=== PATIENT | male | born 1980 | race Caucasian/White ===

== ENCOUNTER 2022-01-31 15:24 | Inpatient (IN) | payer SELFPAY ==
[2022-01-31] VITALS (9 sets, daily range): BP systolic 118–144; BP diastolic 71–84; PULSE 105–121; RESP 16–27; TEMP 36.9–37.1; O2SAT 94–97; BMI 31.2; BMI 32.7
--- NOTE | 2022-01-31 15:42 | XRR_ITS ---
PROCEDURE INFORMATION: Exam: XR Right Tibia and Fibula Exam date and time: 01/31/2022 4:00 PM Age: 42 years old Clinical indication: Condition or disease; Other: Infection; Additional info: Eval for gas TECHNIQUE: Imaging protocol: XR Right tibia and fibula. Views: 2 views. COMPARISON: No relevant prior studies available. FINDINGS: Bones/joints: Osseous structures are intact. Negative for fracture. No irregular osseous erosions. Joint spaces are preserved. 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 Soft tissues: No subcutaneous emphysema. XR/XR tibia fibula RT 2V [id number] IMPRESSION: No acute findings.
--- NOTE | 2022-01-31 15:42 | XRR_ITS ---
PROCEDURE INFORMATION: Exam: XR Right Foot Exam date and time: 01/31/2022 4:05 PM Age: 42 years old Clinical indication: Condition or disease; Other: Infection; Additional info: Foot infection TECHNIQUE: Imaging protocol: XR Right foot. Views: 1 or 2 views. COMPARISON: CR XR tibia fibula RT 2V [id number] 01/31/2022 4:00 PM FINDINGS: Bones/joints: Osseous structures are intact. Negative for fracture. No irregular osseous erosions. Joint spaces are preserved. Soft tissues: No subcutaneous emphysema. XR/XR foot RT 2V [id number] IMPRESSION: No acute findings.
--- NOTE | 2022-01-31 16:24 | CTR_ITS ---
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 Contrast material: OMNI 300; Contrast volume: 95 ml; Contrast route: INTRAVENOUS (IV); COMPARISON: CR XR foot RT 2V [id number] 01/31/2022 4:05 PM RADIATION DOSE METRICS: Total DLP (mGy-cm): 245 FINDINGS: Soft tissue swelling around the 1st digit. Osseous structures are intact without fracture or irregular osseous erosions. No subcutaneous emphysema. Please note the distal most tuft of the 1st digit is excluded from the field of view. This, however, had a normal appearance on corresponding radiographs. CT/CT foot RT wo/w con [id number] IMPRESSION: Negative for subcutaneous emphysema. No evidence of osteomyelitis. Soft tissue swelling of the 1st digit.
--- NOTE | 2022-01-31 16:32 | ED_ITS ---
HPI - Extremity Problem General: Chief complaint: Extremity Injury, Lower Stated complaint: right foot pain/sore Time Seen by Provider: 01/31/22 15:42 Course Vital Signs: Vital signs: Vital Signs Temperature 98.5 F 01/31/22 15:34 Pulse Rate 121 H 01/31/22 15:34 Respiratory Rate 18 01/31/22 15:34 Blood Pressure 130/81 01/31/22 15:34 Pulse Oximetry 97 01/31/22 15:34 MDM - Extremity (Nontraumatic) Lab Data Radiology Impressions Foot X-Ray 01/31/22 15:42 IMPRESSION: No acute findings. Tibia/Fibula X-Ray 01/31/22 15:42 IMPRESSION: No acute findings. 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
--- NOTE | 2022-01-31 16:34 | ED_ITS ---
HPI - General Adult General: Chief complaint: Extremity Injury, Lower Stated complaint: right foot pain/sore Time Seen by Provider: 01/31/22 15:42 History of Present Illness: Patient is a 41-year-old male with history of uncontrolled diabetes c/b l toe amputation presenting to the emergency room with complaints of severe right-sided foot pain. Patient tells me about a week ago when he sustained a puncture wound to the base of his right big toe. Since then, patient has been doing well up until a day ago when she experienced sudden onset of pain that is now tracking up his leg. Patient says the pain is excruciating. Patient denies any drainage from the wound. Patient was told to come to the emergency room for evaluation and possible IV antibiotics. Patient says he has significant pain to walking. Denies any fever or chills, leg pain, nausea/vomting, other source of complaints today. Onset:1 week ago of wound, 1 day of significant foot pain Duration:acutely 1 week Location:home Severity:moderate Associated symptoms: Reports rash (+R foot pain); Deny chest pain, dyspnea, nausea, palpitations or vomiting Review of Systems Const: Denies: fever(s) or chills Eyes: Denies: change in vision ENMT: Denies: mouth pain Card: Denies: chest pain or palpitations Resp: Denies: dyspnea or non-productive cough GI: Denies: abdominal pain, nausea, vomiting or diarrhea : Denies: dysuria Musc: Reports: extremity pain Skin/Breast: Reports: rash (+R foot pain) Neuro: Denies: weakness in extremities Psych: Reports: other (Normal mood) Terry/Lymph: Denies: easy bruising PFS ED PFSH: Medical History (Updated 01/31/22 @ 17:53 by Rosalind Ayers MD) Diabetes Social History (Updated 01/31/22 @ 16:36 by Rosalind Ayers MD) Smoking and tobacco status: never smoked Alcohol intake: never Substance/Drug Use: never Physical Exam Const: COMMON NORMALS: alert HENMT: COMMON NORMALS: atraumatic HEAD & SCALP: atraumatic MOUTH: moist mucous membranes not abnormal Eye: COMMON NORMALS: EOMs intact bilaterally and conjunctivae normal CONJUNCTIVA: Yes conjunctivae normal Neck/C-Spine: COMMON NORMALS: full ROM and supple Resp: COMMON NORMALS: normal respiratory effort and clear to auscultation bilaterally AUSCULTATION: clear to auscultation bilaterally Cardio: RATE: tachycardic GI: COMMON NORMALS: Soft to palpation and non-tender PALPATION: Yes Soft to palpation Extremity: COMMON NORMALS: full ROM OTHER: +R foot plantar wound with significant surrounding tenderness palpation, +mild erythema and warmth on the plantar aspect of the foot Neuro: SENSORIUM/ORIENTATION: Yes alert MOTOR EXAM: No Abnormal motor strength present and Other motor observations present (no focal motor deficits) Psych: COMMON NORMALS: speech normal SPEECH: Yes normal speech MOOD & AFFECT: Yes euthymic mood Course Vital Signs: Vital signs: Vital Signs Temperature 98.5 F 01/31/22 15:34 Pulse Rate 110 H 01/31/22 17:49 Respiratory Rate 26 H 01/31/22 17:49 Blood Pressure 130/80 01/31/22 17:49 Pulse Oximetry 94 01/31/22 17:49 MDM - General Adult Medical Decision Making 41-year-old male with history of diabetes complain about left side of toe amputation presenting to the emergency room with concerns for right-sided plantar wound no significant right foot pain. On exam, patient is afebrile with significant tenderness palpation over the right plantar midfoot. XR not showing signs of gas pattern. Bedside ultrasound not show any gas gianni nicole. CT of the foot showed subcu edema consistent with cellulitis. White count 16.6 CRP and ESR elevated to 80. Creatinine was 1.4. Patient received 2 L of fluid, vancomycin, Zosyn, and clindamycin. At the present time, patient has pain improvement. Do not suspect necrotizing soft tissue infection currently. Given significant, elevated markers and vital signs, patient will be mated to hospital for observation and IV antibiotics. Disposition: admission Lab Data : 01/31/22 16:28 01/31/22 16:28 Radiology Impressions Foot X-Ray 01/31/22 15:42 IMPRESSION: No acute findings. Tibia/Fibula X-Ray 01/31/22 15:42 IMPRESSION: No acute findings. Foot CT 01/31/22 16:24 IMPRESSION: Negative for subcutaneous emphysema. No evidence of osteomyelitis. Soft tissue swelling of the 1st digit. Laboratory Results WBC 16.6 10^3/uL (4.0-10.0) H 01/31/22 16:28 RBC 5.97 10^6/uL (4.1-5.3) H 01/31/22 16: Hgb 15.9 g/dL (11.7-16.6) 01/31/22 16: Hct 48.7 % (42.0-52.0) 01/31/22 16: MCV 81.6 fl (80-94) 01/31/22 16: MCH 26.6 pg (28.0-34.0) L 01/31/22 16: MCHC 32.6 g/dL (30.0-36.0) 01/31/22 16: RDW 14.2 % (12.1-15.1) 01/31/22: Plt Count 310 10^3/cmm (130-400) 01/31/22 16: MPV 11.0 fL (7.4-10.4) H 01/31/22 16: Neut % (Auto) 76.1 % 01/31/22 16: Lymph % (Auto) 14.3 % 01/31/22 16: [place] % (Auto) 8.0 % 01/31/22 16: Eos % (Auto) 0.4 % 01/31/22: Baso % (Auto) 0.7 % 01/31/22: Neut # (Auto) 12.59 10^3/uL (1.8-7.7) H 01/31/22 16: Lymph # (Auto) 2.4 10^3/uL (0.8-4.8) 01/31/22: [place] # (Auto) 1.3 10^3/uL (0.2-0.9) H 01/31/22 16: Eos # (Auto) 0.1 10^3/uL (0.0-0.8) 01/31/22 16: Baso # (Auto) 0.1 10^3/uL (0.0-0.1) 01/31/22 16: Nucleated RBC % (auto) 0 % 01/31/22 16: Nucleated RBCs # 0.0 /100WBC 01/31/22 16: ESR 80 mm/hr (0-10) H 01/31/22 16:28 Sodium 130 mmol/L (136-145) L 01/31/22 16:28 Potassium 4.6 mmol/L (3.5-5.1) 01/31/22 16:28 Chloride 91 mmol/L (98-107) L 01/31/22 16:28 Carbon Dioxide 23 mmol/L (22-29) 01/31/22 16:28 Anion Gap 20.6 (5-19) H 01/31/22 16:28 BUN 19 mg/dL (6-20) 01/31/22 16:28 Creatinine 1.4 mg/dL (0.7-1.2) H 01/31/22 16:28 GFR Calculation 55.6 mL/min (90-130) L 01/31/22 16:28 Glucose 418 mg/dL (65-115) H 01/31/22 16:28 Calculated Osmolality 290 mOsm/kg (285-295) 01/31/22 16:28 Calcium 11.2 mg/dL (8.5-10.5) H 01/31/22 16:28 C-Reactive Protein 80.9 mg/L (0.0-4.9) H 01/31/22 16:28 Imaging Data Other Imaging: Radiologist's impression: [place] [address] CT Scan Report Signed Patient: Karel Sinha Unit #: [id number] : 1980 Age/Sex: 41 / M ADM Date: 01/31/22 Loc: ER Room/Bed: Attending Dr: Ordering Provider/Ordering MD: Rosalind Ayers MD Date of Service: 01/31/22 Procedure(s): CT foot RT wo/w con [id number] Accession Number(s): [id number] Report Number: [id number] PROCEDURE INFORMATION: Exam: CT EXTREMITY LOWER W RIGHT Exam date and time: 01/31/2022 4:41 PM Age: 42 years old Clinical indication: Condition or disease; Other: Diabetic wound foot; Patient HX: 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 Contrast material: OMNI 300; Contrast volume: 95 ml; Contrast route: INTRAVENOUS (IV);? COMPARISON: CR XR foot RT 2V [id number] 01/31/2022 4:05 PM RADIATION DOSE METRICS: Total DLP (mGy-cm): 245 FINDINGS: Soft tissue swelling around the 1st digit. Osseous structures are intact without fracture or irregular osseous erosions. No subcutaneous emphysema. Please note the distal most tuft of the 1st digit is excluded from the field of view. This, however, had a normal appearance on corresponding radiographs. CT/CT foot RT wo/w con [id number] IMPRESSION: Negative for subcutaneous emphysema. No evidence of osteomyelitis. Soft tissue swelling of the 1st digit. ? Dictated By: Devendra Dubois DO Signed By: Devendra Dubois DO Signed Date/Time: 01/31/22 1721 DD/ [address] [address] XRay Report Signed Patient: Karel Sinha Unit #: [id number] : 1980 Age/Sex: 42 / M ADM Date: 01/31/22 Loc: ER Room/Bed: Attending Dr: Ordering Provider/Ordering MD: Rosalind Ayers MD Date of Service: 01/31/22 Procedure(s): XR tibia fibula RT 2V [id number] Accession Number(s): [id number] Report Number: [id number] PROCEDURE INFORMATION: Exam: XR Right Tibia and Fibula Exam date and time: 01/31/2022 4:00 PM Age: 42 years old Clinical indication: Condition or disease; Other: Infection; Additional info: Eval for gas TECHNIQUE: Imaging protocol: XR Right tibia and fibula. Views: 2 views. COMPARISON: No relevant prior studies available. FINDINGS: Bones/joints: Osseous structures are intact. Negative for fracture. No irregular osseous erosions. Joint spaces are preserved. 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 Soft tissues: No subcutaneous emphysema. XR/XR tibia fibula RT 2V [id number] IMPRESSION: No acute findings. ? Dictated By: Devendra Dubois DO Signed By: Devendra Dubois DO Signed Date/Time: 01/31/221612 DD/ [address] [address] XRay Report Signed Patient: Karel Sinha Unit #: [id number] : 1980 Age/Sex: 42 / M ADM Date: 01/31/22 Loc: ER Room/Bed: Attending Dr: Ordering Provider/Ordering MD: Rosalind Ayers MD Date of Service: 01/31/22 Procedure(s): XR foot RT 2V 50323 Accession Number(s): [id number] Report Number: [id number] PROCEDURE INFORMATION: Exam: XR Right Foot Exam date and time: 01/31/2022 4:05 PM Age: 42 years old Clinical indication: Condition or disease; Other: Infection; Additional info: Foot infection TECHNIQUE: Imaging protocol: XR Right foot. Views: 1 or 2 views. COMPARISON: CR XR tibia fibula RT 2V [id number] 01/31/2022 4:00 PM FINDINGS: Bones/joints: Osseous structures are intact. Negative for fracture. No irregular osseous erosions. Joint spaces are preserved. Soft tissues: No subcutaneous emphysema. XR/XR foot RT 2V [id number] IMPRESSION: No acute findings. ? 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
[2022-01-31 16:42] LABS: Basophils # 0.1 10^3/uL (0.0-0.1); Basophils % 0.7 %; Eosinophils # 0.1 10^3/uL (0.0-0.8); Eosinophils % 0.4 %; Hematocrit 48.7 % (42.0-52.0); Hemoglobin 15.9 g/dL (11.7-16.6); Lymphocytes # 2.4 10^3/uL (0.8-4.8); Lymphocytes % 14.3 %; Mean Corpuscular HGB Conc 32.6 g/dL (30.0-36.0); Mean Corpuscular Hemoglobin 26.6 pg (28.0-34.0); Mean Corpuscular Volume 81.6 fl (80-94); Monocytes # 1.3 10^3/uL (0.2-0.9); Neutrophils # 12.59 10^3/uL (1.8-7.7); Neutrophils % 76.1 %; Nucleated Red Blood Cells % 0 %; Platelet Count 310 10^3/cmm (130-400); Red Blood Count 5.97 10^6/uL (4.1-5.3); Red Cell Distribution Width 14.2 % (12.1-15.1); White Blood Count 16.6 10^3/uL (4.0-10.0)
[2022-01-31 17:10] LABS: Anion Gap 20.6 (5-19); Blood Urea Nitrogen 19 mg/dL (6-20); C Reactive Protein 80.9 mg/L (0.0-4.9); Calcium 11.2 mg/dL (8.5-10.5); Carbon Dioxide 23 mmol/L (22-29); Chloride 91 mmol/L (98-107); Glomerular Filtration Rate 55.6 mL/min (90-130); Glucose 418 mg/dL (65-115); Osmolality Calculated 290 mOsm/kg (285-295); Potassium 4.6 mmol/L (3.5-5.1); Sodium 130 mmol/L (136-145)
[2022-01-31] MEDS: HYDROmorphone 1 mg/mL INJ 1 mL 0.5 MG IVP (17:13)
[2022-01-31] MEDS: clindamycin 600 MG/50 ML PREMIX 100 MG IV (17:13)
[2022-01-31] MEDS: sodium chloride 0.9% 1,000 ML 999 ML IV (17:14)
[2022-01-31] MEDS: piperacillin-tazobactam 4.5 GM in sodium chloride 0.9% (plus) 50 ML IV (17:15)
[2022-01-31 17:35] LABS: Erythrocyte Sedimentation Rate 80 mm/hr (0-10)
[2022-01-31] MEDS: vancomycin 1,000 MG in sodium chloride 0.9% 250 ML 250 MG IV (17:44)
--- NOTE | 2022-01-31 17:59 | P.HP_ITS ---
Providers/Chief Complaint Chief Complaint: right foot pain/sore History of Present Illness Karel iSnha is a 41 year old male with pmh of HTN,DM, DVT, lt toe amputation, came in with c/o worsening rt foot pain after he sustained a puncture wound about a week back at the base of his rt feet little finger, pain has got progressively worsened and now it is causing him severe pain with ambulation.He deny any drainage from the wound site. He deny any fever,chills,nausea,vomiting.Patient was not taking his medications for the last 2 weeks as he ran out of the supply and was not able to refill because of social issues. Upon arrival in the ER he was worked up for above mention. Pertinent imaging studies: CT foot RT wo/w con: Negative for subcutaneous emphysema. No evidence of osteomyelitis. Soft tissue swelling of the 5th digit. Pertinent Labs : WBC: 16.6, H&H : 15.9/48, PLT : 310 , Na: 130 , k : 4.6 , BUN /SCR : 19/1.4 , AG : 20 , RBS: 418 , ESR :80 , CRP: 80 Review of Systems General: Reports: 10 or more systems reviewed and unremarkable except in HPI and below Const: Denies: fever(s), chills, body aches, change in appetite or diaphoresis Card: Denies: palpitations, edema, swelling of feet/ankles, dyspnea on exer tion, orthopnea or leg pain with exertion Resp: Denies: dyspnea, productive cough, wheezing or pain on inspiration GI: Denies: abdominal pain, nausea, vomiting, diarrhea or constipation : Denies: flank pain or difficulty urinating Musc: Denies: back pain Neuro: Denies: headache(s) or confusion Medications/Allergies Home Medications Medication Instructions Recorded Confirmed Last Taken Type apixaban 2.5 mg tablet (Eliquis) 2.5 mg PO BID 01/31/22 01/31/22 01/31/22 History aspirin 81 mg tablet,delayed 81 mg PO DAILY 01/31/22 01/31/22 01/31/22 History release atorvastatin 20 mg tablet 20 mg PO DAILY 01/31/22 01/31/22 01/19/22 History PT OUT OF MED insulin glargine 100 unit/mL (3 35 unit SUBCUT BID 01/31/22 01/31/22 01/13/22 History mL) subcutaneous pen (Lantus PT IS OUT OF Solostar U-100 Insulin) MED metoprolol tartrate 50 mg tablet 50 mg PO BID 01/31/22 01/31/22 12/14/16 History PT OUT OF MED Allergies Allergy/AdvReac Type Severity Reaction Status Date / Time No Known Allergies Allergy Verified 01/31/22 16:48 PFSH Acute PFSH: Medical History (Updated 01/31/22 @ 21:35 by Valentin Starks MD) Diabetes Social History (Updated 01/31/22 @ 16:36 by Rosalind Ayers MD) Smoking and tobacco status: never smoked Alcohol intake: never Substance/Drug Use: never Vitals/I&O/Wt Last Vital Signs Temp 98.5 F 01/31/22 15:34 Pulse 110 H 01/31/22 17:49 Resp 26 H 01/31/22 17:49 BP 130/80 01/31/22 17:49 Pulse Ox 94 01/31/22 17:49 Weight last 48 hrs Weight 107.501 kg Physical Exam Const: COMMON NORMALS: patient oriented x3 HENMT: COMMON NORMALS: normocephalic and atraumatic HEAD & SCALP: normocephalic and atraumatic Chest: CHEST: Yes Symmetrical chest wall rise Resp: COMMON NORMALS: normal respiratory effort, No retractions, No use of accessory muscles and clear to auscultation bilaterally EFFORT & INSPECTION: Yes symmetric chest movement AUSCULTATION: clear to auscultation bilaterally Cardio: COMMON NORMALS: regular rate, regular rhythm, S1 normal heart sound present, S2 normal heart sound present, No gallops present (Cardio), No murmurs present (Cardio), No rub (Cardio) and Peripheral pulses 2+ throughout RATE: regular rate RHYTHM: regular rhythm HEART SOUNDS: S1 normal heart sound present and S2 normal heart sound present PERIPHERAL PULSES: Peripheral pulses 2+ throughout GI: COMMON NORMALS: Normal to inspection, nondistended, normoactive bowel sounds present, Soft to palpation, non-tender, No hepatosplenomegaly present and no masses AUSCULTATION: Yes normoactive bowel sounds PALPATION: Yes Soft to palpation and Yes No hepatosplenomegaly present RECTAL EXAM: Yes deferred Extremity: COMMON NORMALS: no clubbing, cyanosis or edema and no pedal edema NARRATIVE EXTREMITY EXAM: RT FEET 5 th toe base has erythematous wound, sever tenderness, no drainage Neuro: COMMON NORMALS: patient oriented x3 Data : 01/31/22 16:28 01/31/22 16:28 Micro: Microbiology 01/31/22 17:05 Blood Culture - Preliminary Blood SPECIMEN COLLECTED 01/31/22 16:28 Blood Culture - Preliminary Blood SPECIMEN COLLECTED A&P Assessment and plan (1) Cellulitis: Status: Acute (2) Puncture wound: Status: Acute (3) Foot pain: Status: Acute (4) Diabetes: Status: Acute (5) SHELDON (acute kidney injury): Status: Acute (6) Hypercalcemia: Status: Acute (7) Hypertension: Status: Acute Plan 41 year old male with pmh of HTN,DM, DVT, lt toe amputation, came in with c/o worsening rt foot pain after he sustained a puncture wound about a week. Assessment : #Rt feet Diabetic Foot Ulcer: CT foot RT wo/w con: Negative for subcutaneous emphysema. No evidence of osteomyelitis. Soft tissue swelling of the 5th digit. MRI of feet without contrast Pertinent Labs : WBC: 16.6 ESR :80 , CRP: 80 On Vanc and Zosyn Uncontrolled DM : Likely 2/2 to medication non compliance Hba1c Monitor FSG Carbohydrate consistent diet . Lantus 35 u sc BID LDSSI SHELDON v/s SHELDON ON CKD:Likely prerenal Baseline SCR is unknown Admission SCR :1.4 Monitor BMP Random Urine sodium Random Urine Creatinine I.V Hydration I/O Charting Avoid Nephrotoxics HTN: Continue M.T Hypercalcemia : Likely 2/2 to dehydration Continue I.V Fluids Monitor Serum Calcium Hyperglycemia : Code Status : Full Code DVT PPX: On lovenox Attestations Medical Necessity Statement*: Patient needs to be in hospital for the management of Diabetic feet ulcer,need for I.V Abxs, I.V hydration. Time Spent in Patient Care: Greater than 35 minutes (>than 50% of time spent in counselling and/or direct pt care on unit) . 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
[2022-01-31] MEDS: sodium chloride 0.9% 1,000 ML 100 ML IV (18:17)
[2022-01-31] MEDS: enoxaparin 40 mg/0.4 mL Syringe SUBCUT (18:17)
[2022-01-31] MEDS: insulin lispro 100 unit/1 mL SUBCUT (18:36)
[2022-01-31] MEDS: iohexol 300 mg/mL 100 mL Btl IV (19:39)
[2022-01-31] MEDS: metoprolol tartrate 50 mg Tablet PO (20:44)
[2022-01-31 20:49] LABS: Glucose Point of Care 241 mg/dL (70-110)
[2022-01-31] MEDS: oxyCODONE-APAP 5-325 mg Tablet 1 TAB PO (20:51)
[2022-01-31] MEDS: insulin glargine 100 units/1 mL 35 UNIT SUBCUT (20:52)
[2022-01-31] MEDS: morphine 4 mg/mL SDV 1 mL IVP (23:14)
[2022-02-01] VITALS (9 sets, daily range): BP systolic 119–131; BP diastolic 77–80; PULSE 91–107; RESP 16–20; TEMP 36.7–37.3; O2SAT 93–96
[2022-02-01] MEDS: piperacillin-tazobactam 3.375 GM in sodium chloride 0.9% (plus) 50 ML IV ×3 (01:28→21:04)
[2022-02-01 03:30] LABS: Basophils # 0.1 10^3/uL (0.0-0.1); Basophils % 0.9 %; Eosinophils # 0.1 10^3/uL (0.0-0.8); Eosinophils % 0.8 %; Hematocrit 43.8 % (42.0-52.0); Hemoglobin 13.9 g/dL (11.7-16.6); Lymphocytes # 2.4 10^3/uL (0.8-4.8); Lymphocytes % 17.8 %; Mean Corpuscular HGB Conc 31.7 g/dL (30.0-36.0); Mean Corpuscular Hemoglobin 26.2 pg (28.0-34.0); Mean Corpuscular Volume 82.5 fl (80-94); Monocytes # 1.1 10^3/uL (0.2-0.9); Monocytes % 8.1 %; Neutrophils # 9.63 10^3/uL (1.8-7.7); Nucleated Red Blood Cells % 0 %; Platelet Count 259 10^3/cmm (130-400); Red Blood Count 5.31 10^6/uL (4.1-5.3); Red Cell Distribution Width 14.3 % (12.1-15.1); White Blood Count 13.4 10^3/uL (4.0-10.0)
[2022-02-01 03:33] LABS: Erythrocyte Sedimentation Rate 66 mm/hr (0-10)
[2022-02-01 03:59] LABS: C Reactive Protein 176.2 mg/L (0.0-4.9)
[2022-02-01 04:02] LABS: Alanine Aminotransferase 17 U/L (0-41); Albumin Level 3.3 g/dL (3.5-5.2); Alkaline Phosphatase 98 IU/L (40-130); Anion Gap 18.1 (5-19); Aspartate Amino Transferase 8 U/L (0-40); Blood Urea Nitrogen 21 mg/dL (6-20); Calcium 9.3 mg/dL (8.5-10.5); Carbon Dioxide 23 mmol/L (22-29); Chloride 99 mmol/L (98-107); Glomerular Filtration Rate 55.6 mL/min (90-130); Glucose 283 mg/dL (65-115); Osmolality Calculated 295 mOsm/kg (285-295); Potassium 4.1 mmol/L (3.5-5.1); Sodium 136 mmol/L (136-145); Total Bilirubin 0.5 mg/dL (0.15-1.2); Total Protein 6.3 g/dL (6.6-8.7)
[2022-02-01 04:09] LABS: Procalcitonin 0.17 ng/mL (0-0.5)
[2022-02-01] MEDS: sodium chloride 0.9% 1,000 ML 100 ML IV ×2 (04:19→21:07)
[2022-02-01] MEDS: vancomycin 1,500 MG/300 ML PIGGYBACK 200 MG IV ×2 (04:21→17:03)
[2022-02-01 06:46] LABS: Glucose Point of Care 292 mg/dL (70-110)
[2022-02-01] MEDS: aspirin 81 mg EC Tablet PO (07:41)
[2022-02-01] MEDS: atorvastatin 40 mg Tablet 20 MG PO (07:41)
[2022-02-01] MEDS: metoprolol tartrate 50 mg Tablet PO ×2 (07:42→21:07)
[2022-02-01] MEDS: insulin lispro 100 unit/1 mL SUBCUT ×3 (07:42→18:28)
[2022-02-01] MEDS: morphine 4 mg/mL SDV 1 mL IVP ×2 (08:10→13:51)
[2022-02-01] MEDS: insulin glargine 100 units/1 mL 35 UNIT SUBCUT ×2 (09:17→18:28)
--- NOTE | 2022-02-01 09:24 | MR_ITS ---
WS: [id number] MRI RIGHT FOOT without CONTRAST. COMPARISON: RIGHT foot radiograph from [address] 01/31/2022. Multiplanar, multisequence imaging is performed without contrast. Very superficial soft tissue irregularity along the plantar surface of the fourth metatarsal head. Th ere is a small amount of edema. No full-thickness ulcer extending to the bone. No marrow edema. There is a small amount of fluid around the fourth metatarsal head with mild soft tissue edema. The remain ing metatarsal heads are negative. No additional fluid. No marrow signal abnormality. Numerous hammertoe deformities. MR/MR foot RT wo con* [id number] IMPRESSION: 1. Very superficial ulceration noted along the plantar surface of the fourth m etatarsal head. 2. Small amount of fluid surrounding the fourth metatarsal head and soft tissu e edema. Consistent with synovitis. No signal within the marrow to suggest oste omyelitis on this unenhanced exam.
--- NOTE | 2022-02-01 09:25 | P.PN_ITS ---
Subjective Subjective: Patient was seen and examined this morning continued complaint of significant pain in the right feet ,with drainage , current plan is to get MRI of the right feet without contrast to rule out osteo, Continue with IV antibiotics, WBC count is coming down, ESR has trended down. Medications: Medication Review Details: Generic Name Dose Route Start Last Admin Trade Name Sylvester PRN Reason Stop Dose Admin Aspirin 81 mg 02/01/22 09:00 02/01/22 07:41 Aspirin 81 Mg Ec Tablet PO 81 mg DAILY URSULA Administration Atorvastatin Calci um 20 mg 02/01/22 09:00 02/01/22 07:41 Atorvastatin 40 Mg Tablet PO 20 mg DAILY URSULA Administration Enoxaparin Sodium 40 mg 01/31/22 18:00 01/31/22 18:17 Enoxaparin 40 Mg /0.4 Ml Syringe SUBCUT 40 mg Q24H URSULA Administration Sodium Chloride 1,000 mls @ 100 m ls/hr 01/31/22 18:00 02/01/22 04:19 Sodium Chloride 0.9% IV 100 mls/hr .Q10H URSULA Administration Piperacillin Sod/T azobactam 50 mls @ 12.5 mls /hr 02/01/22 01:00 02/01/22 01:28 Sod 3.375 gm/ So dium Chloride IV 12.5 mls/hr Q8H URSULA Administration Protocol Vancomycin/PEG/NAD A/Lysine/Water 1,500 mg in 300 m ls @ 200 mls/hr 02/01/22 05:00 02/01/22 04:21 Vancocin IV 200 mls/hr Q12H URSULA Administration Insulin Glargine 35 unit 01/31/22 19:52 01/31/22 20:52 Insulin Glargine 100 Units/1 Ml SUBCUT 35 unit BID URSULA Administration Insulin Human Lisp ro 0 unit 01/31/22 18:00 02/01/22 07:42 Insulin Lispro 1 00 Unit/1 Ml SUBCUT 10 unit TIDWM URSULA Administration Protocol Metoprolol Tartrat e 50 mg 01/31/22 20:00 02/01/22 07:42 Metoprolol Tartr ate 50 Mg Tablet PO 50 mg BID@0900,2100 URSULA Administration Morphine Sulfate 4 mg 01/31/22 17:53 02/01/22 08:10 Morphine 4 Mg/Ml Sdv 1 Ml IVP 4 mg Q4H PRN Administration SEVERE PAIN Oxycodone/Acetamin ophen 1 tab 01/31/22 17:52 01/31/22 20:51 Oxycodone-Apap 5 -325 Mg Tablet PO 1 tab Q4H PRN Administration SEVERE PAIN Vitals/I&O/Wt Last Vital Signs Temp 99.2 F 02/01/22 07:47 Pulse 102 H 02/01/22 08:09 Resp 20 H 02/01/22 08:10 BP 119/79 02/01/22 07:47 Pulse Ox 94 02/01/22 08:09 01/31/22 02/01/22 02/01/22 22:59 06:59 14:59 Intake Total 2099 Output Total 200 / 200 Balance 2099 -200 / -200 Weight last 48 hrs Weight 112.491 kg Weight 107.501 kg Physical Exam Const: COMMON NORMALS: patient oriented x3 HENMT: COMMON NORMALS: normocephalic and atraumatic HEAD & SCALP: normocephalic and atraumatic Chest: CHEST: Yes Symmetrical chest wall rise Resp: COMMON NORMALS: normal respiratory effort, No retractions, No use of accessory muscles and clear to auscultation bilaterally EFFORT & INSPECTION: Yes symmetric chest movement AUSCULTATION: clear to auscultation bilaterally Cardio: COMMON NORMALS: regular rate, regular rhythm, S1 normal heart sound present, S2 normal heart sound present, No gallops present (Cardio), No murmurs present (Cardio), No rub (Cardio) and Peripheral pulses 2+ throughout RATE: regular rate RHYTHM: regular rhythm HEART SOUNDS: S1 normal heart sound present and S2 normal heart sound present PERIPHERAL PULSES: Peripheral pulses 2+ throughout GI: COMMON NORMALS: Normal to inspection, nondistended, normoactive bowel sounds present, Soft to palpation, non-tender, No hepatosplenomegaly present and no masses AUSCULTATION: Yes normoactive bowel sounds PALPATION: Yes Soft to palpation and Yes No hepatosplenomegaly present RECTAL EXAM: Yes deferred Extremity: COMMON NORMALS: no clubbing, cyanosis or edema and no pedal edema NARRATIVE EXTREMITY EXAM: RT FEET 5 th toe base has erythematous wound, sever tenderness, no drainage Neuro: COMMON NORMALS: patient oriented x3 Data : 02/01/22 02:34 02/01/22 02:34 Micro: Microbiology 01/31/22 17:05 Blood Culture - Preliminary Blood SPECIMEN COLLECTED 01/31/22 16:28 Blood Culture - Preliminary Blood SPECIMEN COLLECTED A&P Assessment and plan (1) Cellulitis: Status: Acute (2) Puncture wound: Status: Acute (3) Foot pain: Status: Acute (4) Diabetes: Status: Acute (5) SHELDON (acute kidney injury): Status: Acute (6) Hypercalcemia: Status: Acute (7) Hypertension: Status: Acute Plan 41 year old male with pmh of HTN,DM, DVT, lt toe amputation, came in with c/o worsening rt foot pain after he sustained a puncture wound about a week. Assessment : #Rt feet Diabetic Foot Ulcer: CT foot RT wo/w con: Negative for subcutaneous emphysema. No evidence of osteomyelitis. Soft tissue swelling of the 5th digit. MRI of feet without contrast Pertinent Labs : WBC: 16.6 ESR :80 , CRP: 80 On Vanc and Zosyn Uncontrolled DM : Likely 2/2 to medication non compliance Hba1c Monitor FSG Carbohydrate consistent diet . Lantus 35 u sc BID LDSSI SHELDON v/s SHELDON ON CKD:Likely prerenal Baseline SCR is unknown Admission SCR :1.4 Monitor BMP Random Urine sodium Random Urine Creatinine I.V Hydration I/O Charting Avoid Nephrotoxics HTN: Continue M.T Hypercalcemia : Likely 2/2 to dehydration Continue I.V Fluids Monitor Serum Calcium Hyperglycemia : Code Status : Full Code DVT PPX: On lovenox Attestations Medical Necessity Statement*: Patient is to be in hospital for IV antibiotics, pain control. Time Spent in Patient Care: 16 - 35 minutes (>than 50% of time spent in counselling and/or direct pt care on unit) . 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
[2022-02-01 09:31] LABS: Glucose Point of Care 347 mg/dL (70-110)
[2022-02-01] MEDS: oxyCODONE-APAP 5-325 mg Tablet 1 TAB PO ×2 (11:19→17:02)
[2022-02-01 12:34] LABS: Glucose Point of Care 310 mg/dL (70-110)
[2022-02-01] MEDS: enoxaparin 40 mg/0.4 mL Syringe SUBCUT (17:02)
[2022-02-01 17:36] LABS: Glucose Point of Care 159 mg/dL (70-110)
[2022-02-01] MEDS: pantoprazole 40 mg SDV IVP (17:50)
[2022-02-01 20:52] LABS: Glucose Point of Care 258 mg/dL (70-110)
[2022-02-02] VITALS (8 sets, daily range): BP systolic 133–154; BP diastolic 72–88; PULSE 86–113; RESP 12–18; TEMP 37.1–38.3; O2SAT 92–97
--- NOTE | 2022-02-02 00:12 | PC.NURSE ---
i reported high temp 101.0 to nurse
[2022-02-02] MEDS: acetaminophen 325 mg Tablet 650 MG PO (00:19)
[2022-02-02] MEDS: piperacillin-tazobactam 3.375 GM in sodium chloride 0.9% (plus) 50 ML IV ×3 (03:18→20:04)
[2022-02-02 04:52] LABS: Basophils # 0.1 10^3/uL (0.0-0.1); Basophils % 0.7 %; Eosinophils # 0.2 10^3/uL (0.0-0.8); Eosinophils % 1.8 %; Hematocrit 41.5 % (42.0-52.0); Lymphocytes # 2.3 10^3/uL (0.8-4.8); Lymphocytes % 20.4 %; Mean Corpuscular HGB Conc 31.3 g/dL (30.0-36.0); Mean Corpuscular Hemoglobin 26.3 pg (28.0-34.0); Mean Platelet Volume 10.6 fL (7.4-10.4); Monocytes # 0.9 10^3/uL (0.2-0.9); Monocytes % 7.8 %; Neutrophils # 7.88 10^3/uL (1.8-7.7); Neutrophils % 68.9 %; Nucleated Red Blood Cells % 0 %; Platelet Count 223 10^3/cmm (130-400); Red Blood Count 4.94 10^6/uL (4.1-5.3); Red Cell Distribution Width 14.3 % (12.1-15.1); White Blood Count 11.4 10^3/uL (4.0-10.0)
[2022-02-02] MEDS: vancomycin 1,500 MG/300 ML PIGGYBACK 200 MG IV ×2 (05:13→16:48)
[2022-02-02 05:22] LABS: Anion Gap 16.3 (5-19); Blood Urea Nitrogen 15 mg/dL (6-20); Calcium 9.1 mg/dL (8.5-10.5); Carbon Dioxide 22 mmol/L (22-29); Chloride 101 mmol/L (98-107); Glomerular Filtration Rate 66.4 mL/min (90-130); Glucose 228 mg/dL (65-115); Osmolality Calculated 288 mOsm/kg (285-295); Potassium 4.3 mmol/L (3.5-5.1); Sodium 135 mmol/L (136-145)
[2022-02-02] MEDS: metoprolol tartrate 50 mg Tablet PO ×2 (08:39→20:03)
[2022-02-02] MEDS: aspirin 81 mg EC Tablet PO (08:39)
[2022-02-02] MEDS: pantoprazole DR 40 mg Tablet PO (08:39)
[2022-02-02] MEDS: insulin glargine 100 units/1 mL 35 UNIT SUBCUT ×2 (08:39→17:52)
[2022-02-02] MEDS: atorvastatin 40 mg Tablet 20 MG PO (08:39)
[2022-02-02] MEDS: insulin lispro 100 unit/1 mL SUBCUT ×3 (10:12→17:52)
--- NOTE | 2022-02-02 11:05 | PC.CHAP ---
Pastoral Care Encounter/Spiritual Assessment Type of Contact [] Declined principal engineer visit [] Patient/Family/Request visit [] Outpatient visit [] Follow-up visit [] Physician referral [] Code/Alert [x] Routine visit [] Staff referral [] Actively dying [] Patient sleeping [] Family support [] [] Out of room [] Palliative care [] [] Receiving care in room [] Pre-surgical visit [] Trauma [] Long length of stay [] ICU visit [] Other: Relational/Emotional Strength [x] Patient feels connected with others/family/visitors/staff [] Distress [] Loneliness/isolation [] Abandonment Spirituality of Patient [x] Person of Elsa [] Attends Yarsani of their Elsa x[] Believes in Prayer [] Reads Bible or Pentecostal materials [x] There are Spiritual issues to be addressed Blowing Weasand Interventions [x] Prayer [] Active listening [] Non-anxious presence [] Spiritual/emotional support [] Crisis/trauma care [] Spiritual counseling [] Bereavement support [] Provided bereavement packet [] Provided Bible/devotional materials [] Provided toy/stuffed animal, coloring book to patient or family member [] Provided Communion [] Anointing/[place] [] Salvation [x] Completed spiritual assessment [] Other: Impact on Illness or Injury [] Angry [] Fearful [] Anxious [] Often cries [] Exhaustion [] Unable to work [] Unable to attend jainism [] Unable to walk/stand [] Unable to read [] Unable to drive [] Unable to eat/drink [] Unable to sleep [] Unable to be with family [] Patient intubated [] Other: Summary Time spent with patient 10 min
[2022-02-02 12:54] LABS: Glucose Point of Care 328 mg/dL (70-110)
[2022-02-02 16:26] LABS: Vancomycin Trough 17.5 ug/mL (10-15)
--- NOTE | 2022-02-02 16:29 | PM.PN ---
Subjective Subjective: Patient was seen and examined this morning T-max overnight was: 101 No other acute event. Medications: Medication Review Details: Generic Name Dose Route Start Last Admin Trade Name Freq PRN Reason Stop Dose Admin Aspirin 81 mg 02/01/22 09:00 02/01/22 07:41 Aspirin 81 Mg Ec Tablet PO 81 mg DAILY URSULA Administration Atorvastatin Calci um 20 mg 02/01/22 09:00 02/01/22 07:41 Atorvastatin 40 Mg Tablet PO 20 mg DAILY URSULA Administration Enoxaparin Sodium 40 mg 01/31/22 18:00 01/31/22 18:17 Enoxaparin 40 Mg /0.4 Ml Syringe SUBCUT 40 mg Q24H URSULA Administration Sodium Chloride 1,000 mls @ 100 m ls/hr 01/31/22 18:00 02/01/22 04:19 Sodium Chloride 0.9% IV 100 mls/hr .Q10H URSULA Administration Piperacillin Sod/T azobactam 50 mls @ 12.5 mls /hr 02/01/22 01:00 02/01/22 01:28 Sod 3.375 gm/ So dium Chloride IV 12.5 mls/hr Q8H URSULA Administration Protocol Vancomycin/PEG/NAD A/Lysine/Water 1,500 mg in 300 m ls @ 200 mls/hr 02/01/22 05:00 02/01/22 04:21 Vancocin IV 200 mls/hr Q12H URSULA Administration Insulin Glargine 35 unit 01/31/22 19:52 01/31/22 20:52 Insulin Glargine 100 Units/1 Ml SUBCUT 35 unit BID URSULA Administration Insulin Human Lisp ro 0 unit 01/31/22 18:00 02/01/22 07:42 Insulin Lispro 1 00 Unit/1 Ml SUBCUT 10 unit TIDWM URSULA Administration Protocol Metoprolol Tartrat e 50 mg 01/31/22 20:00 02/01/22 07:42 Metoprolol Tartr ate 50 Mg Tablet PO 50 mg BID@0900,2100 URSULA Administration Morphine Sulfate 4 mg 01/31/22 17:53 02/01/22 08:10 Morphine 4 Mg/Ml Sdv 1 Ml IVP 4 mg Q4H PRN Administration SEVERE PAIN Oxycodone/Acetamin ophen 1 tab 01/31/22 17:52 01/31/22 20:51 Oxycodone-Apap 5 -325 Mg Tablet PO 1 tab Q4H PRN Administration SEVERE PAIN Vitals/I&O/Wt Last Vital Signs Temp 98.8 F 02/02/22 06:58 Pulse 88 02/02/22 11:18 Resp 12 02/02/22 11:18 BP 133/78 02/02/22 11:18 Pulse Ox 97 02/02/22 11:18 02/02/22 02/02/22 02/02/22 06:59 14:59 22:59 Intake Total 290 / 3140 350 / 350 Output Total 1200 / 1400 Balance -910 / 1740 350 / 350 Weight last 48 hrs Weight 112.491 kg Physical Exam Const: COMMON NORMALS: patient oriented x3 HENMT: COMMON NORMALS: normocephalic and atraumatic HEAD & SCALP: normocephalic and atraumatic Chest: CHEST: Yes Symmetrical chest wall rise Resp: COMMON NORMALS: normal respiratory effort, No retractions, No use of accessory muscles and clear to auscultation bilaterally EFFORT & INSPECTION: Yes symmetric chest movement AUSCULTATION: clear to auscultation bilaterally Cardio: COMMON NORMALS: regular rate, regular rhythm, S1 normal heart sound present, S2 normal heart sound present, No gallops present (Cardio), No murmurs present (Cardio), No rub (Cardio) and Peripheral pulses 2+ throughout RATE: regular rate RHYTHM: regular rhythm HEART SOUNDS: S1 normal heart sound present and S2 normal heart sound present PERIPHERAL PULSES: Peripheral pulses 2+ throughout GI: COMMON NORMALS: Normal to inspection, nondistended, normoactive bowel sounds present, Soft to palpation, non-tender, No hepatosplenomegaly present and no masses AUSCULTATION: Yes normoactive bowel sounds PALPATION: Yes Soft to palpation and Yes No hepatosplenomegaly present RECTAL EXAM: Yes deferred Extremity: COMMON NORMALS: no clubbing, cyanosis or edema and no pedal edema NARRATIVE EXTREMITY EXAM: RT FEET 5 th toe base has erythematous wound, sever tenderness, no drainage Neuro: COMMON NORMALS: patient oriented x3 Data : 02/02/22 04:24 02/02/22 04:24 Micro: Microbiology 01/31/22 17:05 Blood Culture - Preliminary Blood NEGATIVE TO DATE 01/31/22 16:28 Blood Culture - Preliminary Blood NEGATIVE TO DATE A&P Assessment and plan (1) Cellulitis: Status: Acute (2) Puncture wound: Status: Acute (3) Foot pain: Status: Acute (4) Diabetes: Status: Acute (5) SHELDON (acute kidney injury): Status: Acute (6) Hypercalcemia: Status: Acute (7) Hypertension: Status: Acute Plan 41 year old male with pmh of HTN,DM, DVT, lt toe amputation, came in with c/o worsening rt foot pain after he sustained a puncture wound about a week. Assessment : #Rt feet Diabetic Foot Ulcer: CT foot RT wo/w con: Negative for subcutaneous emphysema. No evidence of osteomyelitis. Soft tissue swelling of the 5th digit. MRI of feet without contrast : Ruled out osteo , superficial ulceration . Pertinent Labs : WBC: 16.6 ESR :80 , CRP: 80 On Vanc and Zosyn Uncontrolled DM : Likely 2/2 to medication non compliance Hba1c Monitor FSG Carbohydrate consistent diet . Lantus 35 u sc BID LDSSI SHELDON v/s SHELDON ON CKD:Likely prerenal Baseline SCR is unknown Admission SCR :1.4 Monitor BMP Random Urine sodium Random Urine Creatinine I.V Hydration I/O Charting Avoid Nephrotoxics HTN: Continue M.T Hypercalcemia : Likely 2/2 to dehydration Continue I.V Fluids Monitor Serum Calcium Hyperglycemia : Code Status : Full Code DVT PPX: On lovenox Attestations Medical Necessity Statement*: Patient needs to be in hospital for IV antibiotic monitoring for fever , likely discharge if he continues to remain afebrile in next 24 hours. Coding Level of Care Code Acute Transfusion Aide for [facility] Fwd Exam Detailed Diagnoses Cellulitis L03.90 Puncture wound T14.8XXA Foot pain M79.673 Diabetes E11.9 SHELDON (acute kidney injury) N17.9 Hypercalcemia E83.52 Hypertension I10
[2022-02-02] MEDS: oxyCODONE-APAP 5-325 mg Tablet 1 TAB PO ×2 (16:47→23:19)
[2022-02-02] MEDS: enoxaparin 40 mg/0.4 mL Syringe SUBCUT (16:48)
[2022-02-02] MEDS: sodium chloride 0.9% 1,000 ML 100 ML IV (16:49)
[2022-02-02 17:43] LABS: Glucose Point of Care 186 mg/dL (70-110)
[2022-02-02 21:02] LABS: Glucose Point of Care 232 mg/dL (70-110)
[2022-02-02 21:03] LABS: Glucose Point of Care 216 mg/dL (70-110)
[2022-02-03 04:00] VITALS: BP 146/91; PULSE 91; RESP 17; TEMP 37.1; O2SAT 96
[2022-02-03] MEDS: piperacillin-tazobactam 3.375 GM in sodium chloride 0.9% (plus) 50 ML IV (04:00)
[2022-02-03] MEDS: sodium chloride 0.9% 1,000 ML 100 ML IV (04:00)
[2022-02-03 05:45] LABS: Basophils # 0.1 10^3/uL (0.0-0.1); Basophils % 0.7 %; Eosinophils # 0.2 10^3/uL (0.0-0.8); Eosinophils % 1.8 %; Hematocrit 38.7 % (42.0-52.0); Hemoglobin 12.3 g/dL (11.7-16.6); Lymphocytes # 2.2 10^3/uL (0.8-4.8); Lymphocytes % 20.3 %; Mean Corpuscular HGB Conc 31.8 g/dL (30.0-36.0); Mean Corpuscular Hemoglobin 26.6 pg (28.0-34.0); Mean Corpuscular Volume 83.8 fl (80-94); Mean Platelet Volume 10.8 fL (7.4-10.4); Monocytes # 0.8 10^3/uL (0.2-0.9); Monocytes % 6.9 %; Neutrophils # 7.55 10^3/uL (1.8-7.7); Neutrophils % 69.7 %; Nucleated Red Blood Cells % 0 %; Platelet Count 222 10^3/cmm (130-400); Red Blood Count 4.62 10^6/uL (4.1-5.3); Red Cell Distribution Width 14.1 % (12.1-15.1); White Blood Count 10.9 10^3/uL (4.0-10.0)
[2022-02-03 05:55] LABS: Blood Urea Nitrogen 11 mg/dL (6-20); Calcium 8.2 mg/dL (8.5-10.5); Carbon Dioxide 20 mmol/L (22-29); Chloride 101 mmol/L (98-107); Glomerular Filtration Rate 73.4 mL/min (90-130); Glucose 155 mg/dL (65-115); Osmolality Calculated 285 mOsm/kg (285-295); Sodium 136 mmol/L (136-145)
[2022-02-03] MEDS: vancomycin 1,500 MG/300 ML PIGGYBACK 200 MG IV (06:01)
[2022-02-03 06:17] LABS: Glucose Point of Care 154 mg/dL (70-110)
[2022-02-03 07:10] VITALS: BP 143/80; PULSE 89; RESP 14; TEMP 37.1; O2SAT 96
[2022-02-03] MEDS: metoprolol tartrate 50 mg Tablet PO (07:57)
[2022-02-03] MEDS: atorvastatin 40 mg Tablet 20 MG PO (07:57)
[2022-02-03] MEDS: aspirin 81 mg EC Tablet PO (07:57)
[2022-02-03] MEDS: oxyCODONE-APAP 5-325 mg Tablet 1 TAB PO ×2 (07:57→13:13)
[2022-02-03] MEDS: pantoprazole DR 40 mg Tablet PO (07:57)
[2022-02-03] MEDS: insulin glargine 100 units/1 mL 35 UNIT SUBCUT (07:58)
[2022-02-03] MEDS: insulin lispro 100 unit/1 mL SUBCUT ×2 (07:58→13:14)
[2022-02-03 11:17] LABS: Glucose Point of Care 194 mg/dL (70-110)
[2022-02-03 11:56] VITALS: BP 142/81; PULSE 85; RESP 12; TEMP 37.3; O2SAT 98
--- NOTE | 2022-02-03 12:39 | P.DS_ITS ---
Discharge Providers Date of Admission: 02/01/22 14:40 Date of Discharge: February 03, 2022 Attending Provider at Admission: Valentin Starks MD Attending Provider at Discharge: Valentin Starks MD Diagnoses at Discharge Discharge Diagnosis (1) Cellulitis: Status: Acute (2) Puncture wound: Status: Acute (3) Foot pain: Status: Acute (4) Diabetes: Status: Acute (5) SHELDON (acute kidney injury): Status: Acute (6) Hypercalcemia: Status: Acute (7) Hypertension: Status: Acute Reason for Visit Reason for Visit: right foot pain/sore Hospital Course Hospital Course HPI: Karel Sinha is a 41 year old male with pmh of HTN,DM, DVT, lt toe amputation, came in with c/o worsening rt foot pain after he sustained a puncture wound about a week back at the base of his rt feet little finger, pain has got progressively worsened and now it is causing him severe pain with ambulation.He deny any drainage from the wound site. He deny any fever,chills,nausea,vomiting.Patient was not taking his medications for the last 2 weeks as he ran out of the supply and was not able to refill be cause of social issues. Upon arrival in the ER he was worked up for above mention. Pertinent imaging studies: CT foot RT wo/w con: Negative for subcutaneous emphysema. No evidence of osteomyelitis. Soft tissue swelling of the 5th digit. Pertinent Labs : WBC: 16.6, H&H : 15.9/48, PLT : 310 , Na: 130 , k : 4.6 , BUN /SCR : 19/1.4 , AG : 20 , RBS: 418 , ESR :80 , CRP: 80 Hospital course: Patient was admitted for the management of right feet diabetic ulcer: CT foot RT wo/w con: Negative for subcutaneous emphysema. No evidence of osteomyelitis. Soft tissue swelling of the 5th digit. MRI of feet without contrast: Very superficial ulceration noted along the plantar surface of the fourth metatarsal head.Small amount of fluid surrounding the fourth metatarsal head and soft tis pham edema. Consistent with synovitis. No signal within the marrow to suggest osteomyelitis on this unenhanced exam. Blood cultures are negative, he was kept on broad-spectrum antibiotics during the hospital stay ESR CRP were monitored. He did have 1 episode of temperature spike during the hospital: Noted T-max of: 101, thereafter he remained afebrile, He was discharged on Bactrim and levofloxacin for 1 week. Patient was also managed for his other comorbid conditions. Patient responded well to above medical management and being discharged stable condition to home. Physical Exam Const: COMMON NORMALS: patient oriented x3 HENMT: COMMON NORMALS: normocephalic and atraumatic HEAD & SCALP: normocephalic and atraumatic Chest: CHEST: Yes Symmetrical chest wall rise Resp: COMMON NORMALS: normal respiratory effort, No retractions, No use of accessory muscles and clear to auscultation bilaterally EFFORT & INSPECTION: Yes symmetric chest movement AUSCULTATION: clear to auscultation bilaterally Cardio: COMMON NORMALS: regular rate, regular rhythm, S1 normal heart sound present, S2 normal heart sound present, No gallops present (Cardio), No murmurs present (Cardio), No rub (Cardio) and Peripheral pulses 2+ throughout RATE: regular rate RHYTHM: regular rhythm HEART SOUNDS: S1 normal heart sound present and S2 normal heart sound present PERIPHERAL PULSES: Peripheral pulses 2+ throughout GI: COMMON NORMALS: Normal to inspection, nondistended, normoactive bowel sounds present, Soft to palpation, non-tender, No hepatosplenomegaly present and no masses AUSCULTATION: Yes normoactive bowel sounds PALPATION: Yes Soft to palpation and Yes No hepatosplenomegaly present RECTAL EXAM: Yes deferred Extremity: COMMON NORMALS: no clubbing, cyanosis or edema and no pedal edema NARRATIVE EXTREMITY EXAM: RT FEET 5 th toe base has erythematous wound Neuro: COMMON NORMALS: patient oriented x3 Discharge Data Studies Completed and Pending Completed Studies During Hospitalization Category Date Time Status CT foot RT wo/w con [id number] Stat Cat Scan 01/31/22 16:24 Completed XR foot RT 2V [id number] Urgent Exams 01/31/22 15:42 Completed XR tibia fibula RT 2V [id number] Urgent Exams 01/31/22 15:42 Completed MR foot RT wo con* [id number] Routine MRI 02/01/22 09:24 Completed Pending at discharge Category Date Time Status Blood Culture Stat Lab 01/31/22 17:05 Results Radiology Impressions Foot X-Ray 01/31/22 15:42 IMPRESSION: No acute findings. Tibia/Fibula X-Ray 01/31/22 15:42 IMPRESSION: No acute findings. Foot CT 01/31/22 16:24 IMPRESSION: Negative for subcutaneous emphysema. No evidence of osteomyelitis. Soft tissue swelling of the 1st digit. Foot MRI 02/01/22 09:24 IMPRESSION: 1. Very superficial ulceration noted along the plantar surface of the fourth m etatarsal head. 2. Small amount of fluid surrounding the fourth metatarsal head and soft tissue edema. Consistent with synovitis. No signal within the marrow to suggest osteomyelitis on this unenhanced exam. Laboratory Results WBC 10.9 10^3/uL (4.0-10.0) H 02/03/22 05:09 RBC 4.62 10^6/uL (4.1-5.3) 02/03/22 05:09 Hgb 12.3 g/dL (11.7-16.6) 02/03/22 05:09 Hct 38.7 % (42.0-52.0) L 02/03/22 05:09 MCV 83.8 fl (80-94) 02/03/22 05:09 MCH 26.6 pg (28.0-34.0) L 02/03/22 05:09 MCHC 31.8 g/dL (30.0-36.0) 02/03/22 05:09 RDW 14.1 % (12.1-15.1) 02/03/22 05:09 Plt Count 222 10^3/cmm (130-400) 02/03/22 05:09 MPV 10.8 fL (7.4-10.4) H 02/03/22 05:09 Neut % (Auto) 69.7 % 02/03/22 05:09 Lymph % (Auto) 20.3 % 02/03/22 05:09 [place] % (Auto) 6.9 % 02/03/22 05:09 Eos % (Auto) 1.8 % 02/03/22 05:09 Baso % (Auto) 0.7 % 02/03/22 05:09 Neut # (Auto) 7.55 10^3/uL (1.8-7.7) 02/03/22 05:09 Lymph # (Auto) 2.2 10^3/uL (0.8-4.8) 02/03/22 05:09 [place] # (Auto) 0.8 10^3/uL (0.2-0.9) 02/03/22 05:09 Eos # (Auto) 0.2 10^3/uL (0.0-0.8) 02/03/22 05:09 Baso # (Auto) 0.1 10^3/uL (0.0-0.1) 02/03/22 05:09 Nucleated RBC % (auto) 0 % 02/03/22 05:09 Nucleated RBCs # 0.0 /100WBC 02/03/22 05:09 ESR 66 mm/hr (0-10) H 02/01/22 02:34 Sodium 136 mmol/L (136-145) 02/03/22 05:09 Potassium 4.0 mmol/L (3.5-5.1) 02/03/22 05:09 Chloride 101 mmol/L (98-107) 02/03/22 05:09 Carbon Dioxide 20 mmol/L (22-29) L 02/03/22 05:09 Anion Gap 19.0 (5-19) 02/03/22 05:09 BUN 11 mg/dL (6-20) 02/03/22 05:09 Creatinine 1.1 mg/dL (0.7-1.2) 02/03/22 05:09 GFR Calculation 73.4 mL/min (90-130) L 02/03/22 05:09 Glucose 155 mg/dL (65-115) H 02/03/22 05:09 POC Glucose 194 mg/dL (70-110) H 02/03/22 10:58 Calculated Osmolality 285 mOsm/kg (285-295) 02/03/22 05:09 Calcium 8.2 mg/dL (8.5-10.5) L 02/03/22 05:09 Total Bilirubin 0.5 mg/dL (0.15-1.2) 02/01/22 02:34 AST 8 U/L (0-40) 02/01/22 02:34 ALT 17 U/L (0-41) 02/01/22 02:34 Alkaline Phosphatase 98 IU/L (40-130) 02/01/22 02:34 C-Reactive Protein 176.2 mg/L (0.0-4.9) H 02/01/22 02:34 Total Protein 6.3 g/dL (6.6-8.7) L 02/01/22 02:34 Albumin 3.3 g/dL (3.5-5.2) L 02/01/22 02:34 Globulin 3.0 g/dL (1.3-4.6) 02/01/22 02:34 Procalcitonin 0.17 ng/mL (0-0.5) 02/01/22 02:34 Vancomycin Trough 17.5 ug/mL (10-15) H 02/02/22 15:42 Vitals Last Vital Signs Temp 99.1 F 02/03/22 11:56 Pulse 85 02/03/22 11:56 Resp 12 02/03/22 11:56 BP 142/81 02/03/22 11:56 Pulse Ox 98 02/03/22 11:56 Discharge Plan Discharge Patient Disposition: Home Condition: Stable Prescriptions: New Bactrim DS 800-160 mg tablet 1 tab PO BID 7 Days Qty: 14 0RF levofloxacin 750 mg tablet 750 mg PO DAILY 7 Days Qty: 7 0RF Pharbetol 500 mg tablet 500 mg PO Q6H PRN (Reason: pain) 7 Days Qty: 20 0RF insulin lispro 100 unit/mL insulin pen 8 unit SUBCUT TID Qty: 3 0RF Rx Instructions: with meal Continued Lantus Solostar U-100 Insulin 100 unit/mL (3 mL) Insulin Pen 35 unit SUBCUT BID 30 Days Qty: 3 1RF metoprolol tartrate 50 mg Tablet 50 mg PO BID 30 Days Qty: 60 0RF Eliquis 2.5 mg Tablet 2.5 mg PO BID 30 Days Qty: 60 0RF atorvastatin 20 mg Tablet 20 mg PO DAILY 30 Days Qty: 30 0RF aspirin 81 mg Tablet,Delayed Release (Dr/Ec) 81 mg PO DAILY Qty: 30 1RF Discharge Orders: Discharge Order (Routine); Ordered 02/03/22 Ordered By: Valentin Starks Discharge Diet: Diabetic Patient Instructions: Type 2 Diabetes, Diabetes and Diet, Sulfamethoxazole/Trimethoprim (By mouth), Phenobarbital (By mouth), Levofloxacin (By mouth), Acute Kidney Injury (DC) Activity Restrictions/Additional Instructions: Please call your PCP and make a follow up appointmnet once you get back to [place] Discharge Attestations Time Spent in Discharge Care*: less than 30 min Quality Metrics Clinical Quality Measures [ No reported AMI, CVA or VTE this stay] Coding Level of Care Code Acute g [facility] note Diagnoses Cellulitis L03.90 Puncture wound T14.8XXA Foot pain M79.673 Diabetes E11.9 SHELDON (acute kidney injury) N17.9 Hypercalcemia E83.52 Hypertension I10
[2022-02-03 14:20] VITALS: BP 142/81; PULSE 85; RESP 12; TEMP 37.3; O2SAT 98
== END 2022-02-03 14:20 | disposition home or self-care (01) | DRG 603 ==
LOC: ER 16:57 → MEDSURG 18:53
PROVIDERS: Admitting Provider Internal Medicine; Emergency Provider Emergency Medicine; Visit Provider Internal Medicine
DX: L03.031 Cellulitis of right toe (principal); N17.9 Acute kidney failure, unspecified; Z79.4 Long term (current) use of insulin; E83.52 Hypercalcemia; I10 Essential (primary) hypertension; Z79.82 Long term (current) use of aspirin; Z79.01 Long term (current) use of anticoagulants; Z86.718 Personal history of other venous thrombosis and embolism; Z89.422 Acquired absence of other left toe(s); S91.134A Puncture wound without foreign body of right lesser toe(s) without damage to nail, initial encounter; X58.XXXA Exposure to other specified factors, initial encounter; E11.65 Type 2 diabetes mellitus with hyperglycemia
CPT/HCPCS: 36415; 36416; 73590; 73620; 73702; 73718; 80048; 80053; 80202; 82962; 84145; 85025; 85651; 86140; 87040; 96365; 96367; 96372; 96375; 99285; C9113; G0378; J1170; J1650; J1815 ×2; J2270; J2543; J3370; J3490; J7030; J7050; Q9967

== ENCOUNTER 2022-02-21 20:38 | Inpatient (IN) | payer SELFPAY ==
[2022-02-21] VITALS (10 sets, daily range): BP systolic 107–144; BP diastolic 69–85; PULSE 112–130; RESP 13–25; TEMP 37.9; O2SAT 94–96; BMI 31.6
--- NOTE | 2022-02-21 21:04 | ECG_ITS ---
[facility] Test Date: 2022-02-21 Pat Name: Karel Sniha Department: Room: Gender: Male Rope Tier: : 1980 Requested By: Nedra Garcia Order Number: [id number] Rajeev MD: Otto Jensen M.D. Measurements Intervals [place] Rate: 125 P: 56 VA: 155 QRS: 47 QRSD: 86 T: 37 QT: 284 QTc: 410 Interpretive Statements SINUS TACHYCARDIA NONSPECIFIC T-WAVE ABNORMALITY No previous ECG available for comparison Electronically Signed On 02-22-2022 20:51:05 CDT by Otto Jensen M.D. [email or web address]
--- NOTE | 2022-02-21 21:04 | XRR_ITS ---
PROCEDURE INFORMATION: Exam: XR Chest Exam date and time: 02/21/2022 9:26 PM Age: 41 years old Clinical indication: Fever TECHNIQUE: Imaging protocol: XR of the chest. Views: 1 view. COMPARISON: No relevant prior studies available. FINDINGS: Lungs: Unremarkable. No consolidation. Pleural spaces: Unremarkable. No pleural effusion. No pneumothorax. Heart/Mediastinum: Unremarkable. No cardiomegaly. Bones/joints: Unremarkable. XR/XR chest 1V portable [id number] IMPRESSION: No acute findings.
--- NOTE | 2022-02-21 21:14 | XRR_ITS ---
PROCEDURE INFORMATION: Exam: XR Right Foot Exam date and time: 02/21/2022 9:26 PM Age: 41 years old Clinical indication: Pain; Right; Patient HX: Sore on RT foot TECHNIQUE: Imaging protocol: XR Right foot. Views: 3 or more views. COMPARISON: CT foot RT wo/w con [id number] 01/31/2022 4:41 PM FINDINGS: Bones/joints: Mild ossification/calcification over the Achilles tendon insertion on the posterior calcaneus consistent with mild enthesopathy. Soft tissues: Normal. XR/XR foot RT min 3V* [id number] IMPRESSION: No acute findings.
--- NOTE | 2022-02-21 21:27 | ED_ITS ---
HPI - Wound/Laceration General: Chief Complaint: Wound/Laceration Stated Complaint: sore on R foot Time Seen by Provider: 02/21/22 21:02 Source: patient Mode of arrival: ambulatory Limitations: no limitations History of Present Illness: 41-year-old male with a history of diabetes along with chronic wound to his right foot he is admitted here roughly a month ago was on IV antibiotics along with Levaquin states he finished his antibiotics but over the last week he has had increasing erythema and drainage and foul-smelling drainage from the wound. He states that he is also been febrile the day he has not followed up with him and since he left. Denies any pain. Associated symptoms: Reports fever(s); Denies chills, nausea or vomiting Review of Systems Const: Reports: fever(s); Denies: chills, body aches or change in appetite Eyes: Denies: blurry vision or eye discomfort ENMT: Denies: throat pain or dental pain Card: Denies: chest pain Resp: Denies: dyspnea GI: Denies: abdominal pain, nausea, vomiting or diarrhea : Denies: dysuria Musc: Reports: extremity pain; Denies: neck pain or back pain Skin/Breast: Denies: rash Neuro: Denies: headache(s) Psych: Denies: depression Terry/Lymph: Denies: easy bruising All/Imm: Denies: urticaria PFSH ED PFSH: Medical History (Updated 02/21/22 @ 22:37 by Gonzalo Robles MD) SHELDON (acute kidney injury) Amputated toe Cellulitis Diabetes Diabetes Foot pain Hypercalcemia Hypertension Puncture wound Surgical History (Updated 02/21/22 @ 22:37 by Gonzalo Robles MD) H/O toe surgery Social History Smoking and tobacco status: never smoked Alcohol intake: never Physical Exam Const: COMMON NORMALS: no acute distress and patient oriented x3 GENERAL APPEARANCE: ill appearing HENMT: COMMON NORMALS: normocephalic and atraumatic HEAD & SCALP: normocephalic and atraumatic Eye: COMMON NORMALS: Equal, round and reactive pupils present and EOMs intact bilaterally PUPIL: Yes Equal, round and reactive pupils present Neck/C-Spine: COMMON NORMALS: full ROM and supple Chest: COMMONS NORMALS: normal inspection of the chest and normal palpation of entire chest wall Resp: COMMON NORMALS: normal respiratory effort, No retractions, No use of accessory muscles and clear to auscultation bilaterally AUSCULTATION: clear to auscultation bilaterally Cardio: COMMON NORMALS: regular rate, regular rhythm and No murmurs present (Cardio) RATE: regular rate RHYTHM: regular rhythm GI: COMMON NORMALS: Normal to inspection, nondistended, normoactive bowel sounds present, Soft to palpation, non-tender and no masses PALPATION: Yes Soft to palpation Extremity: NARRATIVE EXTREMITY EXAM: Chronic wound to right foot with some drainage and erythema Neuro: COMMON NORMALS: patient oriented x3, moves all extremities and no focal motor deficits Psych: COMMON NORMALS: mental status grossly normal, Normal thought process present and cooperative THOUGHT PROCESS: Normal thought process present Skin: COMMON NORMALS: no rashes or lesions noted and no wounds GENERAL SKIN EXAM: no rashes or lesions noted Course Vital Signs: Vital signs: Vital Signs Temperature 100.2 F H 02/21/22 20:56 Pulse Rate 123 H 02/21/22 22:30 Respiratory Rate 21 H 02/21/22 22:30 Blood Pressure 107/75 02/21/22 22:30 Pulse Oximetry 96 02/21/22 22:30 MDM - Wound/Laceration Medical Decision Making Patient presents here with cellulitis to the right foot patient does have an elevated white count low-grade fever here as well. Blood pressure here has been stable patient started on IV antibiotics spoke to hospitalist will admit at this time. Lab Data : 02/21/22 21:28 02/21/22 21:28 Radiology Impressions Chest X-Ray 02/21/22 21:04 IMPRESSION: No acute findings. Foot X-Ray 02/21/22 21:14 IMPRESSION: No acute findings. Laboratory Results WBC 21.5 10^3/uL (4.0-10.0) H 02/21/22 21:28 RBC 5.44 10^6/uL (4.1-5.3) H 02/21/22 21:28 Hgb 14.0 g/dL (11.7-16.6) 02/21/22 21:28 Hct 45.0 % (42.0-52.0) 02/21/22 21:28 MCV 82.7 fl (80-94) 02/21/22 21: MCH 25.7 pg (28.0-34.0) L 02/21/22: MCHC 31.1 g/dL (30.0-36.0) 02/21/22: RDW 13.4 % (12.1-15.1) 02/21/22: Plt Count 457 10^3/cmm (130-400) H 02/21/22: MPV 10.2 fL (7.4-10.4) 02/21/22: Neut % (Auto) 82.2 % 02/21/22: Lymph % (Auto) 9.4 % 02/21/22: [place] % (Auto) 7.3 % 02/21/22: Eos % (Auto) 0.1 % 02/21/22: Baso % (Auto) 0.4 % 02/21/22: Neut # (Auto) 17.66 10^3/uL (1.8-7.7) H 02/21/22: Lymph # (Auto) 2.0 10^3/uL (0.8-4.8) 02/21/22: [place] # (Auto) 1.6 10^3/uL (0.2-0.9) H 02/21/22: Eos # (Auto) 0.0 10^3/uL (0.0-0.8) 02/21/22: Baso # (Auto) 0.1 10^3/uL (0.0-0.1) 02/21/22: Nucleated RBC % (auto) 0 % 02/21/22: Nucleated RBCs # 0.0 /100WBC 02/21/22: Sodium 130 mmol/L (136-145) L 02/21/22: Potassium 4.2 mmol/L (3.5-5.1) 02/21/22: Chloride 87 mmol/L (98-107) L 02/21/22: Carbon Dioxide 29 mmol/L (22-29) 02/21/22: Anion Gap 18.2 (5-19) 05/02/22 21:28 BUN 29 mg/dL (6-20) H 02/21/22 21:28 Creatinine 1.7 mg/dL (0.7-1.2) H 02/21/22 21: GFR Calculation 44.4 mL/min (90-130) L 02/21/22 21:28 Glucose 398 mg/dL (65-115) H 02/21/22 21: Calculated Osmolality 292 mOsm/kg (285-295) 02/21/22: Lactic Acid 2.5 mmol/L (0.5-2.2) H 02/21/22 21: Calcium 8.8 mg/dL (8.5-10.5) 02/21/22: Total Bilirubin 0.4 mg/dL (0.15-1.2) 02/21/22: AST 6 U/L (0-40) 02/21/22: ALT 8 U/L (0-41) 02/21/22: Alkaline Phosphatase 131 IU/L (40-130) H 02/21/22: Total Protein 8.0 g/dL (6.6-8.7) 02/21/22: Albumin 3.5 g/dL (3.5-5.2) 02/21/22: Globulin 4.5 g/dL (1.3-4.6) 02/21/22 21: EKG Data EKG 1: I personally reviewed and interpreted this EKG as follows: EKG interpretation date: 02/21/22 EKG interpretation time: 21:48 Interpretation: sinus tach hr [address] or t wave abnormalities qrs 86 qtc 358 Critical Care Time Critical Care Time: Critical Care Time: Yes Total Critical Care Time: 38 Attestation: The high probability of a clinically significant, sudden or life threatening deterioration of the patient's extremity system(s) required my full and direct attention, intervention and personal management. The critical care time is as shown. This time is in addition to time spent performing any reported procedures but includes the following: [x] Data and vital sign review and interpretation [x] Patient assessment, examination and intervention [x] Documentation [x] Medication orders and management Discharge Plan Discharge Patient Disposition: Admitted As Inpatient Clinical Impression: Cellulitis of foot, right Condition: Stable Coding Level of Care Code ED Ending Machine Operator for Chg Fwd Exam Comprehensive
[2022-02-21 21:35] LABS: Basophils # 0.1 10^3/uL (0.0-0.1); Basophils % 0.4 %; Eosinophils % 0.1 %; Lymphocytes % 9.4 %; Mean Corpuscular HGB Conc 31.1 g/dL (30.0-36.0); Mean Corpuscular Hemoglobin 25.7 pg (28.0-34.0); Mean Corpuscular Volume 82.7 fl (80-94); Mean Platelet Volume 10.2 fL (7.4-10.4); Monocytes # 1.6 10^3/uL (0.2-0.9); Monocytes % 7.3 %; Neutrophils # 17.66 10^3/uL (1.8-7.7); Neutrophils % 82.2 %; Nucleated Red Blood Cells % 0 %; Platelet Count 457 10^3/cmm (130-400); Red Blood Count 5.44 10^6/uL (4.1-5.3); Red Cell Distribution Width 13.4 % (12.1-15.1); White Blood Count 21.5 10^3/uL (4.0-10.0)
[2022-02-21 21:51] LABS: Lactic Sepsis W/Reflex 2.5 mmol/L (0.5-2.2)
[2022-02-21] MEDS: vancomycin 1,000 MG in sodium chloride 0.9% 250 ML 250 MG IV (21:51)
[2022-02-21 21:52] LABS: Alanine Aminotransferase 8 U/L (0-41); Albumin Level 3.5 g/dL (3.5-5.2); Alkaline Phosphatase 131 IU/L (40-130); Anion Gap 18.2 (5-19); Aspartate Amino Transferase 6 U/L (0-40); Blood Urea Nitrogen 29 mg/dL (6-20); Calcium 8.8 mg/dL (8.5-10.5); Carbon Dioxide 29 mmol/L (22-29); Chloride 87 mmol/L (98-107); Globulin 4.5 g/dL (1.3-4.6); Glomerular Filtration Rate 44.4 mL/min (90-130); Glucose 398 mg/dL (65-115); Osmolality Calculated 292 mOsm/kg (285-295); Potassium 4.2 mmol/L (3.5-5.1); Sodium 130 mmol/L (136-145); Total Bilirubin 0.4 mg/dL (0.15-1.2)
--- NOTE | 2022-02-21 22:34 | PM.HP ---
Providers/Chief Complaint Chief Complaint: sore on R foot History of Present Illness Karel Sinha is a 41 year old male who is a resident of [place], carries history of diabetes, hypertension, DVT, left toe amputation, was recently discharged on 02/03 after management of right foot diabetic ulcer(puncture wound beginning of January) CT scan did not show any signs of subcutaneous emphysema, no evidence osteomyelitis during that hospitalization noted, cultures remain negative, he was discharged on Bactrim and Lovaqin presented today with chief complaint of recurrent nausea vomiting, worsening of pain and drainage from right foot wound. Patient is stating that he finishes 1 week antibiotic regimen, he was compliant with his medications until Monday, he has been experiencing recurrent emesis. Initially vomitus was bilious however it has become dark and he has been experiencing substernal sharp pain. In total he has experienced 10-12 episodes of emesis. His last Eliquis dose was on Monday. He has not taken his insulin since Monday as well. He started noticing drainage from his plantar right foot ulcer, it is associated with swelling and pain at rest. This pain gets worse when he puts pressure on that foot. In the ER he was diagnosed with sepsis related to nonhealing diabetic foot ulcer, there is purulent drainage from plantar surface of right foot. Foot x-ray has not shown signs of osteomyelitis I requested MRI without contrast, I have reduced the dose of insulin as his creatinine has worsened, he has hyperglycemia, he is febrile tachycardic He has received IV fluids and vancomycin No signs of septic shock Patient is planning to go back to [place] within a month but willing to do stay for the appropriate medical treatment or surgical intervention Review of Systems Const: Reports: fever(s), body aches and fatigue Eyes: Denies: change in vision ENMT: Denies: throat pain Card: Denies: chest pain Resp: Denies: dyspnea GI: Reports: nausea and vomiting; Denies: abdominal pain : Denies: flank pain Musc: Reports: extremity pain, extremity swelling, joint pain, joint warmth and muscle cramps Skin/Breast: Reports: erythema, skin tenderness, skin swelling, sores, new lesions, changing lesions, non-healing lesions and changes in skin color Neuro: Denies: headache(s) Psych: Denies: anxiety Endo: Denies: polyuria Terry/Lymph: Denies: easy bruising All/Imm: Denies: urticaria Medications/Allergies Home Medications Medication Instructions Recorded Confirmed Last Taken Type apixaban 2.5 mg tablet (Eliquis) 2.5 mg PO BID 30 Days #60 tab 02/03/22 Unknown Rx aspirin 81 mg tablet,delayed 81 mg PO DAILY #30 tab 02/03/22 Unknown Rx release atorvastatin 20 mg tablet 20 mg PO DAILY 30 Days #30 tab 02/03/22 Unknown Rx insulin glargine 100 unit/mL (3 35 unit (0.35 mL) SUBCUT BID 30 02/03/22 Unknown Rx mL) subcutaneous pen (Lantus Days #3 ml Solostar U-100 Insulin) insulin lispro 100 unit/mL 8 unit (0.08 mL) SUBCUT TID #3 ml 02/03/22 Unknown Rx subcutaneous pen metoprolol tartrate 50 mg tablet 50 mg PO BID 30 Days #60 tab 02/03/22 Unknown Rx Allergies Allergy/AdvReac Type Severity Reaction Status Date / Time No Known Allergies Allergy Verified 01/31/22 16:48 PFSH Acute PFSH: Medical History SHELDON (acute kidney injury) Amputated toe Cellulitis Diabetes Diabetes Foot pain Hypercalcemia Hypertension Puncture wound Surgical History H/O toe surgery Family History Other Diabetes Social History Smoking and tobacco status: never smoked Alcohol intake: never Vitals/I&O/Wt Last Vital Signs Temp 100.2 F H 02/21/22 20:56 Pulse 130 H 02/21/22 20:56 Resp 24 H 02/21/22 20:56 BP 136/85 02/21/22 20:56 Pulse Ox 96 02/21/22 20:56 Weight last 48 hrs Weight 108.862 kg Physical Exam Narrative: Pleasant male who is laying comfortably in his bed No active signs of meningitis NIH 0 Nonfocal neuro exam S1, S2 sinus tachycardia Clinically looks dehydrated Poor dental hygiene Mild tenderness on deep palpation of abdomen Otherwise abdomen is soft no signs of peritonitis guarding or rigidity Nonfocal neuro exam No audible stridor or wheezing Saturating well on room air Right foot plantar ulcer with purulent drainage, swelling extending up to his ankle, lateral surface of right foot has ischemic ulcer changes Data : 02/21/22 21:28 02/21/22 21:28 Micro: Microbiology 02/21/22 21:20 Blood Culture - Preliminary Blood SPECIMEN COLLECTED 02/21/22 21:26 Blood Culture - Preliminary Blood SPECIMEN COLLECTED A&P Assessment and plan (1) Cellulitis of foot, right: Status: Acute Plan Nonhealing diabetic foot ulcer Sepsis related to purulent cellulitis of right foot No signs of septic shock Purulent cellulitis We will request ESR and CRP X-ray which is more specific for osteolytic changes has not shown osteomyelitis Start renally dosed vancomycin and Zosyn Start IV fluids Will request MRI to rule out osteomyelitis, if it shows significant changes he will need general surgery versus podiatry consultation for debridement I will hold his Eliquis, last dose was on Monday Will request arterial Doppler as patient is complaining of pain at rest and there is ischemic changes on the lateral border of right foot I will give him first dose of therapeutic Lovenox now, in case of further worsening of creatinine he might need heparin for ischemic ulcer changes, History of amputation of left toe Patient wants to go back to [place] next month, his son is graduating on 03 March SHELDON: He has taken Bactrim, severe dehydration related to 12 episodes of emesis, I will reduce the dose of Lantus, renally dose antibiotics keep him on IV fluids Sepsis related to: Cellulitis Septic bolus Start antibiotics Repeat lactic acid in the morning Dehydration related to emesis: Repeat lactic acid in the morning continue IV fluids Poorly controlled type 2 diabetes Continue scheduled insulin however I have reduced the dosage because of worsening of creatinine Sinus tachycardia is compensatory to dehydration He has not taken metoprolol as well since Monday Consistent carb diet Full code Attestations Medical Necessity Statement*: Worsening of nonhealing right foot ulcer, anticipating more than 2 midnights in the hospital currently he is septic Time Spent in Patient Care: 40mins Coding Level of Care Code Acute 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
[2022-02-21] MEDS: sodium chloride 0.9% 500 ML 999 ML IV (22:43)
[2022-02-21] MEDS: morphine 4 mg/mL SDV 1 mL IVP (22:43)
[2022-02-21 22:55] LABS: Erythrocyte Sedimentation Rate 57 mm/hr (0-10)
[2022-02-21 23:20] LABS: Reflex Lactate Order REFLEX LACTIC ORDERD
[2022-02-22] VITALS (27 sets, daily range): BP systolic 106–140; BP diastolic 59–83; PULSE 72–112; RESP 16–20; TEMP 36.3–38.3; O2SAT 92–97; BMI 34.8
--- NOTE | 2022-02-22 00:13 | USCV_ITS ---
Karel Sinha Age: 41 Gender: M : 1980 Exam Date: 02/22/2022 00:32 Ordering Phys: Gonzalo Robles MD Technologist: CKKristian [place]am Location[place] [facility] [place]ication: H/O LEFT BYPASS GRAFT Risk Factors: Previous Vascular Surgery: RIGHT LEFT Waveform Velocity (cm/s) Velocity (cm/s) Waveform Triphasic 165.5 Iliac Prox 154.7 Triphasic Triphasic 169.1 Iliac Mid 231.9 Triphasic Triphasic 194.3 Iliac Distal 166.6 Triphasic Triphasic 163.7 DISPATCH MACHINE RUNNER 175.8 Triphasic Triphasic 140.3 SFA Prox N/A Monophasic 73.8 SFA Mid N/A Monophasic 104.3 SFA Dist N/A Monophasic 92.2 POP 40.4 Monophasic Monophasic 72.7 NETWORK RELAY TESTER 18.6 Monophasic Monophasic 46.3 DPA 29.5 Monophasic 0.7 RANDAL 0.8 FINDINGS LEFT FEM-NETWORK RELAY TESTER GRAFT APPEARS PATENT. NO FLOW SEEN IN [place] SFA PROX-DIST Mild to to moderate diffuse plaques in the iliac and common femoral artery No Doppler flow signals in the algaaciq superficial femoral artery. Patent Vincent popliteal bypass graft on the left side Monophasic and continuous Doppler waveforms in the dorsalis pedis and posterior tibial artery on the right side CONCLUSIONS 1. Patent femoropopliteal bypass graft in the left side with a resting RANDAL of 0.8. 2. 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 Abnormal resting RANDAL 0.7 on the right side, suggesting moderate peripheral artery disease. 4. Abnormal Doppler waveforms in the infrapopliteal vessels on the right side, suggesting collateral filling No similar previous studies are available for comparison Dr Natalie Harden MD [facility] (Electronically Signed) Final Date: 22 Feb 2022 14:43 S
--- NOTE | 2022-02-22 00:13 | MR_ITS ---
WS: [id number] MRI RIGHT FOOT with and without CONTRAST. COMPARISON: 02/01/2022 Multiplanar, multisequence imaging is performed with and without contrast. Significant increased amount of T2 signal consistent with edema involving the third, fourth and fifth metatarsals. Increased signal involves the distal third of the third metatarsal, the entire fourth m etatarsal and nearly the entire fifth metatarsal. There is a significant amount of increased soft tis pham edema surrounding the metatarsals. On the postcontrast sequences there is enhancement throughout the metatarsals in in same locations as the marrow edema. The extensive soft tissue thickening surrounding the metatarsals and the third, fo urth and fifth toes does not significantly enhance. The ulceration tract along the plantar surface of the foot is nonenhancing. There is no focal fluid collection. A small amount of edema surrounds the fourth metatarsal head. There is a more focal soft tissue thickening and edema surrounding the distal fifth metatarsal and metatarsal head extending over the toes. This also does not enhance. There has been a significant progression of abnormalities since the prior study of 02/01/2022 which was done wit hout IV contrast. Osteomyelitis with destruction of the bone is most significant involving the fourth metatarsal head. There is abnormal signal within the proximal phalanx of fourth and fifth toes which does not enhance. May be from treated osteomyelitis or edema. Seen best on the coronal T2 fat saturated sequences are fluid collections with variable signal but pr edominantly increased signal surrounding the metatarsal heads and intertarsal at the third and fourth , fourth and fifth metatarsal heads. I believe this is probably synovial fluid and synovitis although there is no enhancement on the postcontrast sequence. MR/MR foot RT wo/w con [id number] IMPRESSION: 1. Significant progression of adverse changes within the RIGHT foot since the prior study of 02/01/2022 which was performed without IV contrast. 2. There is now osteomyelitis involving portions of the third, fourth and fift h metatarsals. Most significant destruction involving the fourth metatarsal hea d. 3. The extensive soft tissue thickening and inflammatory changes surrounding t he distal metatarsals and the proximal toes and the ulceration tract along the plantar surface of the foot but no enhancement. No focal abscess. 4. Extensive soft tissue edema surrounding the foot has progressed. 5. Small fluid collections intertarsal at the third and fourth, fourth and fif th metatarsal heads. No enhancement. Most consistent with synovitis and may be treated synovitis/cellulitis as there is no enhancement.
[2022-02-22] MEDS: enoxaparin 120 mg/0.8 mL Syringe 110 MG SUBCUT (00:37)
[2022-02-22] MEDS: lidocaine 2% viscous 15 ML, aluminum-mag hydrox-simethicon 30 ML, sucralfate oral liq 1 GM PO (00:37)
[2022-02-22] MEDS: sodium chloride 0.9% 1,000 ML 75 ML IV ×2 (00:38→23:28)
[2022-02-22 01:07] LABS: Lactic Acid level (Lactate) 1.4 mmol/L (0.5-2.2)
[2022-02-22] MEDS: piperacillin-tazobactam 3.375 GM in sodium chloride 0.9% (plus) 50 ML IV ×3 (01:49→18:07)
[2022-02-22] MEDS: morphine IR 15 mg Tablet PO ×2 (05:12→23:22)
[2022-02-22 05:40] LABS: Basophils # 0.1 10^3/uL (0.0-0.1); Basophils % 0.6 %; Eosinophils % 0.2 %; Hematocrit 39.7 % (42.0-52.0); Hemoglobin 12.3 g/dL (11.7-16.6); Lymphocytes # 2.4 10^3/uL (0.8-4.8); Lymphocytes % 12.4 %; Mean Corpuscular Hemoglobin 25.7 pg (28.0-34.0); Mean Corpuscular Volume 83.1 fl (80-94); Mean Platelet Volume 10.8 fL (7.4-10.4); Monocytes # 1.5 10^3/uL (0.2-0.9); Monocytes % 7.5 %; Neutrophils # 15.52 10^3/uL (1.8-7.7); Neutrophils % 78.5 %; Nucleated Red Blood Cells % 0 %; Platelet Count 400 10^3/cmm (130-400); Red Blood Count 4.78 10^6/uL (4.1-5.3); Red Cell Distribution Width 13.4 % (12.1-15.1); White Blood Count 19.7 10^3/uL (4.0-10.0)
[2022-02-22 05:56] LABS: Lactate (Lactic Acid level) 1.3 mmol/L (0.5-2.2)
[2022-02-22 06:00] LABS: Anion Gap 14.8 (5-19); Blood Urea Nitrogen 29 mg/dL (6-20); C Reactive Protein 348.9 mg/L (0.0-4.9); Calcium 7.9 mg/dL (8.5-10.5); Carbon Dioxide 28 mmol/L (22-29); Chloride 89 mmol/L (98-107); Glomerular Filtration Rate 51.3 mL/min (90-130); Glucose 457 mg/dL (65-115); Osmolality Calculated 292 mOsm/kg (285-295); Potassium 3.8 mmol/L (3.5-5.1); Sodium 128 mmol/L (136-145)
[2022-02-22 06:03] LABS: Creatinine Clr Calc Pharmacy 86.9819
--- NOTE | 2022-02-22 06:23 | PC.NURSE ---
Patient's room changed to 251-2
[2022-02-22 07:26] LABS: Glucose Point of Care 400 mg/dL (70-110)
[2022-02-22] MEDS: insulin lispro 100 unit/1 mL SUBCUT ×4 (08:00→21:10)
[2022-02-22] MEDS: sennosides-docusate Tablet 1 TAB PO (08:05)
[2022-02-22] MEDS: pantoprazole DR 40 mg Tablet PO (08:05)
[2022-02-22] MEDS: atorvastatin 40 mg Tablet 20 MG PO (08:05)
[2022-02-22] MEDS: aspirin 81 mg EC Tablet PO (08:05)
[2022-02-22] MEDS: metoprolol tartrate 50 mg Tablet PO ×2 (08:05→18:07)
[2022-02-22] MEDS: insulin glargine 100 units/1 mL 25 UNIT SUBCUT ×2 (08:07→21:10)
--- NOTE | 2022-02-22 09:59 | PM.PN ---
Subjective Subjective: Patient seen this morning. No acute events overnight. He was admitted overnight for right plantar diabetic foot ulcer. is present at bedside. Patient is awaiting MRI this morning. Low-grade fever overnight present. Vitals/I&O/Wt Last Vital Signs Temp 99.7 F H 02/22/22 08:00 Pulse 104 H 02/22/22 08:00 Resp 17 02/22/22 08:00 BP 126/75 02/22/22 08:00 Pulse Ox 95 02/22/22 08:00 02/21/22 02/22/22 02/22/22 22:59 06:59 14:59 Intake Total 1280 / 1280 Output Total 775 / 775 Balance 505 / 505 Weight last 48 hrs Weight 119.794 kg Weight 108.862 kg Physical Exam Narrative: General: Alert oriented x3, patient seen laying in bed appearing comfortable. at bedside. HEENT: Normocephalic, atraumatic, EOMI, breathing normally. Cardio: Regular rate rhythm, normal S1-S2, Respiratory: Good bilateral air entry, no wheezes no rhonchi appreciated GI: Abdomen soft, nontender, nondistended, bowel sounds + Behavior: Appropriate and cooperative Extremities: Unable to find pulse on right foot due to extensive edema. Right foot has significant swelling all the way up to ankle. Right foot fifth toe has necrotic changes. Right foot plantar ulcer has significant purulent drainage, surrounding erythema present. Compared to picture from history physical document it appears slightly worse today. Data : 02/22/22 05:00 02/22/22 05:00 Micro: Microbiology 02/21/22 21:20 Blood Culture - Preliminary Blood SPECIMEN COLLECTED 02/21/22 21:26 Blood Culture - Preliminary Blood SPECIMEN COLLECTED A&P Assessment and plan (1) Cellulitis of foot, right: Status: Acute (2) Hyponatremia: Status: Acute (3) Sepsis: Status: Acute (4) Leukocytosis: Status: Acute (5) Diabetes: Status: Acute Plan #Sepsis secondary to cellulitis and nonhealing diabetic foot ulcer right plantar surface #Mild SHELDON on CKD #Poorly controlled type 2 diabetes mellitus complicated by hyperglycemia #Dehydration #History of amputated toe #Hyponatremia -ESR elevated and CRP elevated. ? X-ray did not show any osteomyelitis changes ? Blood cultures obtained in ER, pending. ? Continue vancomycin and Zosyn ? Continue IV fluids -SHELDON most likely secondary to recent Bactrim use. Creatinine is improving. ? MRI to be done today to rule out osteomyelitis. ProHance contrast to be used. lead based paint technician stated that patient meets criteria so he can safely have contrast. We will consult general surgery for debridement. ? Eliquis is on hold. Patient's last dose was on Monday. ? Arterial Dopplers ordered. Report pending. -Patient has not taken his insulin at home for the last couple of days. He has been started on Lantus 25 twice daily here. He also takes 8 units lispro Premeal. I will put on high-dose intensity sliding scale. - Check urine sodium, Full code Attestations Medical Necessity Statement*: > 72 hour stay for management of above Coding Level of Care Code Acute Foundry Engineer for g [facility] Diagnoses Cellulitis of foot, right L03.115 Hyponatremia E87.1 Sepsis A41.9 Leukocytosis D72.829 Diabetes E11.9
--- NOTE | 2022-02-22 10:30 | PM.CONSULT ---
Providers/Reason For Consult Consulting Physician/Specialty*: Chad Paredes MD Reason for Consult*: Diabetic foot infection Requesting Physician: Dr. Lewis Attending Physician: Amarilys Lewis MD History of Present Illness History of Present Illness Mr. Karel Sinha is a pleasant 41 year old male presents with worsening right diabetic foot infection and about 2 weeks ago patient did encounter some sort of infection was admitted to the hospitalist service and was treated conservatively and got discharged home below the previous images that were done. CT scan of the right lower extremity 01/31/22 Soft tissue swelling around the 1st digit. Osseous structures are intact without fracture or irregular osseous erosions. No subcutaneous emphysema. Please note the distal most tuft of the 1st digit is excluded from the field of view. This, however, had a normal appearance on corresponding radiographs. CT/CT foot RT wo/w con [id number] IMPRESSION: Negative for subcutaneous emphysema. No evidence of osteomyelitis. Soft tissue swelling of the 1st digit. ? MRI of the same foot: Right side 02/01/2022 1.? Very superficial ulceration noted along the plantar surface of the fourth metatarsal head. 2.? Small amount of fluid surrounding the fourth metatarsal head and soft tissue edema. Consistent with synovitis. No signal within the marrow to suggest osteomyelitis on this unenhanced exam. Foot x-ray right side 02/21/2022 Bones/joints: Mild ossification/calcification over the Achilles tendon insertion on the posterior calcaneus consistent with mild enthesopathy. Soft tissues: Normal. Patient was placed on oral antimicrobial therapy upon discharge and seems that he failed medical management and was readmitted to the hospitalist service where MRI and ultrasound were pending he had an x-ray that was done of the right foot without significant changes. Patient clinically developed cellulitis of the dorsum of the foot with discharging sinus on the plantar aspect and changes of the right fifth toe Patient has a leukocytosis of 19.7, serum creatinine 1.5 and a glucose of 457. Lactic acid of 2.5. Podiatry service is not available and general surgery was consulted for further management Review of Systems General: Reports: 10 or more systems reviewed and unremarkable except in HPI and below Medications/Allergies Home Medications Medication Instructions Recorded Confirmed Last Taken Type apixaban 2.5 mg tablet (Eliquis) 2.5 mg PO BID 30 Days #60 tab 02/03/22 02/22/22 Unknown Rx insulin glargine 100 unit/mL (3 35 unit (0.35 mL) SUBCUT BID 30 02/03/22 02/22/22 Unknown Rx mL) subcutaneous pen (Lantus Days #3 ml Solostar U-100 Insulin) insulin lispro 100 unit/mL 8 unit (0.08 mL) SUBCUT TID #3 ml 02/03/22 02/22/22 Unknown Rx subcutaneous pen metoprolol tartrate 50 mg tablet 50 mg PO BID 30 Days #60 tab 02/03/22 02/22/22 Unknown Rx acetaminophen 500 mg tablet 1,000 mg PO Q6H PRN 02/22/22 02/22/22 02/21/22 History aspirin 81 mg tablet,delayed 81 mg PO QAM 02/22/22 02/22/22 Unknown History release atorvastatin 20 mg tablet 20 mg PO BEDTIME 02/22/22 02/22/22 Unknown History Allergies Allergy/AdvReac Type Severity Reaction Status Date / Time No Known Allergies Allergy Verified 02/22/22 13:51 Current Medications Generic Name Dose Route Start Last Admin Trade Name Freq PRN Reason Stop Dose Admin Aspirin 81 mg 02/22/22 09:00 02/22/22 08:05 Aspirin 81 Mg Ec Tablet PO 81 mg DAILY URSULA Administration Atorvastatin Calcium 20 mg 02/22/22 09:00 02/22/22 08:05 Atorvastatin 40 Mg Tablet PO 20 mg DAILY URSULA Administration Sodium Chloride 1,000 mls @ 75 mls/hr 02/22/22 00:13 02/22/22 00:38 Sodium Chloride 0.9% IV 75 mls/hr .[id number] URSULA Administration Piperacillin Sod/Tazobactam 50 mls @ 12.5 mls/hr 02/22/22 01:00 02/22/22 08:08 Sod 3.375 gm/ Sodium Chloride IV 12.5 mls/hr Q8H URSULA Administration Protocol Insulin Human Lispro 0 unit 02/22/22 08:00 02/22/22 08:00 Insulin Lispro 100 Unit/1 Ml SUBCUT 16 unit WM&BEDTIME URSULA Administration Protocol Metoprolol Tartrate 50 mg 02/22/22 09:00 02/22/22 08:05 Metoprolol Tartrate 50 Mg Tablet PO 50 mg BID URSULA Administration Morphine Sulfate 15 mg 02/22/22 00:13 02/22/22 05:12 Morphine Ir 15 Mg Tablet PO 15 mg Q6H PRN Administration pAIN Pantoprazole Sodium 40 mg 02/22/22 09:00 02/22/22 08:[address] 40 Mg Tablet PO 40 mg DAILY URSULA Administration Senna/Docusate Sodium 1 tab 02/22/22 09:00 02/22/22 08:05 Sennosides-Docusate Tablet PO 1 tab DAILY URSULA Administration PFSH Acute PFSH: Medical History SHELDON (acute kidney injury) Amputated toe Cellulitis Diabetes Diabetes Foot pain Hypercalcemia Hypertension Puncture wound Surgical History H/O toe surgery Family History Other Diabetes Social History Smoking and tobacco status: never smoked Alcohol intake: never Vitals/I&O/Wt Last Vital Signs Temp 99.7 F H 02/22/22 08:00 Pulse 104 H 02/22/22 08:00 Resp 17 02/22/22 08:00 BP 126/75 02/22/22 08:00 Pulse Ox 95 02/22/22 08:00 02/21/22 02/22/22 02/22/22 22:59 06:59 14:59 Intake Total 1280 / 1280 Output Total 775 / 775 Balance 505 / 505 Weight last 48 hrs Weight 240 lb Weight 264 lb 1.6 oz Weight 240 lb Physical Exam Const: COMMON NORMALS: patient oriented x3 GENERAL APPEARANCE: cooperative and in distress ORIENTATION/CONSCIOUSNESS: Yes awake, Yes oriented to person, Yes oriented to place and Yes oriented to time HENMT: COMMON NORMALS: normocephalic HEAD & SCALP: normocephalic Eye: COMMON NORMALS: Equal, round and reactive pupils present and no scleral icterus PUPIL: Yes Equal, round and reactive pupils present Lymph: LYMPHATIC: no lymphadenopathy noted Chest: COMMONS NORMALS: normal inspection of the chest Resp: COMMON NORMALS: normal respiratory effort and clear to auscultation bilaterally AUSCULTATION: clear to auscultation bilaterally Cardio: COMMON NORMALS: S1 normal heart sound present and S2 normal heart sound present; negative for No murmurs present (Cardio) HEART SOUNDS: S1 normal heart sound present and S2 normal heart sound present GI: COMMON NORMALS: Soft to palpation; negative for No hepatosplenomegaly present INSPECTION: Yes normal to inspection PALPATION: Yes Soft to palpation, No Firmness to palpation present (GI), No Tenderness to palpation present (GI), No Guarding due to palpation present (GI), No Rigid due to palpation and No No hepatosplenomegaly present Extremity: EXTREMITY IMAGE (FRONT): 1. Right dorsal foot cellulitis with edema and plantar sinus discharging pus and necrotic changes of soft tissues of the right fifth toe. Difficulty in palpating right dorsalis pedis and tibialis posterior artery Neuro: COMMON NORMALS: patient oriented x3 SENSORIUM/ORIENTATION: Yes oriented to person, Yes oriented to place and Yes oriented to time Psych: COMMON NORMALS: mental status grossly normal Skin: COMMON NORMALS: no rashes or lesions noted GENERAL SKIN EXAM: no rashes or lesions noted Data : 02/22/22 05:00 02/22/22 05:00 Micro: Microbiology 02/21/22 21:20 Blood Culture - Preliminary Blood SPECIMEN COLLECTED 02/21/22 21:26 Blood Culture - Preliminary Blood SPECIMEN COLLECTED A&P Assessment and plan (1) Diabetic foot infection: After thorough history physical examination reviewing the chart and images with my personal interpretation, seems that there is a deeply seated abscess and there might be a component of osteomyelitis. Yet the patient will require urgent incision and drainage of the right foot abscess and will follow on the official reads of the MRI. We will plan to obtain cultures and sensitivities Patient was educated as well as his spouse about the potential future surgical intervention and amputee knowing the fact that the patient previous amputee of the foot toes. Indications, risks, benefits and alternatives all discussed with the patient and he did agree to proceed accordingly. Informed consent per chart Assurance and education All questions have been answered and all concerns have been addressed to patient's satisfaction. Status: Acute Consult Attestations Medical Necessity Statement: Per admitting service Coding Level of Care Code Acute Gear Hobber Set Up Operator for [facility] Diagnoses Diabetic foot infection E11.628; L08.9
--- NOTE | 2022-02-22 14:00 | PC.NURSE ---
Patient leaving floor for preop
--- NOTE | 2022-02-22 14:08 | ANES.PREANE2 ---
Pre-Anesthetic Assessment Height/Weight: Height 1.85 m Weight 108.862 kg Temp Pulse Resp BP Pulse Ox 99.7 F H 104 H 17 126/75 95 02/22/22 08:00 02/22/22 08:00 02/22/22 08:00 02/22/22 08:00 02/22/22 08:00 Operation Date: 02/22/22 15:00 Proposed Procedures p Incision And Drainage foot(Right) - Chad Paredes MD Familial anesthetic complications: None Was Beta Darnell taken within 24 hours: Yes Was Clonidine taken within 24 hours: N/A Last intake: > 8 hrs Social Tobacco and No alcohol Exam alert, oriented x 3, clear to auscultation bilaterally and regular rate & rhythm Airway Mallampati: Class II Dentition: other (multiple missing) CV/HEM Hypertension Metabolic Diabetes Mellitus Anesthetic Plan ASA status: 3 Anesthesia: Choice Risk of > 500 ml blood loss (7ml/kg in children): No Medications/Allergies Home Medications Medication Instructions Recorded Confirmed Last Taken Type apixaban 2.5 mg tablet (Eliquis) 2.5 mg PO BID 30 Days #60 tab 02/03/22 02/22/22 Unknown Rx insulin glargine 100 unit/mL (3 35 unit (0.35 mL) SUBCUT BID 30 02/03/22 02/22/22 Unknown Rx mL) subcutaneous pen (Lantus Days #3 ml Solostar U-100 Insulin) insulin lispro 100 unit/mL 8 unit (0.08 mL) SUBCUT TID #3 ml 02/03/22 02/22/22 Unknown Rx subcutaneous pen metoprolol tartrate 50 mg tablet 50 mg PO BID 30 Days #60 tab 02/03/22 02/22/22 Unknown Rx acetaminophen 500 mg tablet 1,000 mg PO Q6H PRN 02/22/22 02/22/22 02/21/22 History aspirin 81 mg tablet,delayed 81 mg PO QAM 02/22/22 02/22/22 Unknown History release atorvastatin 20 mg tablet 20 mg PO BEDTIME 02/22/22 02/22/22 Unknown History Allergies Allergy/AdvReac Type Severity Reaction Status Date / Time No Known Allergies Allergy Verified 02/22/22 13:51 Current Medications Generic Name Dose Route Start Last Admin Trade Name Freq PRN Reason Stop Dose Admin Aspirin 81 mg 02/22/22 09:00 02/22/22 08:05 Aspirin 81 Mg Ec Tablet PO 81 mg DAILY URSULA Administration Atorvastatin Calcium 20 mg 02/22/22 09:00 02/22/22 08:05 Atorvastatin 40 Mg Tablet PO 20 mg DAILY URSULA Administration Sodium Chloride 1,000 mls @ 75 mls/hr 02/22/22 00:13 02/22/22 00:38 Sodium Chloride 0.9% IV 75 mls/hr .[id number] URSULA Administration Piperacillin Sod/Tazobactam 50 mls @ 12.5 mls/hr 02/22/22 01:00 02/22/22 13:53 Sod 3.375 gm/ Sodium Chloride IV Infused Q8H URSULA Infusion Protocol Insulin Human Lispro 0 unit 02/22/22 08:00 02/22/22 12:00 Insulin Lispro 100 Unit/1 Ml SUBCUT Not Given WM&BEDTIME URSULA Protocol Insulin Human Lispro 8 unit 02/22/22 15:00 02/22/22 13:46 Insulin Lispro 100 Unit/1 Ml SUBCUT Not Given TID URSULA Metoprolol Tartrate 50 mg 02/22/22 09:00 02/22/22 08:05 Metoprolol Tartrate 50 Mg Tablet PO 50 mg BID URSULA Administration Morphine Sulfate 15 mg 02/22/22 00:13 02/22/22 05:12 Morphine Ir 15 Mg Tablet PO 15 mg Q6H PRN Administration pAIN Pantoprazole Sodium 40 mg 02/22/22 09:00 02/22/22 08:[address] 40 Mg Tablet PO 40 mg DAILY URSULA Administration Senna/Docusate Sodium 1 tab 02/22/22 09:00 02/22/22 08:05 Sennosides-Docusate Tablet PO 1 tab DAILY URSULA Administration PFSH Anesthesia Medical History SHELDON (acute kidney injury) Amputated toe Cellulitis Diabetes Diabetes Foot pain Hypercalcemia Hypertension Puncture wound Surgical History H/O toe surgery Family History Other Diabetes Social History Smoking and tobacco status: never smoked Alcohol intake: never Data Anesthesia : 02/22/22 05:00 02/22/22 05:00 Short CBC 02/21/22 02/22/22 Range/Units 21:28 05:00 WBC 21.5 H 19.7 H (4.0-10.0) 10^3/uL Hgb 14.0 12.3 (11.7-16.6) g/dL Hct 45.0 39.7 L (42.0-52.0) % MCV 82.7 83.1 (80-94) fl Plt Count 457 H 400 (130-400) 10^3/cmm Neut % (Auto) 82.2 78.5 % Neut # (Auto) 17.66 H 15.52 H (1.8-7.7) 10^3/uL BMP 02/21/22 02/22/22 21:28 05:00 Sodium 130 L 128 L Potassium 4.2 3.8 Chloride 87 L 89 L Carbon Dioxide 29 28 BUN 29 H 29 H Creatinine 1.7 H 1.5 H Glucose 398 H 457 H Calcium 8.8 7.9 L Liver Function 02/21/22 Range/Units 21:28 Total Bilirubin 0.4 (0.15-1.2) mg/dL AST 6 (0-40) U/L ALT 8 (0-41) U/L Alkaline Phosphatase 131 H (40-130) IU/L Albumin 3.5 (3.5-5.2) g/dL Coags 02/21/22 02/22/22 21:28 05:00 ESR 57 H C-Reactive Protein 348.9 H Microbiology 02/21/22 21:20 Blood Culture - Preliminary Blood SPECIMEN COLLECTED 02/21/22 21:26 Blood Culture - Preliminary Blood SPECIMEN COLLECTED Cardiac Studies: No Data to Display
--- NOTE | 2022-02-22 15:16 | P.OP_ITS ---
Operative Report Date of procedure: February 22, 2022 Pre-op diagnosis: Preop Diagnosis Right diabetic foot abscess Post-op diagnosis: The same Post-op findings: Right lateral wound measures 7 x 4 x 2.5 cm Right plantar wound measures 7 x 1.7 x [address] to the muscular fascial layer Procedure done: 1-Incision and drainage of right diabetic foot abscess 2-Sharp debridement of diabetic foot wound Implants: Packing with mini Kerlix and Surgicel Specimens removed/disposition: Tissues for cultures and sensitivities Swabs for cultures and sensitivity Surgeon: Chad Paredes MD Slide Maker: Kati Lopez and [place] surgical product sales consultant student Anesthesia: General (EVELYN De Leon) Estimated blood loss: 10 ml Procedure: Patient after being identified in the holding area and his right lower extremity was marked by me, an informed consent per chart ,patient was then taken back to the OR placed in supine position got intubated by anesthesia. Time-out was done verifying the patient's name/date of /planned procedure and destination after the procedure, all were in agreement.preoperative antibiotics administered per protocol, and beta sanya protocol was confirmed, patient was then intubated by the anesthesia provider. prep and drape of the right lower extremity was done under the usual sterile technique. There was an evidence of a sinus tract between the plantar surface located at the bases between the fourth and fifth metatarsal heads and a right lateral distal aspect of the foot shows a sinus. both sinus were communicating. And there was a lot of purulent discharge. Started extending skin incision on the lateral aspect were necrotic tissues and pus were revealed, swabs were sent as well as tissues for cultures and sensitivities. Deviated my attention towards the plantar aspect was more pus and necrotic tissues were debrided sharply all the way to the muscular fascial layers. Swabs were sent for culture for aerobes and anaerobes, as well as tissues sent for culture and the callus tissues were sent for permanent pathology At that point there was no bone exposure and patient continued to have intact distal pulsations particularly the right dorsalis pedis artery that was well palpable. Right lateral wound measures 7 x 4 x 2.5 cm Right plantar wound measures 7 x 1.7 x [address] to the muscular fascial layer Copious and thorough irrigation was done using Vashe 1 L followed by 3 L of saline using Pulsavac. Hemostasis was secured using Bovie cauterization and pieces of Surgicel were placed in the wound 1 sheet was placed towards the right lateral wound and another smaller sheet was placed onto the plantar wound. Followed by gentle packing of the wounds was done by wet-to-dry mini Kerlix, then application of dry ABDs, Kerlix wrap, then THIERRY wrap. Count was completed at the end of the procedure I was present for the whole entire procedure Patient was then taken to the recovery in stable condition after being extubated
[2022-02-22] MEDS: fentaNYL 50 mcg/mL INJ 2mL IVP (15:40)
[2022-02-22] MEDS: vancomycin 1,500 MG/300 ML PIGGYBACK 200 MG IV (16:54)
[2022-02-22] MEDS: HYDROmorphone 1 mg/mL INJ 1 mL 0.2 MG IVP (16:55)
[2022-02-22 17:51] LABS: Glucose Point of Care 249 mg/dL (70-110)
--- NOTE | 2022-02-22 18:56 | ANE.PACU2 ---
Inpatient post-anesthesia follow up: Airway intact: Yes Vital signs: Temperature 98.2 F Pulse Rate 88 Respiratory Rate 18 Blood Pressure 121/72 Pulse Oximetry 97 Oxygen Delivery Me thod Room Air Oxygen Flow Rate Fraction of Inspir ed Oxygen 21 Hydration adequate: Yes Nausea and vomiting: No Pain level: 2 Mental status: Baseline
[2022-02-22 20:40] LABS: Glucose Point of Care 247 mg/dL (70-110)
[2022-02-23] VITALS (12 sets, daily range): BP systolic 106–138; BP diastolic 64–78; PULSE 72–90; RESP 14–26; TEMP 36.4–37.3; O2SAT 94–98
[2022-02-23] MEDS: piperacillin-tazobactam 3.375 GM in sodium chloride 0.9% (plus) 50 ML IV ×3 (01:18→19:09)
[2022-02-23] MEDS: vancomycin 1,500 MG/300 ML PIGGYBACK 150 MG IV ×2 (05:35→17:08)
[2022-02-23] MEDS: morphine IR 15 mg Tablet PO ×2 (06:29→18:37)
[2022-02-23 06:42] LABS: Glucose Point of Care 200 mg/dL (70-110)
[2022-02-23 06:45] LABS: Basophils % 0.2 %; Eosinophils % 0.1 %; Hematocrit 39.1 % (42.0-52.0); Hemoglobin 11.8 g/dL (11.7-16.6); Lymphocytes # 1.6 10^3/uL (0.8-4.8); Lymphocytes % 7.5 %; Mean Corpuscular HGB Conc 30.2 g/dL (30.0-36.0); Mean Corpuscular Hemoglobin 25.9 pg (28.0-34.0); Mean Corpuscular Volume 85.7 fl (80-94); Mean Platelet Volume 10.2 fL (7.4-10.4); Monocytes # 0.9 10^3/uL (0.2-0.9); Monocytes % 4.2 %; Neutrophils # 17.87 10^3/uL (1.8-7.7); Neutrophils % 87.2 %; Nucleated Red Blood Cells % 0 %; Platelet Count 353 10^3/cmm (130-400); Red Blood Count 4.56 10^6/uL (4.1-5.3); Red Cell Distribution Width 13.5 % (12.1-15.1); White Blood Count 20.5 10^3/uL (4.0-10.0)
[2022-02-23 07:15] LABS: Anion Gap 16.2 (5-19); Blood Urea Nitrogen 23 mg/dL (6-20); Calcium 8.4 mg/dL (8.5-10.5); Carbon Dioxide 24 mmol/L (22-29); Chloride 99 mmol/L (98-107); Glomerular Filtration Rate 66.4 mL/min (90-130); Glucose 231 mg/dL (65-115); Magnesium 2.2 mg/dL (1.7-2.3); Osmolality Calculated 291 mOsm/kg (285-295); Potassium 4.2 mmol/L (3.5-5.1); Sodium 135 mmol/L (136-145)
--- NOTE | 2022-02-23 07:51 | PM.PN ---
Subjective Subjective: Patient overall feels better Medications: Reviewed: Yes Vitals/I&O/Wt Last Vital Signs Temp 97.7 F 02/23/22 03:10 Pulse 75 02/23/22 05:51 Resp 18 02/23/22 06:29 BP 119/71 02/23/22 03:10 Pulse Ox 97 02/23/22 06:29 02/22/22 02/23/22 02/23/22 22:59 06:59 14:59 Intake Total 1740 / 1770.833 598.75 / 2369.583 Output Total 1550 / 1570 Balance 1720 / 1750.833 -951.25 / 799.583 Weight last 48 hrs Weight 240 lb Weight 264 lb 1.6 oz Weight 240 lb Physical Exam Narrative: Patient is conscious alert oriented X3 No apparent distress BMI 32 Head and neck examination PERRLA no masses no cervical lymphadenopathy no jaundice Right foot wounds shows residual necrotic tissues but no evidence of pus and cellulitis is fading and much less edema Packing was removed bedside and repacked by me in the form of wet-to-dry using Dakin's solution Patient is moving all toes with some limitation of the right fifth toe Data : 02/23/22 06:10 02/23/22 06:10 Micro: Microbiology 02/21/22 21:20 Blood Culture - Preliminary Blood NEGATIVE TO DATE 02/21/22 21:26 Blood Culture - Preliminary Blood NEGATIVE TO DATE A&P Assessment and plan (1) Diabetic foot infection: Assessment 41 years old gentleman undergone I&D of right diabetic foot infection 02/22/2022 Plan 1-nutrition optimization, consider nutrition consultation and adding protein shakes diabetes friendly to each meal. 2-wound care in the form of: Packing twice daily using mini Kerlix wet-to-dry quarter strength Dakin solution followed by ABDs Kerlix and Stanton wrap 3-management of medical comorbidities 4-physical therapy consultation with focus on nonweight bearing right forefoot 5-assurance and education I did educate the patient that he may require further surgical debridement in the OR versus bedside. All questions have been answered and all concerns have been addressed to patient's satisfaction. 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
[2022-02-23] MEDS: insulin lispro 100 unit/1 mL SUBCUT ×4 (08:31→21:16)
[2022-02-23] MEDS: insulin lispro 100 unit/1 mL 8 UNIT SUBCUT ×2 (08:31→15:36)
[2022-02-23] MEDS: sennosides-docusate Tablet 1 TAB PO (09:26)
[2022-02-23] MEDS: metoprolol tartrate 50 mg Tablet PO ×2 (09:27→17:12)
[2022-02-23] MEDS: pantoprazole DR 40 mg Tablet PO (09:27)
[2022-02-23] MEDS: atorvastatin 40 mg Tablet 20 MG PO (09:27)
[2022-02-23] MEDS: aspirin 81 mg EC Tablet PO (09:27)
[2022-02-23] MEDS: sodium hypochlorite 0.125% Btl 473 mL 1 APPLIC TOPICAL ×2 (09:29→21:03)
[2022-02-23] MEDS: insulin glargine 100 units/1 mL 35 UNIT SUBCUT ×2 (09:29→21:16)
--- NOTE | 2022-02-23 10:05 | PC.CHAP ---
Pastoral Care Encounter/Spiritual Assessment Type of Contact [] Declined equipment hire manager visit [] Patient/Family/Request visit [] Outpatient visit [] Follow-up visit [] Physician referral [] Code/Alert [x] Routine visit [] Staff referral [] Actively dying [] Patient sleeping [] Family support [] [] Out of room [] Palliative care [] [] Receiving care in room [] Pre-surgical visit [] Trauma [] Long length of stay [] ICU visit [] Other: Relational/Emotional Strength [x] Patient feels connected with others/family/visitors/staff [] Distress [] Loneliness/isolation [] Abandonment Spirituality of Patient [x] Person of Elsa [] Attends Buddhism of their Elsa [x Believes in Prayer [] Reads Bible or Congregational materials [] There are Spiritual issues to be addressed Veterinary Technician Interventions [x] Prayer [x Active listening [x] Non-anxious presence [] Spiritual/emotional support [] Crisis/trauma care [] Spiritual counseling [] Bereavement support [] Provided bereavement packet [] Provided Bible/devotional materials [] Provided toy/stuffed animal, coloring book to patient or family member [] Provided Communion [] Anointing/[place] [] Salvation [x] Completed spiritual assessment [] Other: Impact on Illness or Injury [] Angry [] Fearful [] Anxious [] Often cries [] Exhaustion [] Unable to work [] Unable to attend druze [] Unable to walk/stand [] Unable to read [] Unable to drive [] Unable to eat/drink [] Unable to sleep [] Unable to be with family [] Patient intubated [] Other: Summary Time spent with patient 10 min
[2022-02-23] MEDS: sodium chloride 0.9% 1,000 ML 75 ML IV ×2 (11:26→19:49)
[2022-02-23 11:52] LABS: Glucose Point of Care 210 mg/dL (70-110)
--- NOTE | 2022-02-23 11:58 | PM.PN ---
Subjective Subjective: Seen this AM. Pt comfortable. He says he finally slept last night and glad he could get incision and drainage done. at bedside. He has ID doctor in [facility] and he would like to follow with him as outpatient after discharge. Vitals/I&O/Wt Last Vital Signs Temp 98.2 F 02/23/22 11:34 Pulse 82 02/23/22 11:34 Resp 14 02/23/22 11:34 BP 135/71 02/23/22 11:34 Pulse Ox 96 02/23/22 11:34 02/22/22 02/23/22 02/23/22 22:59 06:59 14:59 Intake Total 1740 / 1770.833 598.75 / 2369.583 1381.25 / 1381.25 Output Total 1550 / 1570 370 / 370 Balance 1720 / 1750.833 -951.25 / 126.335 5542.25 / 1011.25 Weight last 48 hrs Weight 108.862 kg Weight 119.794 kg Weight 108.862 kg Physical Exam Narrative: General: Alert ananda ented x3, patient seen laying in bed appearing comfort able.? at bed side. HEENT: Normo cephalic, atraumat ic, EOMI, breathin g normally. Cardio : Regular rate rhy thm, normal S1-S2, Respiratory: Good bilateral air ent ry, no wheezes no rhonchi appreciate d GI: Abdomen soft , nontender, nondi stended, bowel vamsi nds + Behavior: Ap propriate and coop erative Extremitie s: right foot wrap ped with bandage, dressing changed t his am Data : 02/23/22 06:10 02/23/22 06:10 Micro: Microbiology 02/21/22 21:20 Blood Culture - Preliminary Blood NEGATIVE TO DATE 02/21/22 21:26 Blood Culture - Preliminary Blood NEGATIVE TO DATE Other data: MRI right foot 02/22/2022 1.? Significant progression of adverse changes within the RIGHT foot since the prior study of 02/01/2022 which was performed without IV contrast. 2.? There is now osteomyelitis involving portions of the third, fourth and fifth metatarsals. Most significant destruction involving the fourth metatarsal head. 3.? The extensive soft tissue thickening and inflammatory changes surrounding the distal metatarsals and the proximal toes and the ulceration tract along the plantar surface of the foot but no enhancement. No focal abscess. 4.? Extensive soft tissue edema surrounding the foot has progressed. 5.? Small fluid collections intertarsal at the third and fourth, fourth and fifth metatarsal heads. No enhancement. Most consistent with synovitis and may be treated synovitis/cellulitis as there is no enhancement. A&P Assessment and plan (1) Diabetic foot infection: Status: Acute (2) SHELDON (acute kidney injury): Status: Acute (3) Hypertension: Status: Acute (4) Diabetes: Status: Acute (5) Leukocytosis: Status: Acute (6) Sepsis: Status: Acute (7) Cellulitis of foot, right: Status: Acute (8) Hyponatremia: Status: Acute Plan #Sepsis secondary to osteomyelitis 3-5th metatarsals and cellulitis, nonhealing diabetic foot ulcer right plantar surface #Mild SHELDON on CKD #Poorly controlled type 2 diabetes mellitus complicated by hyperglycemia #Dehydration #History of amputated toe #Hyponatremia -ESR elevated and CRP elevated. ? X-ray did not show any osteomyelitis changes ? Blood cultures obtained in ER, pending. ? Continue vancomycin and Zosyn ? Continue IV fluids -SHELDON most likely secondary to recent Bactrim use.? Creatinine is improving. ? MRI showed osteomyeltis 3rd, 4th, 5th toe with some sinus tracts. See report above. Patient is s/p incision and drainage with gen surgery. Surgery was consulted due to podiatry not being available. ? Will restart patient's eliquis. ? Arterial Dopplers ordered. See report attached. No vascular compromise to right foot. -Tight glucose control, Nutrition consult - Sodium improving - Will await cultures. Will need picc line and IV abx 6 weeks. - He will follow up with his ID doc inpatient in [facility] after discharge. Full code Attestations Medical Necessity Statement*: active infection. await cultures. > 48 hour stay expected Coding Level of Care Code Acute Clam Treader for g Fwd Diagnoses Diabetic foot infection E11.628; L08.9 SHELDON (acute kidney injury) N17.9 Hypertension I10 Diabetes E11.9 Leukocytosis D72.829 Sepsis A41.9 Cellulitis of foot, right L03.115 Hyponatremia E87.1
[2022-02-23 17:16] LABS: Glucose Point of Care 299 mg/dL (70-110)
[2022-02-23] MEDS: HYDROmorphone 1 mg/mL INJ 1 mL 0.2 MG IVP (20:12)
[2022-02-23 20:39] LABS: Glucose Point of Care 219 mg/dL (70-110)
[2022-02-23] MEDS: apixaban 5 mg Tablet 2.5 MG PO (21:16)
[2022-02-24] VITALS (23 sets, daily range): BP systolic 117–178; BP diastolic 63–90; PULSE 84–103; RESP 15–20; TEMP 36.7–37.9; O2SAT 91–103
[2022-02-24] MEDS: piperacillin-tazobactam 3.375 GM in sodium chloride 0.9% (plus) 50 ML IV ×3 (02:30→17:31)
[2022-02-24] MEDS: sodium chloride 0.9% 1,000 ML 75 ML IV (02:33)
[2022-02-24] MEDS: HYDROmorphone 1 mg/mL INJ 1 mL 0.2 MG IVP ×4 (03:57→21:37)
[2022-02-24 05:50] LABS: Basophils # 0.1 10^3/uL (0.0-0.1); Basophils % 0.4 %; Eosinophils # 0.1 10^3/uL (0.0-0.8); Eosinophils % 0.8 %; Hematocrit 36.7 % (42.0-52.0); Hemoglobin 11.2 g/dL (11.7-16.6); Lymphocytes # 2.8 10^3/uL (0.8-4.8); Lymphocytes % 15.6 %; Mean Corpuscular HGB Conc 30.5 g/dL (30.0-36.0); Mean Corpuscular Hemoglobin 26.2 pg (28.0-34.0); Mean Corpuscular Volume 85.9 fl (80-94); Mean Platelet Volume 10.9 fL (7.4-10.4); Monocytes # 1.1 10^3/uL (0.2-0.9); Monocytes % 6.2 %; Neutrophils # 13.63 10^3/uL (1.8-7.7); Neutrophils % 75.7 %; Nucleated Red Blood Cells % 0 %; Platelet Count 365 10^3/cmm (130-400); Red Blood Count 4.27 10^6/uL (4.1-5.3); Red Cell Distribution Width 13.7 % (12.1-15.1)
[2022-02-24] MEDS: vancomycin 1,500 MG/300 ML PIGGYBACK 150 MG IV (05:50)
[2022-02-24 06:11] LABS: Glucose Point of Care 188 mg/dL (70-110)
[2022-02-24 06:17] LABS: Anion Gap 15.7 (5-19); Blood Urea Nitrogen 20 mg/dL (6-20); Calcium 8.1 mg/dL (8.5-10.5); Carbon Dioxide 24 mmol/L (22-29); Chloride 102 mmol/L (98-107); Glomerular Filtration Rate 66.4 mL/min (90-130); Glucose 165 mg/dL (65-115); Magnesium 2.1 mg/dL (1.7-2.3); Osmolality Calculated 292 mOsm/kg (285-295); Potassium 3.7 mmol/L (3.5-5.1); Sodium 138 mmol/L (136-145)
[2022-02-24 06:19] LABS: Vancomycin Trough 18.3 ug/mL (10-15)
[2022-02-24] MEDS: metoprolol tartrate 50 mg Tablet PO ×2 (08:13→17:31)
[2022-02-24] MEDS: aspirin 81 mg EC Tablet PO (08:14)
[2022-02-24] MEDS: pantoprazole DR 40 mg Tablet PO (08:14)
[2022-02-24] MEDS: sennosides-docusate Tablet 1 TAB PO (08:14)
[2022-02-24] MEDS: apixaban 5 mg Tablet 2.5 MG PO ×2 (08:15→21:17)
[2022-02-24] MEDS: atorvastatin 40 mg Tablet 20 MG PO (08:17)
[2022-02-24] MEDS: insulin lispro 100 unit/1 mL SUBCUT ×2 (08:19→21:16)
[2022-02-24] MEDS: insulin lispro 100 unit/1 mL 8 UNIT SUBCUT (08:20)
[2022-02-24] MEDS: insulin glargine 100 units/1 mL 35 UNIT SUBCUT ×2 (08:22→21:16)
--- NOTE | 2022-02-24 08:35 | PM.MISC ---
Miscellaneous Note Purpose of Documentation: I have been asked by Dr. Lewis to review the arterial duplex study of February 22. Patient is being prepared for right transmetatarsal amputation due to advancing osteomyelitis, currently involving the right third fourth and fifth metatarsal. I have reviewed the report of the study and the imaging which suggests possible hemodynamically significant disease in the mid to proximal right SFA with monophasic waveforms distally and triphasic waveforms proximally. This would be better elucidated and defined by CTA with runoff. Reported RANDAL of 0.7 on the right suggest moderate PAD of the right lower extremity.
--- NOTE | 2022-02-24 09:29 | P.CONIM_ITS ---
Providers/Reason For Consult Consulting Physician/Specialty*: Tyler Ruvalcaba MD; orthopedic surgery Reason for Consult*: Osteomyelitis right foot Attending Physician: Amarilys Lewis MD History of Present Illness History of Present Illness Karel Sinha is a 41 year old male diabetic male who sustained a puncture wound who sustained a puncture wound in his right foot in early January. He was initially admitted on 01/31/2022. Work-up included an MRI of the foot which revealed only a small amount of fluid across about the metatarsal head. He was ultimately discharged on 02/03/2022 on levofloxacin and Bactrim. He presented again to our emergency room on 02/21/2022 with complaints of increasing foot pain, drainage, nausea and vomiting. General surgery was consulted and he was taken to the operating room by Dr. Shen on 02/22/2022 he underwent incision and drainage of the diabetic foot all abscess and sharp debridement of the wound. At the time of surgery a sinus tract was identified between the fourth and fifth metatarsals. Cultures at that time revealed group B streptococcus. An MRI was obtained on 02 22 showing progressive of the infection compared to previous radiographs and new osteomyelitis of the third fourth and fifth metatarsal heads. I was consulted today with concerns about persistent osteomyelitis any need for debridement versus of bone biopsies. Vascular surgery consultation was obtained today by . Arterial Doppler study revealed significant disease in the right superficial femoral artery. RANDAL of 0.7 was suggestive of moderate peripheral arterial disease in the right lower extremity. It was Dr. Strickland suggested that this would be better evaluated defined with a CT angiogram with runoff. Medications/Allergies Home Medications Medication Instructions Recorded Confirmed Last Taken Type apixaban 2.5 mg tablet (Eliquis) 2.5 mg PO BID 30 Days #60 tab 02/03/22 02/22/22 Unknown Rx insulin glargine 100 unit/mL (3 35 unit (0.35 mL) SUBCUT BID 30 02/03/22 02/22/22 Unknown Rx mL) subcutaneous pen (Lantus Days #3 ml Solostar U-100 Insulin) insulin lispro 100 unit/mL 8 unit (0.08 mL) SUBCUT TID #3 ml 02/03/22 02/22/22 Unknown Rx subcutaneous pen metoprolol tartrate 50 mg tablet 50 mg PO BID 30 Days #60 tab 02/03/22 02/22/22 Unknown Rx acetaminophen 500 mg tablet 1,000 mg PO Q6H PRN 02/22/22 02/22/22 02/21/22 History aspirin 81 mg tablet,delayed 81 mg PO QAM 02/22/22 02/22/22 Unknown History release atorvastatin 20 mg tablet 20 mg PO BEDTIME 02/22/22 02/22/22 Unknown History Allergies Allergy/AdvReac Type Severity Reaction Status Date / Time No Known Allergies Allergy Verified 02/22/22 13:51 Current Medications Generic Name Dose Route Start Last Admin Trade Name Tedq PRN Reason Stop Dose Admin Apixaban 2.5 mg 02/23/22 21:00 02/24/22 08:15 Apixaban 5 Mg Tablet PO 2.5 mg BID@0900,2100 URSULA Administration Aspirin 81 mg 02/22/22 09:00 02/24/22 08:14 Aspirin 81 Mg Ec Tablet PO 81 mg DAILY URSULA Administration Atorvastatin Calcium 20 mg 02/22/22 09:00 02/24/22 08:17 Atorvastatin 40 Mg Tablet PO 20 mg DAILY URSULA Administration Hydromorphone HCl 0.2 mg 02/22/22 00:13 02/24/22 03:57 Hydromorphone 1 Mg/Ml Inj 1 Ml IVP 0.2 mg Q4H PRN Administration pain Sodium Chloride 1,000 mls @ 75 mls/hr 02/22/22 00:13 02/24/22 02:33 Sodium Chloride 0.9% IV 75 mls/hr .[id number] URSULA Administration Piperacillin Sod/Tazobactam 50 mls @ 12.5 mls/hr 02/22/22 01:00 02/24/22 02:30 Sod 3.375 gm/ Sodium Chloride IV 12.5 mls/hr Q8H URSULA Administration Protocol Vancomycin/PEG/NADA/Lysine/Water 1,500 mg in 300 mls @ 200 mls/hr 02/22/22 17:00 02/24/22 05:50 Vancocin IV 150 mls/hr Q12H URSULA Administration Insulin Glargine 35 unit 02/23/22 09:00 02/24/22 08:22 Insulin Glargine 100 Units/1 Ml SUBCUT 35 unit BID@0900,2100 URSULA Administration Insulin Human Lispro 0 unit 02/22/22 08:00 02/24/22 08:19 Insulin Lispro 100 Unit/1 Ml SUBCUT 6 unit WM&BEDTIME URSULA Administration Protocol Insulin Human Lispro 8 unit 02/22/22 15:00 02/24/22 08:20 Insulin Lispro 100 Unit/1 Ml SUBCUT 8 unit TID URSULA Administration Metoprolol Tartrate 50 mg 02/22/22 09:00 02/24/22 08:13 Metoprolol Tartrate 50 Mg Tablet PO 50 mg BID URSULA Administration Morphine Sulfate 15 mg 02/22/22 00:13 02/23/22 18:37 Morphine Ir 15 Mg Tablet PO 15 mg Q6H PRN Administration pAIN Pantoprazole Sodium 40 mg 02/22/22 09:00 02/24/22 08:[address] 40 Mg Tablet PO 40 mg DAILY URSULA Administration Senna/Docusate Sodium 1 tab 02/22/22 09:00 02/24/22 08:14 Sennosides-Docusate Tablet PO 1 tab DAILY URSULA Administration Sodium Hypochlorite 1 applic 02/23/22 08:00 02/23/22 21:03 Sodium Hypochlorite 0.125% Btl 473 Ml TOPICAL 1 applic Q12H URSULA Administration PFSH Acute PFSH: Medical History SHELDON (acute kidney injury) Amputated toe Cellulitis Diabetes Diabetes Foot pain Hypercalcemia Hypertension Puncture wound Surgical History H/O toe surgery Family History Other Diabetes Social History Smoking and tobacco status: never smoked Alcohol intake: never Vitals/I&O/Wt Last Vital Signs Temp 99.0 F 02/24/22 07:48 Pulse 84 02/24/22 07:48 Resp 18 02/24/22 07:48 BP 136/63 02/24/22 07:48 Pulse Ox 95 02/24/22 07:48 02/23/22 02/24/22 02/24/22 22:59 06:59 14:59 Intake Total 1388.75 / 3180.00 1035 / 4215.00 240 / 240 Output Total 1070 / 1440 950 / 2390 200 / 200 Balance 318.75 / 1740.00 85 / 1825.00 40 / 40 Weight last 48 hrs Weight 240 lb Data : 02/24/22 04:22 02/24/22 04:22 Micro: Microbiology 02/22/22 14:47 Gram Stain - Final Toe - Right Anaerobic Culture - Preliminary Tissue Culture - Preliminary Strep agalactiae - (group b) 02/22/22 14:47 Gram Stain - Final Other Source Anaerobic Culture - Preliminary Wound Culture - Preliminary Strep agalactiae - (group b) Other data: I reviewed MRI images as well as her report of the right foot dated 02/22/2022 with comparison MRI images dated 02/01/2022. There is osteomyelitis identified i n the third fourth and fifth metatarsals with most pronounced destruction of the fourth metatarsal head which is new compared to 02/01/2022 MRI. There is associated soft tissue thickening and inflammation and suggested of a ulceration tract along the plantar aspect of the foot without enhancement. Edema in the foot has a similarly progress. Small fluid collections are seen about the third fourth and fifth metatarsal heads. Plain radiographs of the right foot are reviewed dated 01/22/2022 which revealed no significant findings. A&P Assessment and plan (1) Diabetic foot infection: Mr. Valadez has failed to respond well to initial treatment debridements by general surgery. An MRI is revealed osteomyelitis of his third fourth and fifth metatarsal heads. It is my opinion that is extremely unlikely that his osteomy elitis can be adequately treated with antibiotics alone. I think he will need this surgically debrided. We could proceed with a partial amputation of his foot removing the third fourth and fifth metatarsals at the distal metatarsal level aggressive debridement as initial step and see how this responds. Dr. Strickland will be proceeding with vascular work-up to see if he would be a candidate for additional revascularization. I told the patient we will leave his wound open and consider delayed closure or revision if he responds to appropriate treatment. The patient understands the gravity of the diagnosis. I warned him that even with aggressive debridement and antibiotics he could require further amputation. He understands and agrees with our plan to surgery. Status: Acute Coding Level of Care Code Acute Track Welder for [facility] Diagnoses Diabetic foot infection E11.628; L08.9
[2022-02-24] MEDS: morphine IR 15 mg Tablet PO (09:50)
--- NOTE | 2022-02-24 11:12 | CTR_ITS ---
PROCEDURE INFORMATION: Exam: CTA Angiogram of the Abdominal Aorta and Bilateral Lower Extremities (Run-off) With IV Contrast Exam date and time: 02/24/2022 12:37 PM Age: 41 years old Clinical indication: Numbness; Lower extremity; Bilatera; Prior surgery; Surgery type: RT foot, left hip, left lower leg. ; Additional info: Rule out occlusion. Difficulty walking, weakness in legs. RT foot infection PT is a diabetic TECHNIQUE: Imaging protocol: CT angiogram of the abdominal aorta, pelvis and bilateral lower extremities with IV iodinated contrast. 3D rendering (Not supervised by radiologist): MIP and/or 3D reconstructed images were created by the technologist. Radiation optimization: All CT scans at this facility use at least one of these dose optimization techniques: automated exposure control; mA and/or kV adjustment per patient size (includes targeted exams where dose is matched to clinical indication); or iterative reconstruction. Contrast material: OMNI 350; Contrast volume: 95 ml; Contrast route: INTRAVENOUS (IV); COMPARISON: CT foot RT wo/w con [id number] 01/31/2022 4:41 PM RADIATION DOSE METRICS: Total DLP (mGy-cm): 2529.01 FINDINGS: Aorta: There is calcification of the abdominal aorta but there is no abdominal aortic aneurysm. Celiac trunk and mesenteric arteries: No occlusion or significant stenosis. Renal arteries: No occlusion or significant stenosis. Right iliac arteries: There is an intraluminal stent extending from the distal abdominal aorta through the right common iliac artery which appears patent the external iliac artery is normally patent. Right femoral/popliteal arteries: There are multiple short high-grade stenoses in the distal right superficial femoral artery and popliteal artery. Right infrapopliteal arteries: There are high-grade stenoses in the proximal right anterior tibial artery. The right posterior tibial and peroneal arteries opacify normally. Left iliac arteries: There is a long intraluminal stent extending from the distal abdominal aorta through the left common iliac and external iliac arteries which appears to be patent. Left femoral/popliteal arteries: There is a common femoral to popliteal bypass graft which appears to be patent. The [place] superficial femoral artery is occluded.. Left infrapopliteal arteries: The left anterior tibial, posterior tibial and peroneal arteries fill down to the ankle. Lungs: Bibasilar subsegmental atelectasis and fibrosis. Liver: No mass. Gallbladder and bile ducts: Unremarkable. No calcified stones. No ductal dilation. Pancreas: Unremarkable. No mass. No ductal dilation. Spleen: Normal. No splenomegaly. Adrenals: Normal. No mass. Kidneys and ureters: Normal. No mass. Stomach and bowel: Unremarkable. No obstruction. No mucosal thickening. Appendix: No evidence of appendicitis. Urinary bladder: Unremarkable. No mass. Reproductive: Unremarkable as visualized. Intraperitoneal space: Unremarkable. No free air. No significant fluid collection. Lymph nodes: No lymphadenopathy. Bones/joints: An intramedullary alyx bridges an old left femur fracture. Soft tissues: There is a 2.3 cm fluid collection in the plantar soft tissues of the right foot with overlying infiltration. This consistent with left foot abscess.. CT/CT angio abd aorta runof 55401 IMPRESSION: 1. Atherosclerotic aorta but no abdominal aortic aneurysm. 2. Bilateral iliac artery stents are patent. 3. A left femoral to popliteal bypass graft is patent. 4. Multiple high-grade stenoses in the distal right superficial femoral artery, popliteal artery and anterior tibial artery. 5. The arteries in the left lower leg are patent. 6. There is a 2.3 cm fluid collection in the plantar soft tissues of the right foot with overlying infiltration consistent with infection and abscess.
--- NOTE | 2022-02-24 12:18 | PM.PN ---
Subjective Subjective: Seen this morning. Patient n.p.o. for possible intervention with orthopedic surgery today. CTA abdomen with runoff ordered to evaluate for vascular disease. Patient n.p.o. White count 18,000. Vitals/I&O/Wt Last Vital Signs Temp 98.2 F 02/24/22 11:18 Pulse 86 02/24/22 11:18 Resp 18 02/24/22 11:18 BP 136/75 02/24/22 11:18 Pulse Ox 95 02/24/22 11:18 02/23/22 02/24/22 02/24/22 22:59 06:59 14:59 Intake Total 1388.75 / 3180.00 1085 / 4265.00 240 / 240 Output Total 1070 / 1440 950 / 2390 650 / 650 Balance 318.75 / 1740.00 135 / 1875.00 -410 / -410 Physical Exam Narrative: General: Alert oriented x3, patient seen laying in bed appearing comfortable.? at bedside. HEENT: Normocephalic, atraumatic, EOMI, breathing normally. Cardio: Regular rate rhythm, normal S1-S2, Respiratory: Good bilateral air entry, no wheezes no rhonchi appreciated GI: Abdomen soft, nontender, nondistended, bowel sounds + Behavior: Appropriate and cooperative Extremities: right foot wrapped with bandage Data : 02/24/22 04:22 02/24/22 04:22 Micro: Microbiology 02/22/22 14:47 Gram Stain - Final Toe - Right Anaerobic Culture - Preliminary Tissue Culture - Preliminary Strep agalactiae - (group b) 02/22/22 14:47 Gram Stain - Final Other Source Anaerobic Culture - Preliminary Wound Culture - Preliminary Strep agalactiae - (group b) A&P Assessment and plan (1) Diabetic foot infection: Status: Acute (2) SHELDON (acute kidney injury): Status: Acute (3) Hypertension: Status: Acute (4) Diabetes: Status: Acute (5) Leukocytosis: Status: Acute (6) Sepsis: Status: Acute (7) Cellulitis of foot, right: Status: Acute (8) Hyponatremia: Status: Acute Plan #Sepsis secondary to osteomyelitis 3-5th metatarsals and cellulitis, nonhealing diabetic foot ulcer right plantar surface #Mild SHELDON on CKD #Poorly controlled type 2 diabetes mellitus complicated by hyperglycemia #Dehydration #History of amputated toe #Hyponatremia -ESR elevated and CRP elevated. ? X-ray did not show any osteomyelitis changes ? Blood cultures obtained in ER, pending. ? Continue vancomycin and Zosyn ? Continue IV fluids -SHELDON most likely secondary to recent Bactrim use.? Creatinine normalized. ? MRI showed osteomyeltis 3rd, 4th, 5th toe with some sinus tracts. See report above. Patient is s/p incision and drainage with gen surgery. Surgery was consulted due to podiatry not being available. - hold eliquis ? Arterial Dopplers ordered. See report attached. Will check CTA abdomen with runoff. Appreciate recommendations from [facility]. -Tight glucose control, Nutrition consult - Pt to go for TMA today with ortho. Patient and agreeable and interested. - He will follow up with his ID doc inpatient in [facility] after discharge. Full code Attestations Medical Necessity Statement*: TMA today. Coding Level of Care Code Acute Galley Cook for [facility] Diagnoses Diabetic foot infection E11.628; L08.9 SHELDON (acute kidney injury) N17.9 Hypertension I10 Diabetes E11.9 Leukocytosis D72.829 Sepsis A41.9 Cellulitis of foot, right L03.115 Hyponatremia E87.1
[2022-02-24 12:19] LABS: Glucose Point of Care 93 mg/dL (70-110)
[2022-02-24] MEDS: iohexol 350 mg/mL 100 mL Btl IV (13:02)
--- NOTE | 2022-02-24 14:31 | P.ANESUD_ITS ---
Pre-Anesthetic Update Pre-Anesthetic Assessment: Date of Surgery/Procedure: 02/24/22 Preop Tammy gnosis: Right diabetic foot abscess Proposed Procedure: Operation Date: 02/22/22 15:00 Proposed Procedures p Incision And Drainage foot(Right) - Chad Paredes MD Operation Date: 02/24/22 16:00 Proposed Procedures p Amputation Foot(Right) - Tyler Ruvalcaba MD Any changes to Pre-Anesthetic Assessment?: No Last Intake: Intake Last Liquid Date 02/22/22 Last Liquid Time 08:00 Last Solid Date 02/22/22 Last Solid Time 08:00 Labs Last 48hrs: Short CBC 02/23/22 02/24/22 Range/Units 06:10 04:22 WBC 20.5 H 18.0 H (4.0-10.0) 10^3/ uL Hgb 11.8 11.2 L (11.7-16.6) g/dL Hct 39.1 L 36.7 L (42.0-52.0) % MCV 85.7 85.9 (80-94) fl Plt Count 353 365 (130-400) 10^3/c mm Neut % (Auto) 87.2 75.7 % Neut # (Auto) 17.87 H 13.63 H (1.8-7.7) 10^3/u L BMP 02/23/22 02/24/22 06:10 04:22 Sodium 135 L 138 Potassium 4.2 3.7 Chloride 99 102 Carbon Dioxide 24 24 BUN 23 H 20 Creatinine 1.2 1.2 Glucose 231 H 165 H Calcium 8.4 L 8.1 L Vitals: Temperature 98.2 F 02/24/22 11:18 Temperature Source Axillary 02/24/22 11:18 Pulse Rate 86 02/24/22 11:18 Pulse Rhythm 02/24/22 08:00 Pulse Strength 2+ Slightly Dimin ished 02/24/22 08:00 Respiratory Rate 18 02/24/22 11:18 Respiratory Effort Non-Labored 02/24/22 08:00 Respiratory Depth Normal 02/24/22 08:00 Respiratory Patter n 02/24/22 08:00 Blood Pressure 136/75 02/24/22 11:18 Blood Pressure [place] n 95 02/24/22 11:18 Blood Pressure Pos ition Supine 02/24/22 09:35 Pulse Oximetry 95 02/24/22 11:18 Oxygen Delivery Me thod 02/24/22 09:35 Oxygen Flow Rate 2 02/24/22 08:00 Fraction of Inspir ed Oxygen 21 02/22/22 20:02 Sepsis Recent Feve r Within 48 Hours Yes 02/21/22 20:56 Sepsis New/Unexpla ined Change in Men rosa Status No 02/21/22 20:56 Sepsis Action Take n by Nursing Physician Notifie d 02/21/22 20:56 Exam: Pre-Anes Outpt Exam: alert, oriented x 3, clear to auscultation bilaterally and regular rate & rhythm Other Pertinent Information: Other Pertinent Information: Patient questioned regarding sensation and pain in foot, declined nerve block Cardiac Studies: No Data to Display
[2022-02-24] MEDS: sodium chloride 0.9% 1,000 ML 30 ML IV (15:00)
--- NOTE | 2022-02-24 16:27 | PM.OP ---
Operative Report Date of procedure: February 24, 2022 Pre-op diagnosis: Preop Diagnosis Right diabetic foot abscess Preop Diagnosis Right diabetic foot abscess Post-op diagnosis: same Procedure done: Amputation right third fourth and fifth rays Specimens removed/disposition: Routine anaerobic cultures were sent of purulent fluid identified between the third and fourth rays. Bone from the fourth metatarsal head was sent for routine and anaerobic culture Pathology: none sent Pathology: Left lateral forefoot was sent to pathology Surgeon: Tyler Ruvalcaba Estimated blood loss (mL): 15 Tourniquet time (min): 15 Complications: None Findings: The patient had necrotic tissue over his lateral for fit in the area of the previous excision. He had purulent mid tissue tissue between the third and fourth rays extending along the plantar foot to approximately the level of the metatarsal bases. Overall he had of poor vascularity Condition: stable Disposition: PACU Procedure: Karel was taken the operating room and given a general anesthesia. His right lower extremities prepped and draped in the usual fashion. I initially the fourth and fifth rays were rate removed resecting down the interspace between the third and and fourth rays and removing all necrotic tissue plantarly between the fourth and fifth rays and along the lateral border of the foot. A sagittal saw was used to remove the fourth and fifth metatarsals at the bases. Purulent material was identified between the third and fourth rays and this was sent for routine and anaerobic culture. The third toe was then excised with the distal third of the metatarsal which was divided with a saw leaving dorsal and volar skin flaps overlying the mid metatarsal hopefully for future culture. Abscess material was seen to track proximally beneath the third metatarsal. This was due to drained and necrotic tissue removed with a scalpel and rongeur. The wound was irrigated with saline. The wound was packed open with a saline soaked Kerlix roll and covered with ABD pads and Stanton wrap. He was taken to recovery room in stable condition.
[2022-02-24 16:51] LABS: Glucose Point of Care 96 mg/dL (70-110)
[2022-02-24] MEDS: sodium hypochlorite 0.125% Btl 473 mL 1 APPLIC TOPICAL (17:26)
[2022-02-24 20:56] LABS: Glucose Point of Care 91 mg/dL (70-110)
[2022-02-24 20:57] LABS: Glucose Point of Care 163 mg/dL (70-110)
[2022-02-25] VITALS (9 sets, daily range): BP systolic 133–175; BP diastolic 62–79; PULSE 61–104; RESP 15–20; TEMP 37–37.7; O2SAT 93–96
[2022-02-25] MEDS: sodium chloride 0.9% 1,000 ML 75 ML IV ×2 (00:06→12:44)
[2022-02-25] MEDS: piperacillin-tazobactam 3.375 GM in sodium chloride 0.9% (plus) 50 ML IV ×3 (03:39→17:47)
[2022-02-25] MEDS: HYDROmorphone 1 mg/mL INJ 1 mL 0.2 MG IVP ×4 (03:51→18:28)
[2022-02-25] MEDS: vancomycin 1,500 MG/300 ML PIGGYBACK 150 MG IV ×2 (06:06→16:28)
[2022-02-25 06:16] LABS: Glucose Point of Care 151 mg/dL (70-110)
[2022-02-25] MEDS: insulin glargine 100 units/1 mL 35 UNIT SUBCUT ×2 (08:07→20:35)
[2022-02-25] MEDS: sennosides-docusate Tablet 1 TAB PO (08:08)
[2022-02-25] MEDS: apixaban 5 mg Tablet 2.5 MG PO ×2 (08:08→20:32)
[2022-02-25] MEDS: insulin lispro 100 unit/1 mL SUBCUT ×3 (08:08→20:31)
[2022-02-25] MEDS: pantoprazole DR 40 mg Tablet PO (08:08)
[2022-02-25] MEDS: aspirin 81 mg EC Tablet PO (08:08)
[2022-02-25] MEDS: insulin lispro 100 unit/1 mL 8 UNIT SUBCUT ×3 (08:08→20:31)
[2022-02-25] MEDS: atorvastatin 40 mg Tablet 20 MG PO (08:08)
[2022-02-25] MEDS: metoprolol tartrate 50 mg Tablet PO ×2 (08:09→17:47)
[2022-02-25 08:56] LABS: Basophils # 0.1 10^3/uL (0.0-0.1); Basophils % 0.6 %; Eosinophils # 0.3 10^3/uL (0.0-0.8); Eosinophils % 1.5 %; Hemoglobin 11.1 g/dL (11.7-16.6); Lymphocytes # 3.1 10^3/uL (0.8-4.8); Lymphocytes % 18.1 %; Mean Corpuscular Hemoglobin 25.9 pg (28.0-34.0); Mean Corpuscular Volume 86.4 fl (80-94); Mean Platelet Volume 9.7 fL (7.4-10.4); Monocytes # 1.3 10^3/uL (0.2-0.9); Monocytes % 7.4 %; Neutrophils # 11.98 10^3/uL (1.8-7.7); Neutrophils % 70.1 %; Nucleated Red Blood Cells % 0 %; Platelet Count 489 10^3/cmm (130-400); Red Blood Count 4.28 10^6/uL (4.1-5.3); Red Cell Distribution Width 14.2 % (12.1-15.1); White Blood Count 17.1 10^3/uL (4.0-10.0)
[2022-02-25 09:12] LABS: Anion Gap 16.4 (5-19); Blood Urea Nitrogen 11 mg/dL (6-20); Calcium 7.9 mg/dL (8.5-10.5); Carbon Dioxide 21 mmol/L (22-29); Chloride 98 mmol/L (98-107); Glomerular Filtration Rate 73.4 mL/min (90-130); Glucose 218 mg/dL (65-115); Magnesium 1.9 mg/dL (1.7-2.3); Osmolality Calculated 280 mOsm/kg (285-295); Potassium 3.4 mmol/L (3.5-5.1); Sodium 132 mmol/L (136-145)
[2022-02-25 09:28] LABS: Slide Review Slide Review Perform
--- NOTE | 2022-02-25 10:06 | P.PN_ITS ---
Subjective Subjective: Seen this morning. He is status post surgical debridement yesterday. Patient had extensive debridement and third fourth fifth toe amputated. Patient states his pain is better. He is overall feeling better from pain aspect. WBC 17,000. is present at bedside Vitals/I&O/Wt Last Vital Signs Temp 99.9 F H 02/25/22 04:00 Pulse 95 02/25/22 07:09 Resp 17 02/25/22 07:09 BP 151/75 02/25/22 07:09 Pulse Ox 95 02/25/22 07:09 02/24/22 02/25/22 02/25/22 22:59 06:59 14:59 Intake Total 1150 / 1690 290 / 1980 540 / 540 Output Total 302 / 1452 0 / 1452 400 / 400 Balance 848 / 238 290 / 528 140 / 140 Physical Exam Narrative: General: Alert oriented x3, patient seen laying in bed Cardio: Regular rate rhythm, normal S1-S2, Respiratory: Good bilateral air entry, no wheezes no rhonchi appreciated GI: Abdomen soft, nontender, nondistended, bowel sounds + Extremities: right foot wrapped with bandage Data : 02/25/22 08:48 02/25/22 08:48 Micro: Microbiology 02/22/22 14:47 Gram Stain - Final Toe - Right Anaerobic Culture - Preliminary Tissue Culture - Final Strep agalactiae - (group b) 02/22/22 14:47 Gram Stain - Final Other Source Anaerobic Culture - Preliminary Wound Culture - Final Strep agalactiae - (group b) A&P Assessment and plan (1) Diabetic foot infection: Status: Acute (2) SHELDON (acute kidney injury): Status: Acute (3) Hypertension: Status: Acute (4) Diabetes: Status: Acute (5) Leukocytosis: Status: Acute (6) Sepsis: Status: Acute (7) Cellulitis of foot, right: Status: Acute (8) Hyponatremia: Status: Acute Plan #Sepsis secondary to osteomyelitis 3-5th metatarsals and cellulitis, nonhealing diabetic foot ulcer right plantar surface (Pt tachycardic, febrile at admission, with evidence of end organ dysfunction (Acute kidney injury), elevated wbc [id number]) #Pt s/p I&D, and extensive debridement of right foot wound with amputation of 3rd, 4th, 5th toe) #Mild SHELDON on CKD secondary to sepsis on admission #Poorly controlled type 2 diabetes mellitus complicated by hyperglycemia #Dehydration - improved #History of amputated toe #Hyponatremia - resolved -ESR elevated and CRP elevated. ? X-ray did not show any osteomyelitis changes ? Blood cultures obtained in ER, pending. ? Continue vancomycin and Zosyn ? Continue IV fluids -SHELDON most likely secondary to recent Bactrim use but pre-renal cause due to dehydration and sepsis is favored..? Creatinine normalized. ? MRI showed osteomyeltis 3rd, 4th, 5th toe with some sinus tracts. See report above. Patient is s/p incision and drainage with gen surgery. Surgery was consulted due to podiatry not being available. - Underwent surgical debridement of 3rd,4th,5th toe with abcess washout 02/24/2022. - Continue eliquis ? Arterial Dopplers ordered. See report attached. CTA abd runoff reviewed with Dr. Noguera. Patient does have multiple levels of high-grade stenosis on right side. Will discuss with differential radiology if patient's case is amenable to stenting. If not we will most likely go with a surgical approach. -Tight glucose control, Nutrition consult -All cultures obtained intraoperatively are pending. - He will follow up with his ID doc [email or web address] after discharge. Full code Attestations Medical Necessity Statement*: WBC still elevated [id number], patient still febrile. He will need to stay in hospital for inpatient management. He may also need vascular intervention. Coding Level of Care Code Acute Drinking Water Technician for [facility] Fwd Diagnoses Diabetic foot infection E11.628; L08.9 SHELDON (acute kidney injury) N17.9 Hypertension I10 Diabetes E11.9 Leukocytosis D72.829 Sepsis A41.9 Cellulitis of foot, right L03.115 Hyponatremia E87.1
[2022-02-25] MEDS: potassium chloride ER 20 mEq Tablet 40 MEQ PO ×2 (10:31→12:48)
[2022-02-25 11:53] LABS: Glucose Point of Care 116 mg/dL (70-110)
--- NOTE | 2022-02-25 11:53 | P.MISC_ITS ---
Miscellaneous Note Purpose of Documentation: I have reviewed the CTA with runoff. There appear to be discrete in-stent restenosis in the distal SFA extending into the popliteal artery and involving the anterior tibial artery on the right side. Since he has recently undergone surgery to his right foot for abscess and o steomyelitis, this would not be an ideal time to consider surgery revascularization, in the face of the potential need for prosthetic graft. I would recommend that we ask our interventional colleagues to review the study to see if they think that distal SFA angioplasty into the popliteal artery may be of benefit.
--- NOTE | 2022-02-25 16:49 | PM.CONSULT ---
Providers/Reason For Consult Consulting Physician/Specialty*: Cardiovascular medicine Reason for Consult*: Lower extremity peripheral arterial disease Requesting Physician: Hospitalist Attending Physician: Amarilys Lewis MD History of Present Illness History of Present Illness Krael Sinha is a 41 year old male with who unfortunately has severe peripheral arterial disease at a young age. He has had bilateral iliac stents placed in the past. He is also had a femoral-popliteal bypass on the left. This was when he developed infection and had to have 2 toes removed on the left. He has a number of other medical problems the most significant and severe of which is diabetes which has not been well controlled. He lives in [place] and is up here because of his son's graduation from high school. He was admitted here on the of last month through the with cellulitis of the right foot. This occurred after he suffered a puncture wound. There was a ulcer on the foot. He went home on antibiotics. He came back 4 days ago on the second with intractable nausea and vomiting and increased pain, swelling and drainage from the right foot. He has been diagnosed with cellulitis and sepsis. He saw general surgery on the third. He underwent incision and draining of the foot on the third. Subsequently he was diagnosed with osteomyelitis. He was seen by orthopedics yesterday and underwent surgery to resect the third, fourth and fifth rays on the right foot. There was osteomyelitis, abscess and infection throughout. Cultures are pending. Ultrasound of the right lower extremity suggested significant disease of the SFA on the right. He then had a CT angiogram which shows a distal superficial femoral artery stenosis which extends into the popliteal and anterior tibial artery on the right. The iliac stents are patent. The left femoral-popliteal bypass is patent. His BUN and creatinine are now normal and his white blood cell count is still 17,000. We have been asked to see him to consider potential intervention to the right lower extremity. Patient is taking apixaban along with insulin, beta-sanya, statin and aspirin. Review of Systems Narrative: Other than what pertains to his right foot, the review of systems is negative. Medications/Allergies Home Medications Medication Instructions Recorded Confirmed Last Taken Type apixaban 2.5 mg tablet (Eliquis) 2.5 mg PO BID 30 Days #60 tab 02/03/22 02/22/22 Unknown Rx insulin glargine 100 unit/mL (3 35 unit (0.35 mL) SUBCUT BID 30 02/03/22 02/22/22 Unknown Rx mL) subcutaneous pen (Lantus Days #3 ml Solostar U-100 Insulin) insulin lispro 100 unit/mL 8 unit (0.08 mL) SUBCUT TID #3 ml 02/03/22 02/22/22 Unknown Rx subcutaneous pen metoprolol tartrate 50 mg tablet 50 mg PO BID 30 Days #60 tab 02/03/22 02/22/22 Unknown Rx acetaminophen 500 mg tablet 1,000 mg PO Q6H PRN 02/22/22 02/22/22 02/21/22 History aspirin 81 mg tablet,delayed 81 mg PO QAM 02/22/22 02/22/22 Unknown History release atorvastatin 20 mg tablet 20 mg PO BEDTIME 02/22/22 02/22/22 Unknown History Allergies Allergy/AdvReac Type Severity Reaction Status Date / Time No Known Allergies Allergy Verified 02/22/22 13:51 Current Medications Generic Name Dose Route Start Last Admin Trade Name Tedq PRN Reason Stop Dose Admin Apixaban 2.5 mg 02/23/22 21:00 02/25/22 08:08 Apixaban 5 Mg Tablet PO 2.5 mg BID@0900,2100 URSULA Administration Aspirin 81 mg 02/22/22 09:00 02/25/22 08:08 Aspirin 81 Mg Ec Tablet PO 81 mg DAILY URSULA Administration Atorvastatin Calcium 20 mg 02/22/22 09:00 02/25/22 08:08 Atorvastatin 40 Mg Tablet PO 20 mg DAILY URSULA Administration Hydromorphone HCl 0.2 mg 02/22/22 00:13 02/25/22 14:27 Hydromorphone 1 Mg/Ml Inj 1 Ml IVP 0.2 mg Q4H PRN Administration pain Sodium Chloride 1,000 mls @ 75 mls/hr 02/22/22 00:13 02/25/22 12:44 Sodium Chloride 0.9% IV 75 mls/hr .[id number] URSULA Administration Piperacillin Sod/Tazobactam 50 mls @ 12.5 mls/hr 02/22/22 01:00 02/25/22 12:33 Sod 3.375 gm/ Sodium Chloride IV Infused Q8H URSULA Infusion Protocol Vancomycin/PEG/NADA/Lysine/Water 1,500 mg in 300 mls @ 200 mls/hr 02/22/22 17:00 02/25/22 16:28 Vancocin IV 150 mls/hr Q12H URSULA Administration Insulin Glargine 35 unit 02/23/22 09:00 02/25/22 08:07 Insulin Glargine 100 Units/1 Ml SUBCUT 35 unit BID@0900,2100 URSULA Administration Insulin Human Lispro 0 unit 02/22/22 08:00 02/25/22 11:37 Insulin Lispro 100 Unit/1 Ml SUBCUT Not Given WM&BEDTIME URSULA Protocol Insulin Human Lispro 8 unit 02/22/22 15:00 02/25/22 12:48 Insulin Lispro 100 Unit/1 Ml SUBCUT 8 unit TID URSULA Administration Metoprolol Tartrate 50 mg 02/22/22 09:00 02/25/22 08:09 Metoprolol Tartrate 50 Mg Tablet PO 50 mg BID URSULA Administration Pantoprazole Sodium 40 mg 02/22/22 09:00 02/25/22 08:[address] 40 Mg Tablet PO 40 mg DAILY URSULA Administration Senna/Docusate Sodium 1 tab 02/22/22 09:00 02/25/22 08:08 Sennosides-Docusate Tablet PO 1 tab DAILY URSULA Administration Sodium Hypochlorite 1 applic 02/23/22 08:00 02/25/22 09:18 Sodium Hypochlorite 0.125% Btl 473 Ml TOPICAL Not Given Q12H URSULA PFSH Acute PFSH: Medical History (Updated 02/25/22 @ 17:02 by Ciro Mercedes MD) SHELDON (acute kidney injury) Amputated toe Cellulitis Diabetes Diabetes Foot pain Hypercalcemia Hypertension Peripheral arterial disease Puncture wound Surgical History H/O toe surgery Family History Other Diabetes Social History Smoking and tobacco status: never smoked Alcohol intake: never Vitals/I&O/Wt Last Vital Signs Temp 99.6 F 02/25/22 15:45 Pulse 96 02/25/22 15:45 Resp 16 02/25/22 15:45 BP 175/72 02/25/22 15:45 Pulse Ox 93 02/25/22 15:45 02/25/22 02/25/22 02/25/22 06:59 14:59 22:59 Intake Total 1979 1537.5 / 1537.5 Output Total 0 1452 750 / 750 Balance 290 / 528 787.5 / 787.5 Physical Exam Narrative: GENERAL: General he is lying flat on his back in bed complaining of some pain in the right foot HEENT: Exam within normal limits. NECK: Supple without jugular vein distention. The carotid upstroke is normal without bruits. BACK: Exam normal. LUNGS: Clear. HEART: Regular rate and rhythm. ABDOMEN: Benign without organomegaly or tenderness. EXTREMITIES: No edema. The right foot is bandaged and was not removed. There is absence of 2 toes on the left foot. NEUROLOGIC: Exam normal. SKIN: Unremarkable. Data : 02/25/22 08:48 02/25/22 08:48 Micro: Microbiology 02/22/22 14:47 Gram Stain - Final Toe - Right Anaerobic Culture - Preliminary Tissue Culture - Final Strep agalactiae - (group b) 02/22/22 14:47 Gram Stain - Final Other Source Anaerobic Culture - Preliminary Wound Culture - Final Strep agalactiae - (group b) 02/24/22 16:04 Gram Stain - Final Foot - Right 02/24/22 16:04 Gram Stain - Final Other Source A&P Assessment and plan (1) Diabetic foot infection: Status: Acute (2) Hypertension: Status: Acute (3) Diabetes: Status: Acute (4) Leukocytosis: Status: Acute (5) Sepsis: Status: Acute (6) Cellulitis of foot, right: Status: Acute (7) Peripheral arterial disease: Status: Acute Plan We make an attempt at revascularization early next week. We will have to stop the apixaban in advance. It should be stopped sometime tomorrow if it is going to be done on Monday. Consult Attestations Medical Necessity Statement: Needs continued hospitalization for treatment of abscess, osteomyelitis and infection of the right lower extremity. Currently there is no evidence of critical limb ischemia. Coding Level of Care Code New Pt Acute Card Cutter Helper for g Fwd Patient Type New Exam Detailed Medical Decision Making Moderate Complexity Diagnoses Diabetic foot infection E11.628; L08.9 Hypertension I10 Diabetes E11.9 Leukocytosis D72.829 Sepsis A41.9 Cellulitis of foot, right L03.115 Peripheral arterial disease I73.9
[2022-02-25 20:04] LABS: Glucose Point of Care 214 mg/dL (70-110)
[2022-02-26] VITALS (13 sets, daily range): BP systolic 128–169; BP diastolic 73–89; PULSE 68–101; RESP 15–18; TEMP 36.7–37.8; O2SAT 94–97
[2022-02-26] MEDS: acetaminophen 500 mg Tablet PO (00:15)
[2022-02-26] MEDS: HYDROmorphone 1 mg/mL INJ 1 mL 0.2 MG IVP ×5 (00:16→23:07)
[2022-02-26] MEDS: sodium chloride 0.9% 1,000 ML 75 ML IV ×2 (02:15→16:59)
[2022-02-26] MEDS: piperacillin-tazobactam 3.375 GM in sodium chloride 0.9% (plus) 50 ML IV ×3 (02:15→19:26)
[2022-02-26 03:08] LABS: Basophils # 0.1 10^3/uL (0.0-0.1); Basophils % 0.6 %; Eosinophils # 0.5 10^3/uL (0.0-0.8); Eosinophils % 3.4 %; Hematocrit 35.3 % (42.0-52.0); Hemoglobin 10.8 g/dL (11.7-16.6); Lymphocytes # 2.8 10^3/uL (0.8-4.8); Mean Corpuscular HGB Conc 30.6 g/dL (30.0-36.0); Mean Corpuscular Volume 84.9 fl (80-94); Mean Platelet Volume 9.5 fL (7.4-10.4); Monocytes % 6.5 %; Neutrophils # 10.18 10^3/uL (1.8-7.7); Neutrophils % 68.7 %; Nucleated Red Blood Cells % 0 %; Platelet Count 462 10^3/cmm (130-400); Red Blood Count 4.16 10^6/uL (4.1-5.3); Red Cell Distribution Width 14.1 % (12.1-15.1); White Blood Count 14.8 10^3/uL (4.0-10.0)
[2022-02-26 03:32] LABS: Anion Gap 14.4 (5-19); Blood Urea Nitrogen 10 mg/dL (6-20); Calcium 7.8 mg/dL (8.5-10.5); Carbon Dioxide 23 mmol/L (22-29); Chloride 101 mmol/L (98-107); Glomerular Filtration Rate 73.4 mL/min (90-130); Glucose 111 mg/dL (65-115); Magnesium 1.9 mg/dL (1.7-2.3); Osmolality Calculated 280 mOsm/kg (285-295); Potassium 3.4 mmol/L (3.5-5.1); Sodium 135 mmol/L (136-145)
[2022-02-26] MEDS: vancomycin 1,500 MG/300 ML PIGGYBACK 300 MG IV (04:50)
[2022-02-26 06:09] LABS: Glucose Point of Care 105 mg/dL (70-110)
[2022-02-26] MEDS: pantoprazole DR 40 mg Tablet PO (09:06)
[2022-02-26] MEDS: aspirin 81 mg EC Tablet PO (09:06)
[2022-02-26] MEDS: metoprolol tartrate 50 mg Tablet PO ×2 (09:07→17:47)
[2022-02-26] MEDS: insulin glargine 100 units/1 mL 35 UNIT SUBCUT ×2 (09:08→21:08)
[2022-02-26] MEDS: atorvastatin 40 mg Tablet 20 MG PO (09:08)
[2022-02-26] MEDS: apixaban 5 mg Tablet 2.5 MG PO ×2 (09:08→20:19)
[2022-02-26] MEDS: sennosides-docusate Tablet 1 TAB PO (09:08)
--- NOTE | 2022-02-26 09:50 | PC.NURSE ---
Spoke with Dr. Bangura about dressing change for patient. Family reported it has not been changed since surgical procedure. I confirmed the order for daily dressing changes with wet to dry saline soaked Kerlex with an ABD pad and wrapped in THIERRY bandage. Dr. Bangura. Dr. Bangura gave me permission to change the dressing for the patient.
--- NOTE | 2022-02-26 09:55 | PM.PN ---
Subjective Subjective: The patient is feeling okay. He is mainly complaining of pain in the surgical incision site and also in the right leg. No skin discolorations above the ankle. Denies any chest pain or shortness of breath. The vital signs remained stable. Remain afebrile. No other specific complaints. Medications: Medication Review Details: Current Medications Acetaminophen (Acetaminophen 500 Mg Tablet) 500 mg PO Q4H PRN PRN Reason: fever Last Admin: 02/26/22 00:15 Dose: 500 mg Documented by: Albuterol Sulfate (Albuterol 2.5 Mg/0.5 Ml Neb) 2.5 mg INHALATION ONCE PRN PRN Reason: WHEEZING Albuterol/Ipratropium (Ipratropium-Albuterol 3 Ml Neb) 3 ml INHALATION Q6H PRN PRN Reason: SHORTNESS OF BREATH Apixaban (Apixaban 5 Mg Tablet) 2.5 mg PO BID@0900,2100 [facility] Last Admin: 02/26/22 09:08 Dose: 2.5 mg Documented by: Aspirin (Aspirin 81 Mg Ec Tablet) 81 mg PO DAILY [facility] Last Admin: 02/26/22 09:06 Dose: 81 mg Documented by: Atorvastatin Calcium (Atorvastatin 40 Mg Tablet) 20 mg PO DAILY [facility] Last Admin: 02/26/22 09:08 Dose: 20 mg Documented by: Dextrose (Dextrose 50% Syringe 50 Ml) 25 ml IVP ONCE PRN; Protocol PRN Reason: hypoglycemia protocol Dextrose (Dextrose 50% Syringe 50 Ml) 50 ml IVP PRN PRN; Protocol PRN Reason: hypoglycemia protocol Glucagon (Glucagon 1 Mg/Ml Inj 1 Ml) 1 mg IM ONCE PRN; Protocol PRN Reason: Adult Acute Hypoglycemia Prot. Hydromorphone HCl (Hydromorphone 1 Mg/Ml Inj 1 Ml) 0.2 mg IVP Q4H PRN PRN Reason: pain Last Admin: 02/26/22 00:16 Dose: 0.2 mg Documented by: Dextrose (D5w) 500 mls @ 100 mls/hr IV ONCE PRN; Protocol PRN Reason: Adult Acute Hypoglycemia Prot Sodium Chloride (Sodium Chloride 0.9%) 1,000 mls @ 75 mls/hr IV .[id number] [facility] Last Admin: 02/26/22 02:15 Dose: 75 mls/hr Documented by: Piperacillin Sod/Tazobactam (Sod 3.375 gm/ Sodium Chloride) 50 mls @ 12.5 mls/hr IV Q8H [facility]; Protocol Last Infusion: 02/26/22 09:47 Dose: Infused Documented by: Vancomycin/PEG/NADA/Lysine/Water (Vancocin) 1,500 mg in 300 mls @ 200 mls/hr IV Q12H [facility] Last Infusion: 02/26/22 09:53 Dose: Infused Documented by: Insulin Glargine (Insulin Glargine 100 Units/1 Ml) 35 unit SUBCUT BID@0900,2100 [facility] Last Admin: 02/26/22 09:08 Dose: 35 unit Documented by: Insulin Human Lispro (Insulin Lispro 100 Unit/1 Ml) 0 unit SUBCUT WM&BEDTIME [facility]; Protocol Last Admin: 02/26/22 07:17 Dose: Not Given Documented by: Insulin Human Lispro (Insulin Lispro 100 Unit/1 Ml) 8 unit SUBCUT TID [facility] Last Admin: 02/26/22 08:55 Dose: Not Given Documented by: Metoprolol Tartrate (Metoprolol Tartrate 50 Mg Tablet) 50 mg PO BID [facility] Last Admin: 02/26/22 09:07 Dose: 50 mg Documented by: Ondansetron HCl (Ondansetron 2 Mg/Ml Sdv 2 Ml) 4 mg IVP Q6H PRN PRN Reason: NAUSEA AND VOMITING Pantoprazole Sodium (Pantoprazole Dr 40 Mg Tablet) 40 mg PO DAILY [facility] Last Admin: 02/26/22 09:06 Dose: 40 mg Documented by: Senna/Docusate Sodium (Sennosides-Docusate Tablet) 1 tab PO DAILY [facility] Last Admin: 02/26/22 09:08 Dose: 1 tab Documented by: Sodium Hypochlorite (Sodium Hypochlorite 0.125% Btl 473 Ml) 1 applic TOPICAL Q12H [facility] Last Admin: 02/25/22 20:15 Dose: Not Given Documented by: Vitals/I&O/Wt Last Vital Signs Temp 99.0 F 02/26/22 04:00 Pulse 68 02/26/22 09:47 Resp 15 02/26/22 09:47 BP 139/80 02/26/22 07:17 Pulse Ox 94 02/26/22 09:47 02/25/22 02/26/22 02/26/22 22:59 06:59 14:59 Intake Total 750 / 2287.5 1890 / 4177.5 590 / 590 Output Total 1200 / 1950 1100 / 3050 700 / 700 Balance -450 / 337.5 790 / 1127.5 -110 / -110 Physical Exam Narrative: GENERAL: The patient is alert and oriented times three. Not in any acute distress. Seems to be sleepy HEENT: No significant pallor, icterus or lymphadenopathy.Oral cavity: There are no mucous membrane lesions. NECK: Trachea appears to be central. No masses noted. No JVD or thyromegaly appreciated. RESPIRATORY: Chest is symmetrical. No intercostals muscle retraction or any accessory muscle activation. There is no chest wall tenderness. Breath sounds are heard bilaterally. No rales or rhonchi heard. No evidence of any consolidation. BREASTS: Deferred. HEART: The heart sounds are normal. No S3 or S4. No significant murmurs. No pericardial rub ABDOMEN: No vessel pulsations or distention. No tenderness. No organomegaly appreciated. Bowel sounds are normally heard. : Deferred. RECTAL: Deferred. LYMPHATIC: No lymphadenopathy noted in the neck. EXTREMITIES: The right foot has a heavy bandage. A posterior tibial and dorsalis pedis pulse on the left ankle is barely palpable. MUSCULOSKELETAL: No acute joint deformities or swelling SKIN: There are no significant rashes or ecchymosis NEUROPSYCHIATRIC: The patient is alert and oriented x3. Appears to be in a good mood. No tremors or rigidity noted. Data : 02/26/22 02:58 02/26/22 02:58 Other Labs: Laboratory Last Values WBC 14.8 10^3/uL (4.0-10.0) H 02/26/22 02:58 RBC 4.16 10^6/uL (4.1-5.3) 02/26/22 02:58 Hgb 10.8 g/dL (11.7-16.6) L 02/26/22 02:58 Hct 35.3 % (42.0-52.0) L 02/26/22 02:58 MCV 84.9 fl (80-94) 02/26/22 02:58 MCH 26.0 pg (28.0-34.0) L 02/26/22 02:58 MCHC 30.6 g/dL (30.0-36.0) 02/26/22 02:58 RDW 14.1 % (12.1-15.1) 02/26/22 02:58 Plt Count 462 10^3/cmm (130-400) H 02/26/22 02:58 MPV 9.5 fL (7.4-10.4) 02/26/22 02:58 Neut % (Auto) 68.7 % 02/26/22 02:58 Lymph % (Auto) 19.0 % 02/26/22 02:58 [place] % (Auto) 6.5 % 02/26/22 02:58 Eos % (Auto) 3.4 % 02/26/22 02:58 Baso % (Auto) 0.6 % 02/26/22 02:58 Neut # (Auto) 10.18 10^3/uL (1.8-7.7) H 02/26/22 02:58 Lymph # (Auto) 2.8 10^3/uL (0.8-4.8) 02/26/22 02:58 [place] # (Auto) 1.0 10^3/uL (0.2-0.9) H 02/26/22 02:58 Eos # (Auto) 0.5 10^3/uL (0.0-0.8) 02/26/22 02:58 Baso # (Auto) 0.1 10^3/uL (0.0-0.1) 02/26/22 02:58 Nucleated RBC % (auto) 0 % 02/26/22 02:58 Nucleated RBCs # 0.0 /100WBC 02/26/22 02:58 ESR 57 mm/hr (0-10) H 02/21/22 21:28 Sodium 135 mmol/L (136-145) L 02/26/22 02:58 Potassium 3.4 mmol/L (3.5-5.1) L 02/26/22 02:58 Chloride 101 mmol/L (98-107) 02/26/22 02:58 Carbon Dioxide 23 mmol/L (22-29) 02/26/22 02:58 Anion Gap 14.4 (5-19) 02/26/22 02:58 BUN 10 mg/dL (6-20) 02/26/22 02:58 Creatinine 1.1 mg/dL (0.7-1.2) 02/26/22 02:58 GFR Calculation 73.4 mL/min (90-130) L 02/26/22 02:58 Glucose 111 mg/dL (65-115) 02/26/22 02:58 POC Glucose 105 mg/dL (70-110) 02/26/22 06:03 Calculated Osmolality 280 mOsm/kg (285-295) L 02/26/22 02:58 Lactic Acid 2.5 mmol/L (0.5-2.2) H 02/21/22 21:28 Lactic Acid (Sepsis) 1.4 mmol/L (0.5-2.2) 02/22/22 00:45 Lactate 1.3 mmol/L (0.5-2.2) 02/22/22 05:00 Calcium 7.8 mg/dL (8.5-10.5) L 02/26/22 02:58 Magnesium 1.9 mg/dL (1.7-2.3) 02/26/22 02:58 Total Bilirubin 0.4 mg/dL (0.15-1.2) 02/21/22 21:28 AST 6 U/L (0-40) 02/21/22 21:28 ALT 8 U/L (0-41) 02/21/22 21:28 Alkaline Phosphatase 131 IU/L (40-130) H 02/21/22 21:28 C-Reactive Protein 348.9 mg/L (0.0-4.9) H 02/22/22 05:00 Total Protein 8.0 g/dL (6.6-8.7) 02/21/22 21:28 Albumin 3.5 g/dL (3.5-5.2) 02/21/22 21:28 Globulin 4.5 g/dL (1.3-4.6) 02/21/22 21:28 Procalcitonin 0.80 ng/mL (0-0.5) H 02/21/22 21:28 Vancomycin Trough 18.3 ug/mL (10-15) H 02/24/22 04:22 Micro: Microbiology 02/22/22 14:47 Gram Stain - Final Toe - Right Anaerobic Culture - Preliminary Tissue Culture - Final Strep agalactiae - (group b) 02/22/22 14:47 Gram Stain - Final Other Source Anaerobic Culture - Preliminary Wound Culture - Final Strep agalactiae - (group b) 02/24/22 16:04 Gram Stain - Final Foot - Right 02/24/22 16:04 Gram Stain - Final Other Source A&P Assessment and plan (1) Diabetic foot infection: Patient status post amputation of the third, fourth and fifth rays. Had evidence of osteomyelitis. Currently he is on multiple antibiotics. Remains afebrile. Status: Acute (2) Hypertension: The blood pressure is fairly under control. May continue on the current medications. Status: Acute (3) Diabetes: Aggressive management of diabetes as per the primary care. Status: Acute (4) Leukocytosis: Most likely related to the infection. Management with antibiotics as per the primary. Status: Acute (5) Cellulitis of foot, right: Patient status post incision and drainage, status post amputation of the third fourth and fifth rays. Clinically seems to be stable. Status: Acute (6) Peripheral arterial disease: Patient was found to have high-grade lesion on the femoral artery on the right side. Possible intervention next week. Status: Acute Plan Patient has been on Eliquis 2.5 mg p.o. twice daily for? Peripheral artery disease. This was discontinued today. Consider doing peripheral arterial intervention on Monday or Monday, based on Dr. Jensen schedule. We will continue on the other occasions. Other problems Mild hypokalemia- Leukocytosis, possibly from sepsis Attestations Medical Necessity Statement*: Deferred to the primary Coding Level of Care Code Acute Mechanism Inspector for Ekaterina Fwrufus History Expanded Problem Focused Exam Detailed Medical Decision Making Moderate Complexity Diagnoses Diabetic foot infection E11.628; L08.9 Hypertension I10 Diabetes E11.9 Leukocytosis D72.829 Cellulitis of foot, right L03.115 Peripheral arterial disease I73.9
[2022-02-26 11:10] LABS: Glucose Point of Care 228 mg/dL (70-110)
[2022-02-26] MEDS: insulin lispro 100 unit/1 mL SUBCUT ×3 (11:37→21:08)
--- NOTE | 2022-02-26 12:18 | PM.PN ---
Subjective Subjective: 41-year-old male admitted for left foot ulcer and osteomyelitis. Reports that he is feeling some better today. States that his dressing has not been changed and it did saturate his bed overnight. He is eating during my examination, and states that his appetite is fine. He reports passing gas and having a bowel movement. States that his pain is well controlled at this time. He denies other problems this morning. Vitals/I&O/Wt Last Vital Signs Temp 98.1 F 02/26/22 11:38 Pulse 84 02/26/22 11:38 Resp 16 02/26/22 10:07 BP 128/73 02/26/22 11:38 Pulse Ox 96 02/26/22 11:38 02/25/22 02/26/22 02/26/22 22:59 06:59 14:59 Intake Total 750 / 2287.5 1890 / 4177.5 590 / 590 Output Total 1200 / 1950 1100 / 3050 700 / 700 Balance -450 / 337.5 790 / 1127.5 -110 / -110 Physical Exam Narrative: General: Cooperative patient in no apparent distress. Well developed. HEENT: Normocephalic, Atraumatic. External ears normal. Nasal passages patent without drainage. MMM. Resp: Lungs clear to auscultation. No respiratory distress, no use of accessory muscles. No rales, rhonchi or wheezes. Heart: Regular rate and rhythm. No rubs, gallops, murmurs. Abd: Soft, nontender, non-distended. Normal bowel sounds all 4 quadrants. Extremities: Right lower extremity with dressings in place. No lower extremity edema. Skin: No rash or lesions on exposed areas. Data : 02/26/22 02:58 02/26/22 02:58 Micro: Microbiology 02/24/22 16:04 Gram Stain - Final Other Source Anaerobic Culture - Preliminary Wound Culture - Preliminary Strep agalactiae - (group b) 02/22/22 14:47 Gram Stain - Final Other Source Anaerobic Culture - Preliminary Wound Culture - Final Strep agalactiae - (group b) 02/22/22 14:47 Gram Stain - Final Toe - Right Anaerobic Culture - Preliminary Tissue Culture - Final Strep agalactiae - (group b) 02/24/22 16:04 Gram Stain - Final Foot - Right Tissue Culture - Preliminary Strep agalactiae - (group b) A&P Assessment and plan (1) Diabetic foot infection: Status: Acute (2) Hypertension: Status: Acute (3) Diabetes: Status: Acute (4) Peripheral arterial disease: Status: Acute (5) SHELDON (acute kidney injury): Status: Acute (6) Hyponatremia: Status: Acute Plan 41-year-old male admitted for nonhealing, infected diabetic foot ulcer, he is status post 3rd through 5th rays. Vitals are currently stable. Surgical specimen is pending. His wound culture was positive for group B strep. We will continue Vanc and Zosyn until other cultures are available. Blood cultures negative to date. Discussed with nursing today and we will go ahead and change dressings, as they have been saturated. White blood cell count is improving. Renal function is stable. Hyponatremia has improved to 135. We will continue IV fluids at this time. Continue insulin regimen and Accu-Cheks. Cardiology is planning for revascularization next week. They request to stop his Eliquis tomorrow in preparation for the procedure. IVF: NS@75 DVT PPx: Eliquis GI PPx: None O2: Room air Diet: Diabetic diet Attestations Medical Necessity Statement*: Continued inpatient treatment for osteomyelitis of the right foot, postsurgical management, revascularization, uncontrolled diabetes, IV antibiotics. Coding Level of Care Code Acute Web Production Artist for Ekaterina Cisneros Diagnoses Diabetic foot infection E11.628; L08.9 Hypertension I10 Diabetes E11.9 Peripheral arterial disease I73.9 SHELDON (acute kidney injury) N17.9 Hyponatremia E87.1
[2022-02-26 16:49] LABS: Glucose Point of Care 272 mg/dL (70-110)
[2022-02-26 17:02] LABS: Vancomycin Trough 18.5 ug/mL (10-15)
[2022-02-26] MEDS: vancomycin 1,500 MG/300 ML PIGGYBACK 200 MG IV (17:03)
[2022-02-26 20:16] LABS: Glucose Point of Care 183 mg/dL (70-110)
[2022-02-26] MEDS: sodium hypochlorite 0.125% Btl 473 mL 1 APPLIC TOPICAL (20:20)
[2022-02-26 20:32] LABS: Glucose Point of Care 172 mg/dL (70-110)
[2022-02-26] MEDS: insulin lispro 100 unit/1 mL 8 UNIT SUBCUT (21:08)
[2022-02-27] VITALS (10 sets, daily range): BP systolic 137–160; BP diastolic 71–83; PULSE 75–96; RESP 16–18; TEMP 36.6–38.1; O2SAT 95–98
[2022-02-27] MEDS: piperacillin-tazobactam 3.375 GM in sodium chloride 0.9% (plus) 50 ML IV ×2 (03:30→08:11)
[2022-02-27] MEDS: HYDROmorphone 1 mg/mL INJ 1 mL 0.2 MG IVP ×5 (04:00→20:42)
--- NOTE | 2022-02-27 04:23 | PC.NURSE ---
[place] put on hold per Dr. Bangura's progress note to hold for revascularization next week. Resume order will need adjusted once restart date is known. Will notify day shift nurse.
[2022-02-27] MEDS: sodium chloride 0.9% 1,000 ML 75 ML IV ×2 (06:03→17:19)
[2022-02-27 06:32] LABS: Glucose Point of Care 227 mg/dL (70-110)
[2022-02-27] MEDS: insulin lispro 100 unit/1 mL SUBCUT ×3 (08:10→20:45)
[2022-02-27] MEDS: atorvastatin 40 mg Tablet 20 MG PO (08:11)
[2022-02-27] MEDS: pantoprazole DR 40 mg Tablet PO (08:11)
[2022-02-27] MEDS: sennosides-docusate Tablet 1 TAB PO (08:11)
[2022-02-27] MEDS: metoprolol tartrate 50 mg Tablet PO ×2 (08:11→17:19)
[2022-02-27] MEDS: aspirin 81 mg EC Tablet PO (08:11)
[2022-02-27] MEDS: insulin lispro 100 unit/1 mL 8 UNIT SUBCUT ×3 (08:13→20:45)
[2022-02-27] MEDS: insulin glargine 100 units/1 mL 35 UNIT SUBCUT ×2 (08:16→20:46)
[2022-02-27] MEDS: sodium hypochlorite 0.125% Btl 473 mL 1 APPLIC TOPICAL ×2 (08:16→19:43)
[2022-02-27 11:16] LABS: Glucose Point of Care 135 mg/dL (70-110)
--- NOTE | 2022-02-27 12:18 | PM.PN ---
Subjective Subjective: Patient reports feeling ok today. Continues to have some pain in his foot. Dressings changed yesterday. He is eating well and drinking. Denies issues with voiding. Has had 2 BM's yesterday. Vancomycin held yesterday due to elevated trough. Cardiology has planned for revascularization this week. Medications: Reviewed: Yes Vitals/I&O/Wt Last Vital Signs Temp 97.9 F 02/27/22 03:58 Pulse 82 02/27/22 11:22 Resp 16 02/27/22 12:07 BP 137/71 02/27/22 11:22 Pulse Ox 96 02/27/22 11:22 02/26/22 02/27/22 02/27/22 22:59 06:59 14:59 Intake Total 1300 / 2130 1050 / 3180 410 / 410 Output Total 1400 / 2100 1050 / 3150 825 / 825 Balance -100 / 30 0 / 30 -415 / -415 Physical Exam Narrative: General: Cooperative patient in no apparent distress. Well developed. HEENT: Normocephalic, Atraumatic. External ears normal. Nasal passages patent without drainage. MMM. Resp: Lungs clear to auscultation. No respiratory distress, no use of accessory muscles. No rales, rhonchi or wheezes. Heart: Regular rate and rhythm. No rubs, gallops, murmurs. Abd: Soft, nontender, non-distended. Normal bowel sounds all 4 quadrants. Extremities: Right lower extremity with dressings in place. No lower extremity edema. Skin: No rash or lesions on exposed areas. Data : 02/26/22 02:58 02/26/22 02:58 Micro: Microbiology 02/24/22 16:04 Gram Stain - Final Foot - Right Tissue Culture - Preliminary Strep agalactiae - (group b) 02/24/22 16:04 Gram Stain - Final Other Source Anaerobic Culture - Preliminary Wound Culture - Preliminary Strep agalactiae - (group b) 02/21/22 21:20 Blood Culture - Final Blood NO GROWTH AFTER 5 DAYS 02/21/22 21:26 Blood Culture - Final Blood NO GROWTH AFTER 5 DAYS 02/22/22 14:47 Gram Stain - Final Other Source Anaerobic Culture - Preliminary Wound Culture - Final Strep agalactiae - (group b) 02/22/22 14:47 Gram Stain - Final Toe - Right Anaerobic Culture - Preliminary Tissue Culture - Final Strep agalactiae - (group b) A&P Assessment and plan (1) Peripheral arterial disease: Status: Acute (2) Diabetic foot infection: Status: Acute (3) Hypertension: Status: Acute (4) Diabetes: Status: Acute (5) Hyponatremia: Status: Acute Plan 41-year-old male admitted for nonhealing, infected diabetic foot ulcer, he is status post 3rd through 5th rays. Vitals are currently stable. Sugars remain elevated. Continue SSI and other meds. Surgical specimen is pending.? His wound culture was positive for group B strep.? Restart Vanc, continue Zosyn for now. ? Blood cultures negative to date. Continue q24h dressing changes. Recheck labs today. Renal function is stable.? Hyponatremia has improved to 135.? We will continue IV fluids at this time. Cardiology is planning for revascularization in next 1-2 days. ? Stopped Eliquis today per their recommendations. IVF: NS@75 DVT PPx: Eliquis - Will hold today for procedure. GI PPx: None O2: Room air Diet: Diabetic diet Attestations Medical Necessity Statement*: Continued inpatient treatment for osteomyelitis of the right foot, postsurgical management, revascularization, uncontrolled diabetes, IV antibiotics. Coding Level of Care Code Acute Hand Spray Operator for Ekaterina Cisneros Diagnoses Peripheral arterial disease I73.9 Diabetic foot infection E11.628; L08.9 Hypertension I10 Diabetes E11.9 Hyponatremia E87.1
--- NOTE | 2022-02-27 14:05 | XRR_ITS ---
PROCEDURE INFORMATION: Exam: XR Left Elbow Exam date and time: 02/27/2022 2:25 PM Age: 41 years old Clinical indication: Pain; Elbow; Left; Additional info: Worsening elbow pain TECHNIQUE: Imaging protocol: XR Left elbow. Views: 1 or 2 views. COMPARISON: No relevant prior studies available. FINDINGS: Bones/joints: Minimal distal triceps tendon degenerative calcification. Soft tissues: Soft tissue swelling about the elbow with a possible anterior sail sign suggestive of a joint effusion which can be associated with an occult fracture, typically in the region of the radius in an adult patient, no such fractures seen on this exam. Consider follow-up exam in 5-7 days. Infection may also be a consideration given the soft tissue swelling, please correlate clinically. XR/XR elbow LT 2V 22500 IMPRESSION: 1. Soft tissue swelling about the elbow with a possible anterior sail sign suggestive of a joint effusion which can be associated with an occult fracture, typically in the region of the radius in an adult patient, no such fractures seen on this exam. Consider follow-up exam in 5-7 days. Infection may also be a consideration given the soft tissue swelling, please correlate clinically. 2. Minimal distal triceps tendon degenerative calcification.
[2022-02-27] MEDS: vancomycin 1,500 MG/300 ML PIGGYBACK 200 MG IV (16:26)
[2022-02-27 16:52] LABS: Glucose Point of Care 162 mg/dL (70-110)
--- NOTE | 2022-02-27 16:53 | PM.PN ---
Subjective Subjective: The patient is feeling okay with no chest pain or chest tightness. No unusual shortness of breath. No fever or chills. No other specific complaints. Right leg pain is mainly confined to the surgical incision site. Minimal swelling of the right lower extremity. Medications: Medication Review Details: Current Medications Acetaminophen (Acetaminophen 500 Mg Tablet) 500 mg PO Q4H PRN PRN Reason: fever Last Admin: 02/26/22 00:15 Dose: 500 mg Documented by: Albuterol Sulfate (Albuterol 2.5 Mg/0.5 Ml Neb) 2.5 mg INHALATION ONCE PRN PRN Reason: WHEEZING Albuterol/Ipratropium (Ipratropium-Albuterol 3 Ml Neb) 3 ml INHALATION Q6H PRN PRN Reason: SHORTNESS OF BREATH Apixaban (Apixaban 5 Mg Tablet) 2.5 mg PO BID@0900,2100 [facility] Last Admin: 02/26/22 20:19 Dose: 2.5 mg Documented by: Aspirin (Aspirin 81 Mg Ec Tablet) 81 mg PO DAILY [facility] Last Admin: 02/27/22 08:11 Dose: 81 mg Documented by: Atorvastatin Calcium (Atorvastatin 40 Mg Tablet) 20 mg PO DAILY [facility] Last Admin: 02/27/22 08:11 Dose: 20 mg Documented by: Dextrose (Dextrose 50% Syringe 50 Ml) 25 ml IVP ONCE PRN; Protocol PRN Reason: hypoglycemia protocol Dextrose (Dextrose 50% Syringe 50 Ml) 50 ml IVP PRN PRN; Protocol PRN Reason: hypoglycemia protocol Glucagon (Glucagon 1 Mg/Ml Inj 1 Ml) 1 mg IM ONCE PRN; Protocol PRN Reason: Adult Acute Hypoglycemia Prot. Hydromorphone HCl (Hydromorphone 1 Mg/Ml Inj 1 Ml) 0.2 mg IVP Q4H PRN PRN Reason: pain Last Admin: 02/27/22 16:24 Dose: 0.2 mg Documented by: Dextrose (D5w) 500 mls @ 100 mls/hr IV ONCE PRN; Protocol PRN Reason: Adult Acute Hypoglycemia Prot Sodium Chloride (Sodium Chloride 0.9%) 1,000 mls @ 75 mls/hr IV .[id number] [facility] Last Admin: 02/27/22 06:03 Dose: 75 mls/hr Documented by: Piperacillin Sod/Tazobactam (Sod 3.375 gm/ Sodium Chloride) 50 mls @ 12.5 mls/hr IV Q8H [facility]; Protocol Last Infusion: 02/27/22 13:30 Dose: Infused Documented by: Vancomycin/PEG/NADA/Lysine/Water (Vancocin) 1,500 mg in 300 mls @ 200 mls/hr IV Q12H [facility] Last Admin: 02/27/22 16:26 Dose: 200 mls/hr Documented by: Insulin Glargine (Insulin Glargine 100 Units/1 Ml) 35 unit SUBCUT BID@0900,2100 [facility] Last Admin: 02/27/22 08:16 Dose: 35 unit Documented by: Insulin Human Lispro (Insulin Lispro 100 Unit/1 Ml) 0 unit SUBCUT WM&BEDTIME [facility]; Protocol Last Admin: 02/27/22 11:18 Dose: Not Given Documented by: Insulin Human Lispro (Insulin Lispro 100 Unit/1 Ml) 8 unit SUBCUT TID [facility] Last Admin: 02/27/22 13:53 Dose: 8 unit Documented by: Metoprolol Tartrate (Metoprolol Tartrate 50 Mg Tablet) 50 mg PO BID [facility] Last Admin: 02/27/22 08:11 Dose: 50 mg Documented by: Ondansetron HCl (Ondansetron 2 Mg/Ml Sdv 2 Ml) 4 mg IVP Q6H PRN PRN Reason: NAUSEA AND VOMITING Pantoprazole Sodium (Pantoprazole Dr 40 Mg Tablet) 40 mg PO DAILY [facility] Last Admin: 02/27/22 08:11 Dose: 40 mg Documented by: Senna/Docusate Sodium (Sennosides-Docusate Tablet) 1 tab PO DAILY [facility] Last Admin: 02/27/22 08:11 Dose: 1 tab Documented by: Sodium Hypochlorite (Sodium Hypochlorite 0.125% Btl 473 Ml) 1 applic TOPICAL Q12H [facility] Last Admin: 02/27/22 08:16 Dose: 1 applic Documented by: Vitals/I&O/Wt Last Vital Signs Temp 98.1 F 02/27/22 15:45 Pulse 75 02/27/22 15:45 Resp 18 02/27/22 15:45 BP 142/71 02/27/22 15:45 Pulse Ox 95 02/27/22 15:45 05/08/22 05/08/22 05/08/22 06:59 14:59 22:59 Intake Total 1050 / 3180 700 / 700 0 / 700 Output Total 1050 / 3150 1675 / 1675 Balance 0 / 30 -975 / -975 0 / -975 Physical Exam Narrative: GENERAL: The patient is alert and oriented times three. Not in any acute distress. Seems to be sleepy HEENT: No significant pallor, icterus or lymphadenopathy.Oral cavity: There are no mucous membrane lesions. NECK: Trachea appears to be central. No masses noted. No JVD or thyromegaly appreciated. RESPIRATORY: Chest is symmetrical. No intercostals muscle retraction or any accessory muscle activation. There is no chest wall tenderness. Breath sounds are heard bilaterally. No rales or rhonchi heard. No evidence of any consolidation. BREASTS: Deferred. HEART: The heart sounds are normal. No S3 or S4. No significant murmurs. No pericardial rub ABDOMEN: No vessel pulsations or distention. No tenderness. No organomegaly appreciated. Bowel sounds are normally heard. : Deferred. RECTAL: Deferred. LYMPHATIC: No lymphadenopathy noted in the neck. EXTREMITIES: The right foot has a heavy bandage. A posterior tibial and dorsalis pedis pulse on the left ankle is barely palpable. MUSCULOSKELETAL: No acute joint deformities or swelling SKIN: There are no significant rashes or ecchymosis NEUROPSYCHIATRIC: The patient is alert and oriented x3. Appears to be in a good mood. No tremors or rigidity noted. Data : 02/26/22 02:58 02/26/22 02:58 Other Labs: Laboratory Last Values WBC 14.8 10^3/uL (4.0-10.0) H 02/26/22 02:58 RBC 4.16 10^6/uL (4.1-5.3) 02/26/22 02:58 Hgb 10.8 g/dL (11.7-16.6) L 02/26/22 02:58 Hct 35.3 % (42.0-52.0) L 02/26/22 02:58 MCV 84.9 fl (80-94) 02/26/22 02:58 MCH 26.0 pg (28.0-34.0) L 02/26/22 02:58 MCHC 30.6 g/dL (30.0-36.0) 02/26/22 02:58 RDW 14.1 % (12.1-15.1) 02/26/22 02:58 Plt Count 462 10^3/cmm (130-400) H 02/26/22 02:58 MPV 9.5 fL (7.4-10.4) 02/26/22 02:58 Neut % (Auto) 68.7 % 02/26/22 02:58 Lymph % (Auto) 19.0 % 02/26/22 02:58 [place] % (Auto) 6.5 % 02/26/22 02:58 Eos % (Auto) 3.4 % 02/26/22 02:58 Baso % (Auto) 0.6 % 02/26/22 02:58 Neut # (Auto) 10.18 10^3/uL (1.8-7.7) H 02/26/22 02:58 Lymph # (Auto) 2.8 10^3/uL (0.8-4.8) 02/26/22 02:58 [place] # (Auto) 1.0 10^3/uL (0.2-0.9) H 02/26/22 02:58 Eos # (Auto) 0.5 10^3/uL (0.0-0.8) 02/26/22 02:58 Baso # (Auto) 0.1 10^3/uL (0.0-0.1) 02/26/22 02:58 Nucleated RBC % (auto) 0 % 02/26/22 02:58 Nucleated RBCs # 0.0 /100WBC 02/26/22 02:58 ESR 57 mm/hr (0-10) H 02/21/22 21:28 Sodium 135 mmol/L (136-145) L 02/26/22 02:58 Potassium 3.4 mmol/L (3.5-5.1) L 02/26/22 02:58 Chloride 101 mmol/L (98-107) 02/26/22 02:58 Carbon Dioxide 23 mmol/L (22-29) 02/26/22 02:58 Anion Gap 14.4 (5-19) 02/26/22 02:58 BUN 10 mg/dL (6-20) 02/26/22 02:58 Creatinine 1.1 mg/dL (0.7-1.2) 02/26/22 02:58 GFR Calculation 73.4 mL/min (90-130) L 02/26/22 02:58 Glucose 111 mg/dL (65-115) 02/26/22 02:58 POC Glucose 162 mg/dL (70-110) H 02/27/22 16:45 Calculated Osmolality 280 mOsm/kg (285-295) L 02/26/22 02:58 Lactic Acid 2.5 mmol/L (0.5-2.2) H 02/21/22 21:28 Lactic Acid (Sepsis) 1.4 mmol/L (0.5-2.2) 02/22/22 00:45 Lactate 1.3 mmol/L (0.5-2.2) 02/22/22 05:00 Calcium 7.8 mg/dL (8.5-10.5) L 02/26/22 02:58 Magnesium 1.9 mg/dL (1.7-2.3) 02/26/22 02:58 Total Bilirubin 0.4 mg/dL (0.15-1.2) 02/21/22 21:28 AST 6 U/L (0-40) 02/21/22 21:28 ALT 8 U/L (0-41) 02/21/22 21:28 Alkaline Phosphatase 131 IU/L (40-130) H 02/21/22 21:28 C-Reactive Protein 348.9 mg/L (0.0-4.9) H 02/22/22 05:00 Total Protein 8.0 g/dL (6.6-8.7) 02/21/22 21:28 Albumin 3.5 g/dL (3.5-5.2) 02/21/22 21:28 Globulin 4.5 g/dL (1.3-4.6) 02/21/22 21:28 Procalcitonin 0.80 ng/mL (0-0.5) H 02/21/22 21:28 Vancomycin Trough 18.5 ug/mL (10-15) H 02/26/22 15:58 Micro: Microbiology 02/24/22 16:04 Gram Stain - Final Other Source Anaerobic Culture - Preliminary Wound Culture - Preliminary Strep agalactiae - (group b) 02/22/22 14:47 Gram Stain - Final Toe - Right Anaerobic Culture - Preliminary Tissue Culture - Final Strep agalactiae - (group b) 02/22/22 14:47 Gram Stain - Final Other Source Anaerobic Culture - Preliminary Wound Culture - Final Strep agalactiae - (group b) 02/24/22 16:04 Gram Stain - Final Foot - Right Tissue Culture - Preliminary Strep agalactiae - (group b) 02/21/22 21:20 Blood Culture - Final Blood NO GROWTH AFTER 5 DAYS 02/21/22 21:26 Blood Culture - Final Blood NO GROWTH AFTER 5 DAYS A&P Assessment and plan (1) Peripheral arterial disease: Patient was found to have high-grade lesion on the femoral artery on the right side. Possible intervention next week. Eliquis is on hold at this time. Stable intervention on Monday Status: Acute (2) Diabetic foot infection: Patient status post amputation of the third, fourth and fifth rays. Had evidence of osteomyelitis. Currently he is on multiple antibiotics. Remains afebrile. Status: Acute (3) Hypertension: The blood pressure is fairly under control. May continue on the current medications. Status: Acute (4) Diabetes: Aggressive management of diabetes as per the primary care. Status: Acute (5) Leukocytosis: Most likely related to the infection. Management with antibiotics as per the primary. Status: Acute (6) Cellulitis of foot, right: Patient status post incision and drainage, status post amputation of the third fourth and fifth rays. Clinically seems to be stable. Status: Acute Plan Mild hypokalemia-requires potassium supplement Leukocytosis, possibly from sepsis Attestations Medical Necessity Statement*: Patient requires continued hospital stay for close monitoring and further management Coding Level of Care Code Acute Certified Flight Instructor for Ekaterina Fwrufus History Expanded Problem Focused Exam Detailed Medical Decision Making Moderate Complexity Diagnoses Diabetic foot infection E11.628; L08.9 Hypertension I10 Diabetes E11.9 Leukocytosis D72.829 Cellulitis of foot, right L03.115 Peripheral arterial disease I73.9
[2022-02-27] MEDS: piperacillin-tazobactam 3.375 GM in sodium chloride 0.9% (plus) 100 ML IV (19:41)
[2022-02-27 20:47] LABS: Glucose Point of Care 231 mg/dL (70-110)
[2022-02-28] VITALS (10 sets, daily range): BP systolic 116–161; BP diastolic 73–87; PULSE 79–90; RESP 16–20; TEMP 36.8–37.2; O2SAT 94–97
[2022-02-28] MEDS: HYDROmorphone 1 mg/mL INJ 1 mL 0.2 MG IVP ×4 (00:47→17:03)
[2022-02-28] MEDS: piperacillin-tazobactam 3.375 GM in sodium chloride 0.9% (plus) 100 ML IV ×3 (03:34→20:09)
--- NOTE | 2022-02-28 04:18 | NUR.SHIFT ---
Patient rested in bed throughout shift. Pain controlled with prn medications. IV in right forearm infusing ns at 75ml/hr per orders. Accucheck done with insulin administered. at patient's bedside throughout shift. NPO since midnight 02/28/22 for revascularization procedure. Dressing on right foot dry and intact, changed on day shift. Iv also used to infuse antibiotics. Continent and voided via urinal this shift.
[2022-02-28] MEDS: vancomycin 1,500 MG/300 ML PIGGYBACK 200 MG IV ×2 (04:49→17:28)
[2022-02-28 06:35] LABS: Glucose Point of Care 116 mg/dL (70-110)
[2022-02-28] MEDS: sodium chloride 0.9% 1,000 ML 75 ML IV ×2 (06:41→20:09)
[2022-02-28] MEDS: metoprolol tartrate 50 mg Tablet PO ×2 (08:57→17:29)
[2022-02-28] MEDS: sodium hypochlorite 0.125% Btl 473 mL 1 APPLIC TOPICAL ×2 (08:59→20:12)
[2022-02-28 11:55] LABS: Glucose Point of Care 105 mg/dL (70-110)
--- NOTE | 2022-02-28 11:55 | PM.PN ---
Subjective Subjective: Seen this AM. Patient appears comfortable in bed. He states that the foreign language teacher came to speak to him and he will be going for his angiogram today in a few hours. Patient is n.p.o. at bedside. He says his elbow pain is also better. Vitals/I&O/Wt Last Vital Signs Temp 98.6 F 02/28/22 07:05 Pulse 80 02/28/22 07:32 Resp 16 02/28/22 07:32 BP 151/73 02/28/22 07:05 Pulse Ox 97 02/28/22 07:32 02/27/22 02/28/22 02/28/22 22:59 06:59 14:59 Intake Total 1385 / 2085 1400 / 3485 100 / 100 Output Total 1250 / 2925 1000 / 3925 Balance 135 / -840 400 / -440 100 / 100 Physical Exam Narrative: General: Alert oriented x3, patient seen laying in bed Cardio: Regular rate rhythm, normal S1-S2, Respiratory: Good bilateral air entry, no wheezes no rhonchi appreciated GI: Abdomen soft, nontender, nondistended, bowel sounds + Extremities: right foot wrapped with bandage Data : 02/26/22 02:58 02/26/22 02:58 Micro: Microbiology 02/22/22 14:47 Gram Stain - Final Other Source Anaerobic Culture - Preliminary Wound Culture - Final Strep agalactiae - (group b) 02/22/22 14:47 Gram Stain - Final Toe - Right Anaerobic Culture - Preliminary Tissue Culture - Final Strep agalactiae - (group b) 02/24/22 16:04 Gram Stain - Final Other Source Anaerobic Culture - Preliminary Wound Culture - Final Strep agalactiae - (group b) 02/24/22 16:04 Gram Stain - Final Foot - Right Tissue Culture - Final Strep agalactiae - (group b) A&P Assessment and plan (1) Peripheral arterial disease: Status: Acute (2) Diabetic foot infection: Status: Acute (3) SHELDON (acute kidney injury): Status: Acute (4) Hypertension: Status: Acute (5) Diabetes: Status: Acute (6) Leukocytosis: Status: Acute (7) Sepsis: Status: Acute (8) Cellulitis of foot, right: Status: Acute (9) Hyponatremia: Status: Acute Plan #Peripheral arterial disease #Sepsis secondary to osteomyelitis 3-5th metatarsals and cellulitis, nonhealing diabetic foot ulcer right plantar surface (Pt tachycardic, febrile at admission, with evidence of end organ dysfunction (Acute kidney injury), elevated wbc [id number] at admission #Pt s/p I&D, and extensive debridement of right foot wound with amputation of 3rd, 4th, 5th toe) #Mild SHELDON on CKD secondary to sepsis on admission #Poorly controlled type 2 diabetes mellitus complicated by hyperglycemia #Dehydration? - improved #History of amputated toe #Hyponatremia - resolved ?Continue vancomycin and Zosyn for now. So far preliminary cultures are growing group B strep. Bone cultures pending. ? Continue IV fluids ? SHELDON resolved ? MRI did show osteomyelitis with sinus tracts. Patient is status post incision and drainage with general surgery and extensive debridement with orthopedic surgery. ? Arterial Dopplers and CT abdomen runoff completed. Patient has multiple high levels of high-grade stenosis on right side. Patient will be going for a angiogram today. ? Tight glucose control and nutrition to be optimized. Patient has been advised to take protein shakes. ? Eventually after discharge he will follow-up with infectious disease doctor in [place] after discharge. Full code Attestations Medical Necessity Statement*: Going for angiogram of right leg today. Awaiting bone cultures. Patient will need continued management of this was ulcer and peripheral arterial disease. I expect him to stay in the hospital another 48 to 72 hours. Coding Level of Care Code Acute Neurosurgery Research Director for [facility] Diagnoses Peripheral arterial disease I73.9 Diabetic foot infection E11.628; L08.9 SHELDON (acute kidney injury) N17.9 Hypertension I10 Diabetes E11.9 Leukocytosis D72.829 Sepsis A41.9 Cellulitis of foot, right L03.115 Hyponatremia E87.1
[2022-02-28] MEDS: insulin lispro 100 unit/1 mL 8 UNIT SUBCUT ×2 (13:07→20:46)
[2022-02-28 17:10] LABS: Glucose Point of Care 128 mg/dL (70-110)
[2022-02-28 20:39] LABS: Glucose Point of Care 157 mg/dL (70-110)
[2022-02-28] MEDS: insulin lispro 100 unit/1 mL SUBCUT (20:45)
[2022-02-28] MEDS: insulin glargine 100 units/1 mL 35 UNIT SUBCUT (20:46)
[2022-02-28] MEDS: acetaminophen 500 mg Tablet PO (22:15)
[2022-03-01] VITALS (28 sets, daily range): BP systolic 118–178; BP diastolic 75–109; PULSE 2–100; RESP 10–28; TEMP 36.3–37.4; O2SAT 93–98
[2022-03-01] MEDS: piperacillin-tazobactam 3.375 GM in sodium chloride 0.9% (plus) 100 ML IV (03:21)
[2022-03-01] MEDS: acetaminophen 500 mg Tablet PO (03:22)
[2022-03-01 05:16] LABS: Vancomycin Trough 15.6 ug/mL (10-15)
[2022-03-01] MEDS: vancomycin 1,500 MG/300 ML PIGGYBACK 200 MG IV (05:38)
--- NOTE | 2022-03-01 05:50 | PC.NURSE ---
Groin shave and cleanse done for procedure today.
--- NOTE | 2022-03-01 05:54 | XACV_ITS ---
Ht: 185 cm Wt: 109 kg BSA: 2.40 m2 Any Known Allergies: No known allergies Gender: Male : 1980 Exam Type: Invasive Peripheral Vascular Procedure(s): Procedure Description: Peripheral Cath Diagnostic Procedure Procedure Description: Abdominal aortic angiography Procedure Description: Lower extremities' angiography Exam Priority: Routine Abdominal Diagnostic Findings Distal Aorta: Patent. Lower Extremity Diagnostic Findings Right common iliac artery: Patent bilateral common iliac arteries Right external iliac artery: Patent Right common femoral artery: Patent Right profunda: Patent Right SFA: Patent Right popliteal artery: Patent Right TP trunk: Patent Right anterior tibial artery: Occluded. Reconstitutes via collaterals in the distal segment. Patient has two-vessel runoff with patent posterior tibial and peroneal artery.. INDICATION: Right lower extremity claudication/osteomyelitis/ peripheral artery disease. Conclusions Patent right lower extremity vasculature. Patent iliac stents. Occluded right anterior tibial artery. Recommendations Medical therapy. Hemodynamic Data Phase:Rest AO : 162.0 / 70.0 ( 99.0 ) @ 7:32:00 AM 122.0 / 76.0 ( 98.0 ) @ 7:33:00 AM 120.0 / 80.0 ( 99.0 ) @ 7:39:00 AM 123.0 / 80.0 ( 101.0 ) @ 7:44:00 AM Access Site Site: Left Femoral artery Sheath Size: 6 Fr Hemost... Method: Manual Compression Hemost... Success: Successful Procedure Details Findings Procedure Consent Obtained. Pre-Procedure Time Out. Identified patient by full name and date of as verbalized by the patient/guarantor. Does the consent match the physician's order: Yes. Accurate & Complete Informed Consent: Yes. Inpatient/Outpatient History & Physical on Chart: Yes. If H&P is completed, is and addenduem needed: No; If yes, is the addendum complete: N/A. Visualize and Verify Site with Patient/Guarantor: N/A. Relevant Radiology Images available: Yes. Pre-op teaching completed and patient verbalized understanding. The risks, benefits, and alternatives of sedation and/or procedure were discussed by physician. The patient agrees to continue. Procedure started. PERRLA. Strong, equal hand senior underwriting assistant bilaterally. Lungs clear x 5 lobes. IV Site on Arrival: 18 gauge in the left anticubital. IV Fluids: 0.9% NaCl at KVO. 600 mL infused prior to parking lot laborer. Pre Procedural Pulses: bilateral dorsalis pedis was Doppled. Pre Procedural Pulses: bilateral posterior tibial was Doppled. Oxygen started at 2liters/min via nasal canula. bilateral groins was prepped with chloroprep then draped in the usual sterile fashion. Physician notified. Baseline sample Acquired. HR: 88 BPM. Physician arrived. Physician scrubbed in. Immediate Pre-Procedure Time Out. Correct Patient: Yes; Correct Procedure: Yes; Correct Site: Yes; Correct Patient Position: Yes; Correct Supplies: Yes; Dried Flammable Prep: Yes; Blood Products Available: N/A;. Lidocaine 1% infiltrated to the left groin. Arterial access obtained with micropuncture set. The 6FR sheath was unable to advance. A 6Fr glidesheath inserted OTW. A 5Fr UF catheter in over wire. Abdominal aortogram performed in AP @ 10 mL/sec for a total of 30 mL. glidewire inserted through the catheter. Right common iliac selected and arteriogram with runoff performed @ 10 mL/sec for a total of 30 mL. Right popliteal selected and arteriogram performed. Right posterior tibial selected and arteriogram performed. Catheter removed over the standard wire. A Manual Compression was successful obtaining hemostatsis at the Left Femoral artery insertion site. Post Procedure: Pulses reassessed and unchanged. PERRLA. Strong, equal hand senior underwriting assistant bilaterally. No VTE prophylaxis required. Medication's Wasted: Lidocaine 1% = 3 mL. Medication's Wasted: Heparin = 1000 units. Medication's Wasted: Other = Versed 1 mg. Medication's Wasted: Other = Fentanyl 25 mg. Total IV fluids: 74 mL. Contrast type used: Visipaque 320 mgI/mL, 500 mL bottle. Complications: None. Estimated blood loss: 5mL-10mL. Responsiveness - Normal response to verbal stimuli; alert and oriented, PERRLA. Airway - Unaffected, no intervention required; spontaneous ventilation. Circulation: W/N/L, pulses unchanged. Nausea/Vomiting: No. Procedure completed. Patient transferred by bed to 1st floor. Vital chart was stopped. Procedure Medications Start: 6:08 AM Stop: 6:08 AM Medication: Fentanyl Amount: 50 mcg Route: I.V. Start: 6:13 AM Stop: 6:13 AM Medication: Versed Amount: 1 mg Route: I.V. Start: 6:25 AM Stop: 6:25 AM Medication: Versed Amount: 1 mg Route: I.V. Start: 6:40 AM Stop: 6:40 AM Medication: Versed 1 mg and Fentanyl 25 mcg Amount: 1 Route: I.V. Start: 7:06 AM Stop: 7:06 AM Medication: Fentanyl Amount: 50 mcg Route: I.V. I, the attending physician, have reviewed and verified all procedure medications. Yes, all medications given per verbal order History/Risk Factors Hypertension: Yes Dyslipidemia: No Peripheral Arterial Disease (PAD): Yes Obesity: No Renal Disease: No Prior Interventions PCI: No CABG: No Valve Surgery: No Report Signatures Finalized by Otto Jensen MD on 03/15/2022 08:56 PM
--- NOTE | 2022-03-01 06:15 | P.PN_ITS ---
Subjective Subjective: (Please note this documentation is for 02/28/2021) Patient is overall doing well. No significant leg pain Vitals/I&O/Wt Last Vital Signs Temp 99 F 03/01/22 04:00 Pulse 95 03/01/22 04:00 Resp 17 03/01/22 04:00 BP 158/87 03/01/22 04:00 Pulse Ox 96 03/01/22 04:00 02/28/22 02/28/22 03/01/22 14:59 22:59 06:59 Intake Total 340 / 340 1880 / 2220 100 / 2320 Output Total 1050 / 1050 1000 / 2050 Balance 340 / 340 830 / 1170 -900 / 270 Physical Exam Narrative: GENERAL: The patient is alert and orientedx3 HEENT: No significant pallor, icterus or lymphadenopathy. RESPIRATORY: Clear to auscultation bilterally HEART: The heart sounds are normal. No significant murmurs ABDOMEN: No vessel pulsations or distention. No tenderness. No organomegaly appreciated. Bowel sounds are normally heard. EXTREMITIES: The right foot has bandage. A posterior tibial and dorsalis pedis pulse on the left ankle is barely palpable. MUSCULOSKELETAL: No acute joint deformities or swelling SKIN: There are no significant rashes or ecchymosis NEUROPSYCHIATRIC: The patient is alert and oriented x3. Data : 02/26/22 02:58 02/26/22 02:58 Micro: Microbiology 02/22/22 14:47 Gram Stain - Final Other Source Anaerobic Culture - Preliminary Wound Culture - Final Strep agalactiae - (group b) 02/22/22 14:47 Gram Stain - Final Toe - Right Anaerobic Culture - Preliminary Tissue Culture - Final Strep agalactiae - (group b) 02/24/22 16:04 Gram Stain - Final Other Source Anaerobic Culture - Preliminary Wound Culture - Final Strep agalactiae - (group b) 02/24/22 16:04 Gram Stain - Final Foot - Right Tissue Culture - Final Strep agalactiae - (group b) A&P Assessment and plan (1) Peripheral arterial disease: Patient was found to have high-grade lesion on the femoral artery on the right side. Plan was to perform peripheral intervention today however because of Family Resource Coordinator scheduling had to be postponed to tomorrow. N.p.o. past midnight. Status: Acute (2) Diabetic foot infection: Patient status post amputation of the third, fourth and fifth rays. Had evidence of osteomyelitis. Currently he is on multiple antibiotics. Remains afebrile. Status: Acute (3) Hypertension: Controlled. Status: Acute (4) Diabetes: Aggressive management of diabetes as per the primary care. Status: Acute (5) Leukocytosis: Most likely related to the infection. Management with antibiotics as per the primary. Status: Acute (6) Cellulitis of foot, right: Patient status post incision and drainage, status post amputation of the third fourth and fifth rays. Clinically seems to be stable. Status: Acute Plan Mild hypokalemia-requires potassium supplement Leukocytosis, possibly from sepsis Attestations Medical Necessity Statement*: Care expected to cross 2 midnights. Coding Level of Care Code Acute Rake Operator for Ekaterina Cisneros Diagnoses Peripheral arterial disease I73.9 Diabetic foot infection E11.628; L08.9 Hypertension I10 Diabetes E11.9 Leukocytosis D72.829 Cellulitis of foot, right L03.115
--- NOTE | 2022-03-01 06:19 | W.PM.OPSUD ---
Surgery/Procedure H&P Update DATE OF PROCEDURE: March 01, 2022 DATE H&P PERFORMED: 02/25/22 H&P UPDATE INFORMATION: I have reviewed H&P completed within last 30 days, I have examined patient prior to procedure and No changes to prior documentation PREOP DIAGNOSIS: Severe lifestyle limiting claudication/ osteomyelitis/ PAD PRIMARY INDICATION FOR PROCEDURE: Severe lifestyle limiting claudication/ osteomyelitis/ PAD PLANNED PROCEDURE: Operation Date: 03/01/22 Proposed Procedures Peripheral angiogram with possible intervention PATIENT REASSESSED PRIOR TO SEDATION, WITH NO CHANGE NOTED: Yes PHYSICAL EXAM: alert, oriented x 3, clear to auscultation bilaterally and regular rate & rhythm AIRWAY EVAL/ANESTHESIA PLAN: ASA IV, Monitored Anesthesia, Local Anesthesia, Risks, benefits & alternatives of sedation and/or procedure discussed and Patient agrees to continue as planned
--- NOTE | 2022-03-01 06:48 | P.PN_ITS ---
Subjective Subjective: Patient had peripheral angiogram today that did not show critical stenosis in the above the knee vessels on the right lower extremity. His anterior tibial artery is proximally occluded and the vessel reconstitutes via collaterals. Peroneal and PT arteries are patent with good run off Vitals/I&O/Wt Last Vital Signs Temp 99 F 03/01/22 04:00 Pulse 95 03/01/22 04:00 Resp 17 03/01/22 04:00 BP 158/87 03/01/22 04:00 Pulse Ox 96 03/01/22 04:00 02/28/22 02/28/22 03/01/22 14:59 22:59 06:59 Intake Total 340 / 340 1880 / 2220 100 / 2320 Output Total 1050 / 1050 1000 / 2050 Balance 340 / 340 830 / 1170 -900 / 270 Physical Exam Narrative: GENERAL: The patient is alert and orientedx3 HEENT: No significant pallor, icterus or lymphadenopathy. RESPIRATORY: Clear to auscultation bilterally HEART: The heart sounds are normal. No significant murmurs ABDOMEN: No vessel pulsations or distention. No tenderness. No organomegaly appreciated. Bowel sounds are normally heard. EXTREMITIES: The right foot has bandage. A posterior tibial and dorsalis pedis pulse on the left ankle is barely palpable. MUSCULOSKELETAL: No acute joint deformities or swelling SKIN: There are no significant rashes or ecchymosis NEUROPSYCHIATRIC: The patient is alert and oriented x3. Data : 03/01/22 12:36 03/01/22 12:36 Micro: Microbiology 02/22/22 14:47 Gram Stain - Final Other Source Anaerobic Culture - Preliminary Wound Culture - Final Strep agalactiae - (group b) 02/22/22 14:47 Gram Stain - Final Toe - Right Anaerobic Culture - Preliminary Tissue Culture - Final Strep agalactiae - (group b) 02/24/22 16:04 Gram Stain - Final Other Source Anaerobic Culture - Preliminary Wound Culture - Final Strep agalactiae - (group b) 02/24/22 16:04 Gram Stain - Final Foot - Right Tissue Culture - Final Strep agalactiae - (group b) A&P Assessment and plan (1) Peripheral arterial disease: Peripheral angiogram performed today. It did not show critical stenosis in the above the knee vessels on the right lower extremity. His anterior tibial artery is proximally occluded and the vessel reconstitutes via collaterals. Peroneal and PT arteries are patent with good run off. Medical therapy.Continue Eliquis Status: Acute (2) Diabetic foot infection: Patient status post amputation of the third, fourth and fifth rays. Had evidence of osteomyelitis. Currently he is on multiple antibiotics. Remains afebrile. Status: Acute (3) Hypertension: Controlled. Status: Acute (4) Diabetes: Aggressive management of diabetes as per the primary care. Status: Acute (5) Leukocytosis: Most likely related to the infection. Management with antibiotics as per the primary. Status: Acute (6) Cellulitis of foot, right: Patient status post incision and drainage, status post amputation of the third fourth and fifth rays. Clinically seems to be stable. Status: Acute Plan Mild hypokalemia-requires potassium supplement Leukocytosis, possibly from sepsis Attestations Medical Necessity Statement*: Care expected to cross 2 midnights. Coding Level of Care Code Acute Chicken Cleaner for prisca Cisneros Diagnoses Peripheral arterial disease I73.9 Diabetic foot infection E11.628; L08.9 Hypertension I10 Diabetes E11.9 Leukocytosis D72.829 Cellulitis of foot, right L03.115
--- NOTE | 2022-03-01 07:30 | PC.NURSE ---
Patient received from lab director on bed. at bedside.
[2022-03-01 09:13] LABS: Glucose Point of Care 114 mg/dL (70-110)
[2022-03-01] MEDS: ALPRAZolam 0.5 mg Tablet 0.25 MG PO ×2 (09:15→21:11)
[2022-03-01] MEDS: aspirin 81 mg EC Tablet PO (09:15)
[2022-03-01] MEDS: pantoprazole DR 40 mg Tablet PO (09:15)
[2022-03-01] MEDS: atorvastatin 40 mg Tablet 20 MG PO (09:15)
[2022-03-01] MEDS: metoprolol tartrate 50 mg Tablet PO ×2 (09:16→18:06)
[2022-03-01] MEDS: insulin lispro 100 unit/1 mL 8 UNIT SUBCUT ×3 (09:16→20:36)
[2022-03-01] MEDS: fentaNYL 50 mcg/mL INJ 2mL IVP (09:17)
[2022-03-01] MEDS: sodium chloride 0.9% 1,000 ML 75 ML IV ×2 (09:24→21:15)
--- NOTE | 2022-03-01 11:30 | PC.NURSE ---
Patient had large, brown BM using bedpan.
[2022-03-01 11:42] LABS: Glucose Point of Care 128 mg/dL (70-110)
--- NOTE | 2022-03-01 12:20 | P.PN_ITS ---
Subjective Subjective: Seen this AM. He came back from procedure. He is doing well. Cultures growing group B strep. Vitals/I&O/Wt Last Vital Signs Temp 99 F 03/01/22 04:00 Pulse 86 03/01/22 08:00 Resp 15 03/01/22 09:17 BP 158/87 03/01/22 04:00 Pulse Ox 98 03/01/22 09:17 02/28/22 03/01/22 03/01/22 22:59 06:59 14:59 Intake Total 1880 / 2220 100 / 2320 993.75 / 993.75 Output Total 1050 / 1050 1000 / 2050 Balance 830 / 1170 -900 / 270 993.75 / 993.75 Physical Exam Narrative: General: Alert oriented x3, patient seen laying in bed Cardio: Regular rate rhythm, normal S1-S2, Respiratory: Good bilateral air entry, no wheezes no rhonchi appreciated GI: Abdomen soft, nontender, nondistended, bowel sounds + Extremities: right foot wrapped with bandage Data : 02/26/22 02:58 02/26/22 02:58 Micro: Microbiology 02/22/22 14:47 Gram Stain - Final Other Source Anaerobic Culture - Final Wound Culture - Final Strep agalactiae - (group b) 02/22/22 14:47 Gram Stain - Final Toe - Right Anaerobic Culture - Final Tissue Culture - Final Strep agalactiae - (group b) 02/24/22 16:04 Gram Stain - Final Other Source Anaerobic Culture - Preliminary Wound Culture - Final Strep agalactiae - (group b) 02/24/22 16:04 Gram Stain - Final Foot - Right Tissue Culture - Final Strep agalactiae - (group b) A&P Assessment and plan (1) Peripheral arterial disease: Status: Acute (2) Diabetic foot infection: Status: Acute (3) SHELDON (acute kidney injury): Status: Acute (4) Hypertension: Status: Acute (5) Diabetes: Status: Acute (6) Leukocytosis: Status: Acute (7) Sepsis: Status: Acute (8) Cellulitis of foot, right: Status: Acute (9) Hyponatremia: Status: Acute Plan #Peripheral arterial disease #Sepsis secondary to osteomyelitis 3-5th metatarsals and cellulitis, nonhealing diabetic foot ulcer right plantar surface (Pt tachycardic, febrile at admission, with evidence of end organ dysfunction (Acute kidney injury), elevated wbc [id number] at admission #Pt s/p I&D, and extensive debridement of right foot wound with amputation of 3rd, 4th, 5th toe) #Mild SHELDON on CKD secondary to sepsis on admission #Poorly controlled type 2 diabetes mellitus complicated by hyperglycemia #Dehydration? - improved #History of amputated toe #Hyponatremia - resolved ? Stop vancomycin and Zosyn. Cultures growing group B strep. We will give patient a dose of ceftriaxone IV today and tomorrow. Then discharge on oral Augmentin 875 mg twice daily for 14 days total. He will follow-up with podiatry clinic for further management. Appointment has been scheduled for March 07 at 3:[address] Vasquez will see him. ?Discontinue IV fluids today. ? SHELDON resolved ? MRI did show osteomyelitis with sinus tracts.? Patient is status post incision and drainage with general surgery and extensive debridement with orthopedic surgery. ? Arterial Dopplers and CT abdomen runoff completed.? Patient has multiple high levels of high-grade stenosis on right side.? Patient had angiogram today. Moderate disease in SFA. Below the knee good runoff with patent peroneal. Collaterals also present. No revascularization needed. Continue medical management. ? Tight glucose control and nutrition to be optimized.? Patient has been advised to take protein shakes. ? DC tomorrow. Full code Attestations Medical Necessity Statement*: DC tomorrow. He will need to stay today for monitoring s/p angiogram. Coding Level of Care Code Acute Manager Proposal for [facility] Diagnoses Peripheral arterial disease I73.9 Diabetic foot infection E11.628; L08.9 SHELDON (acute kidney injury) N17.9 Hypertension I10 Diabetes E11.9 Leukocytosis D72.829 Sepsis A41.9 Cellulitis of foot, right L03.115 Hyponatremia E87.1
[2022-03-01] MEDS: insulin glargine 100 units/1 mL 35 UNIT SUBCUT ×2 (12:43→20:36)
[2022-03-01 12:48] LABS: Basophils # 0.1 10^3/uL (0.0-0.1); Basophils % 0.6 %; Eosinophils # 0.3 10^3/uL (0.0-0.8); Eosinophils % 2.3 %; Hematocrit 37.9 % (42.0-52.0); Hemoglobin 11.5 g/dL (11.7-16.6); Lymphocytes # 2.4 10^3/uL (0.8-4.8); Lymphocytes % 18.2 %; Mean Corpuscular HGB Conc 30.3 g/dL (30.0-36.0); Mean Corpuscular Hemoglobin 25.7 pg (28.0-34.0); Mean Corpuscular Volume 84.8 fl (80-94); Mean Platelet Volume 9.1 fL (7.4-10.4); Monocytes # 0.8 10^3/uL (0.2-0.9); Monocytes % 6.2 %; Neutrophils # 9.51 10^3/uL (1.8-7.7); Neutrophils % 71.9 %; Nucleated Red Blood Cells % 0 %; Platelet Count 557 10^3/cmm (130-400); Red Blood Count 4.47 10^6/uL (4.1-5.3); White Blood Count 13.2 10^3/uL (4.0-10.0)
[2022-03-01 13:02] LABS: Anion Gap 15.9 (5-19); Blood Urea Nitrogen 10 mg/dL (6-20); Carbon Dioxide 22 mmol/L (22-29); Chloride 99 mmol/L (98-107); Glomerular Filtration Rate 73.4 mL/min (90-130); Glucose 112 mg/dL (65-115); Osmolality Calculated 276 mOsm/kg (285-295); Potassium 3.9 mmol/L (3.5-5.1); Sodium 133 mmol/L (136-145)
[2022-03-01] MEDS: cefTRIAXone 1,000 MG in sodium chloride 0.9% (plus) 50 ML 100 MG IV (15:59)
--- NOTE | 2022-03-01 16:48 | PC.NURSE ---
Patient has just finished eating a sandwich and baked beans. He declined to have his blood sugar checked at this time.
--- NOTE | 2022-03-01 17:02 | PM.PN ---
Subjective Subjective: No complaints with right foot. Status post angiogram today Vitals/I&O/Wt Last Vital Signs Temp 99 F 03/01/22 04:00 Pulse 2 L 03/01/22 14:00 Resp 15 03/01/22 12:15 BP 147/106 03/01/22 12:15 Pulse Ox 98 03/01/22 09:17 03/01/22 03/01/22 03/01/22 06:59 14:59 22:59 Intake Total 100 / 2320 1353.75 / 1353.75 Output Total 1000 / 2050 1040 / 1040 Balance -900 / 270 313.75 / 313.75 Physical Exam Narrative: Right foot wound looks good. Predominantly viable muscle with minimal fibronecrotic tissue. Data : 03/01/22 12:36 03/01/22 12:36 Micro: Microbiology 02/22/22 14:47 Gram Stain - Final Other Source Anaerobic Culture - Final Wound Culture - Final Strep agalactiae - (group b) 02/22/22 14:47 Gram Stain - Final Toe - Right Anaerobic Culture - Final Tissue Culture - Final Strep agalactiae - (group b) 02/24/22 16:04 Gram Stain - Final Other Source Anaerobic Culture - Preliminary Wound Culture - Final Strep agalactiae - (group b) A&P Assessment and plan (1) Osteomyelitis of right foot: Status: Acute (2) Status post amputation of right foot through metatarsal bone: Wound bed looks surprisingly good. Patient can follow-up with wound clinic. He can proceed with delayed closure or wound management based on his response to treatment. Status: Acute Attestations Medical Necessity Statement*: Okay for discharge per Ortho Coding Level of Care Code Acute Hvac Technician for [facility] Diagnoses Osteomyelitis of right foot M86.9 Status post amputation of right foot through metatarsal bone Z89.431
[2022-03-01] MEDS: acetaminophen 325 mg Tablet 650 MG PO (18:06)
--- NOTE | 2022-03-01 18:11 | PC.NURSE ---
Using the BSC, patient had large brown BM.
[2022-03-01 20:26] LABS: Glucose Point of Care 304 mg/dL (70-110)
[2022-03-01] MEDS: insulin lispro 100 unit/1 mL SUBCUT (20:35)
[2022-03-01] MEDS: morphine 4 mg/mL SDV 1 mL 1 MG IVP (21:12)
[2022-03-02] VITALS (7 sets, daily range): BP systolic 130–143; BP diastolic 69–92; PULSE 77–88; RESP 10–18; TEMP 36.7–37; O2SAT 93–98
[2022-03-02] MEDS: sodium chloride 0.9% 1,000 ML 75 ML IV (04:16)
[2022-03-02 06:11] LABS: Glucose Point of Care 110 mg/dL (70-110)
[2022-03-02] MEDS: metoprolol tartrate 50 mg Tablet PO (08:08)
[2022-03-02] MEDS: pantoprazole DR 40 mg Tablet PO (08:08)
[2022-03-02] MEDS: aspirin 81 mg EC Tablet PO (08:08)
[2022-03-02] MEDS: sennosides-docusate Tablet 1 TAB PO (08:08)
[2022-03-02] MEDS: atorvastatin 40 mg Tablet 20 MG PO (08:08)
[2022-03-02] MEDS: insulin glargine 100 units/1 mL 35 UNIT SUBCUT (08:09)
--- NOTE | 2022-03-02 08:15 | P.DS_ITS ---
Discharge Providers Date of Admission: 02/21/22 22:31 Date of Discharge: March 02, 2022 Attending Provider at Admission: Gonzalo Robles MD Attending Provider at Discharge: Amarilys Lewis MD Diagnoses at Discharge Discharge Diagnosis (1) Peripheral arterial disease: Status: Acute (2) Diabetic foot infection: Status: Acute (3) Hypertension: Status: Acute (4) Diabetes: Status: Acute (5) Leukocytosis: Status: Acute (6) Cellulitis of foot, right: Status: Acute Reason for Visit Reason for Visit: sore on R foot Brief History: As per Dr. Robles Karel Sinha is a 41 year old male who is a resident of [place], carries history of diabetes, hypertension, DVT, left toe amputation, was recently discharged on 02/03 after management of right foot diabetic ulcer(puncture wound beginning of January) CT scan did not show any signs of subcutaneous emphysema, no evidence osteomyelitis during that hospitalization noted, cultures remain negat aryan, he was discharged on Bactrim and Lovaqin presented today with chief complaint of recurrent nausea vomiting, worsening of pain and drainage from right foot wound. Patient is stating that he finishes 1 week antibiotic regimen, he was compliant with his medications until Monday, he has been experiencing recurrent emesis.? Initially vomitus was bilious however it has become dark and he has been e xperiencing substernal sharp pain.? In total he has experienced 10-12 episodes of emesis.? His last Eliquis dose was on Monday.? He has not taken his insulin since Monday as well. He started noticing drainage from his plantar right foot ulcer, it is associated with swelling and pain at rest.? This pain gets worse when he puts pressure on that foot. In the ER he was diagnosed with sepsis related to nonhealing diabetic foot ulcer, there is purulent drainage from plantar surface of right foot.? Foot x- ray has not shown signs of osteomyelitis I requested MRI without contrast, I have reduced the dose of insulin as his creatinine has worsened, he has hyperglycemia, he is febrile tachycardic He has received IV fluids and vancomycin No signs of septic shock Patient is planning to go back to [place] within a month but willing to do stay for the appropriate medical treatment or surgical intervention Hospital Course Hospital Course Patient was admitted with sepsis secondary to diabetic foot ulcer. He underwent incision and drainage with general surgery. MRI was completed which showed osteomyelitis 3rd-5th metatarsals and deep-seated abscess. He was then extensively debrided by orthopedic surgery and amputation was performed for 3rd- 5th metatarsal with deep washout. All cultures grew group B strep. There was also arterial Doppler obtained at admission which showed multiple high-grade levels of stenosis on right side. CTA abdomen runoff was completed. Interventional cardiology was consulted. Patient underwent angiogram which showed moderate disease in SFA with below the knee circulation being patent. Collaterals also present. Patient did not need any revascularization. Medical management recommended. Patient's white count improved from 21,000 down to 13,000. He overall feels better. Dehydration also improved. Hyponatremia resolved. There was a mild SHELDON present on admission most likely secondary to dehydration and sepsis. That also normalized. Patient is to be sent home on Eliquis atorvastatin aspirin for PAD. He will also be given Augmentin 875 twice daily for 14 days. Patient will follow up with podiatry outpatient for further care. He is also being given an appointment for wound care clinic. Patient is from [place] and will follow up with infectious disease doctor and his primary care doctor once he gets back to [place] on March 23. As per patient's request glucometer lancets and strips were sent to pharmacy for him. He was also given refills for 1 month supply for all his medications at this time. I also discussed with him the importance of tight glucose controlled for healing of his wound. and him are in agreement and demonstrated underst anding. Patient will be discharged home in stable condition. Physical Exam Narrative: General: Alert oriented x3, patient seen laying in bed Cardio: Regular rate rhythm, normal S1-S2, femoral angiogram site appears good with no evidence of fluctuance or evidence of hematoma. Respiratory: Good bilateral air entry, no wheezes no rhonchi appreciated GI: Abdomen soft, nontender, nondistended, bowel sounds + Extremities: right foot wrapped with bandage Discharge Data Studies Completed and Pending Completed Studies During Hospitalization Category Date Time Status CTA runoff [CT angio abd aorta runof [id number]] Stat Cat Scan 02/24/22 11:12 Completed XR chest 1V portable [id number] Stat Exams 02/21/22 21:04 Completed XR elbow LT 2V [id number] Routine Exams 02/27/22 14:05 Completed XR foot RT min 3V* [id number] Stat Exams 02/21/22 21:14 Completed MR foot RT wo/w con [id number] Routine MRI 02/22/22 00:13 Completed US arterial duplex lower extremity bilat [CV arterial Ultrasound 02/22/22 00:13 [place] [id number]] Routine Pending at discharge Category Date Time Status SHOWER ROOM ATTENDANT request for service Routine Exams 03/01/22 05:54 Taken Anaerobic Culture Routine Lab 02/24/22 16:04 Results Tissue Culture and Gram Stain Routine Lab 02/24/22 Ordered Wound Culture and Gram Stain Routine Lab 02/24/22 16:04 Results Pathology: Surgical [PTH] Routine Pth 02/24/22 16:28 Received Radiology Impressions Chest X-Ray 02/21/22 21:04 IMPRESSION: No acute findings. Foot X-Ray 02/21/22 21:14 IMPRESSION: No acute findings. Foot MRI 02/22/22 00:13 IMPRESSION: 1. Significant progression of adverse changes within the RIGHT foot since the prior study of 02/01/2022 which was performed without IV contrast. 2. There is now osteomyelitis involving portions of the third, fourth and fifth metatarsals. Most significant destruction involving the fourth metatarsal head. 3. The extensive soft tissue thickening and inflammatory changes surrounding the distal metatarsals and the proximal toes and the ulceration tract along the plantar surface of the foot but no enhancement. No focal abscess. 4. Extensive soft tissue edema surrounding the foot has progressed. 5. Small fluid collections intertarsal at the third and fourth, fourth and fifth metatarsal heads. No enhancement. Most consistent with synovitis and may be treated synovitis/cellulitis as there is no enhancement. Aorta w/Runoff CTA 02/24/22 11:12 IMPRESSION: 1. Atherosclerotic aorta but no abdominal aortic aneurysm. 2. Bilateral iliac artery stents are patent. 3. A left femoral to popliteal bypass graft is patent. 4. Multiple high-grade stenoses in the distal right superficial femoral artery, popliteal artery and anterior tibial artery. 5. The arteries in the left lower leg are patent. 6. There is a 2.3 cm fluid collection in the plantar soft tissues of the right foot with overlying infiltration consistent with infection and abscess. Elbow X-Ray 02/27/22 14:05 IMPRESSION: 1. Soft tissue swelling about the elbow with a possible anterior sail sign suggestive of a joint effusion which can be associated with an occult fracture, typically in the region of the radius in an adult patient, no such fractures seen on this exam. Consider follow-up exam in 5-7 days. Infection may also be a consideration given the soft tissue swelling, please correlate clinically. 2. Minimal distal triceps tendon degenerative calcification. Laboratory Results WBC 13.2 10^3/uL (4.0-10.0) H 03/01/22 12:36 RBC 4.47 10^6/uL (4.1-5.3) 03/01/22 12:36 Hgb 11.5 g/dL (11.7-16.6) L 03/01/22 12:36 Hct 37.9 % (42.0-52.0) L 03/01/22 12:36 MCV 84.8 fl (80-94) 03/01/22 12:36 MCH 25.7 pg (28.0-34.0) L 03/01/22 12:36 MCHC 30.3 g/dL (30.0-36.0) 03/01/22 12:36 RDW 14.0 % (12.1-15.1) 03/01/22 12:36 Plt Count 557 10^3/cmm (130-400) H 03/01/22 12:36 MPV 9.1 fL (7.4-10.4) 03/01/22 12:36 Neut % (Auto) 71.9 % 03/01/22 12:36 Lymph % (Auto) 18.2 % 03/01/22 12:36 Mineral % (Auto) 6.2 % 03/01/22 12:36 Eos % (Auto) 2.3 % 03/01/22 12:36 Baso % (Auto) 0.6 % 03/01/22 12:36 Neut # (Auto) 9.51 10^3/uL (1.8-7.7) H 03/01/22 12:36 Lymph # (Auto) 2.4 10^3/uL (0.8-4.8) 03/01/22 12:36 Mineral # (Auto) 0.8 10^3/uL (0.2-0.9) 03/01/22 12:36 Eos # (Auto) 0.3 10^3/uL (0.0-0.8) 03/01/22 12:36 Baso # (Auto) 0.1 10^3/uL (0.0-0.1) 03/01/22 12:36 Nucleated RBC % (auto) 0 % 03/01/22 12:36 Nucleated RBCs # 0.0 /100WBC 03/01/22 12:36 ESR 57 mm/hr (0-10) H 02/21/22 21:28 Sodium 133 mmol/L (136-145) L 03/01/22 12:36 Potassium 3.9 mmol/L (3.5-5.1) 03/01/22 12:36 Chloride 99 mmol/L (98-107) 03/01/22 12:36 Carbon Dioxide 22 mmol/L (22-29) 03/01/22 12:36 Anion Gap 15.9 (5-19) 03/01/22 12:36 BUN 10 mg/dL (6-20) 03/01/22 12:36 Creatinine 1.1 mg/dL (0.7-1.2) 03/01/22 12:36 GFR Calculation 73.4 mL/min (90-130) L 03/01/22 12:36 Glucose 112 mg/dL (65-115) 03/01/22 12:36 POC Glucose 110 mg/dL (70-110) 03/02/22 06:07 Calculated Osmolality 276 mOsm/kg (285-295) L 03/01/22 12:36 Lactic Acid 2.5 mmol/L (0.5-2.2) H 02/21/22 21:28 Lactic Acid (Sepsis) 1.4 mmol/L (0.5-2.2) 02/22/22 00:45 Lactate 1.3 mmol/L (0.5-2.2) 02/22/22 05:00 Calcium 9.0 mg/dL (8.5-10.5) 03/01/22 12:36 Magnesium 1.9 mg/dL (1.7-2.3) 02/26/22 02:58 Total Bilirubin 0.4 mg/dL (0.15-1.2) 02/21/22 21:28 AST 6 U/L (0-40) 02/21/22 21:28 ALT 8 U/L (0-41) 02/21/22 21:28 Alkaline Phosphatase 131 IU/L (40-130) H 02/21/22 21:28 C-Reactive Protein 348.9 mg/L (0.0-4.9) H 02/22/22 05:00 Total Protein 8.0 g/dL (6.6-8.7) 02/21/22 21:28 Albumin 3.5 g/dL (3.5-5.2) 02/21/22 21: Globulin 4.5 g/dL (1.3-4.6) 02/21/22 21:28 Procalcitonin 0.80 ng/mL (0-0.5) H 02/21/22 21:28 Vancomycin Trough 15.6 ug/mL (10-15) H 03/01/22 04:34 Vitals Last Vital Signs Temp 98.6 F 03/02/22 04:19 Pulse 84 03/02/22 07:01 Resp 10 L 03/02/22 07:01 BP 143/92 03/02/22 07:01 Pulse Ox 96 03/02/22 07:01 Discharge Plan Discharge Patient Disposition: Home Condition: Stable Prescriptions: [place]'s Solution 0.125 % Solution 1 applic topical Q12H 14 Days Qty: 473 0RF Stool Softener-Laxative 8.6-50 mg Tablet 1 tab PO DAILY 14 Days Qty: 14 0RF amoxicillin-pot clavulanate 875-125 mg tablet 1 tab PO BID 14 Days Qty: 28 0RF atorvastatin 40 mg tablet 40 mg PO DAILY 30 Days Qty: 30 0RF (DME) Accu-Chek Guide Me Glucose Mtr Misc See Rx Instructions .Route Qty: 1 0RF Rx Instructions: As directed (DME) Accu-Chek Guide test strips Strip See Rx Instructions .Route Qty: 100 0RF Rx Instructions: As directed (DME) Accu-Chek Multiclix Lancet Misc See Rx Instructions .Route Qty: 100 0RF Rx Instructions: As directed hydrocodone-acetaminophen 5-325 mg tablet 1 tab PO Q6H PRN (Reason: pain) Qty: 10 0RF Continued Lantus Solostar U-100 Insulin 100 unit/mL (3 mL) Insulin Pen 35 unit SUBCUT BID 30 Days Qty: 3 1RF metoprolol tartrate 50 mg Tablet 50 mg PO BID 30 Days Qty: 60 0RF acetaminophen 500 mg Tablet 1,000 mg PO Q6H PRN (Reason: pain/fever) 0RF aspirin 81 mg Tablet,Delayed Release (Dr/Ec) 81 mg PO QAM 30 Days Qty: 30 0RF Eliquis 2.5 mg Tablet 2.5 mg PO BID 30 Days Qty: 60 0RF Changed insulin lispro 100 unit/mL insulin pen See Rx Instructions .ROUTE .COMPLEX Qty: 3 0RF Rx Instructions: 8 unit subcutaneously with breakfast and lunch 10 unit at dinner Skip dose if not eating meal Discontinued atorvastatin 20 mg tablet 20 mg PO BEDTIME 0RF Discharge Orders: Discharge Order (Routine); Ordered 03/02/22 Ordered By: Amarilys Lewis Other Ambulatory Orders: DME: Walker (Order) Location: None Selected Ordered By: Amarilys Lewis Referrals: Rufino Vasquez DPM [Physician] - (You have a follow up appointment with Dr. Vasquez on March 07 at 3:30 PM. If you are unable to keep this follow up appointment please contact the office to rescedule.) Tyler Ruvalcaba MD [Physician] - (prn) [facility], [Staff Physician] - 1-3 days (A follow up appointment for your wound has been made for MondayMarch 04 at 10:00 am. If you are unable to keep this appointment please call to rescedule.) Discharge Diet: Cardiac and Diabetic Discharge Activity: Increase activity as tolerated Patient Instructions: Hydrocodone/Acetaminophen (By mouth), Amoxicillin/Clavulanate Potassium (By mouth) (Augmentin, Augmentin..., Atorvastatin (By mouth), Senna (By mouth), Acute Wound Care (DC), Peripheral Vascular Angioplasty (DC), Opioid Safety Activity Restrictions/Additional Instructions: Please follow up with your primary care doctor once you get back to [facility]. Discharge Attestations Time Spent in Discharge Care*: greater than 30 min Quality Metrics Clinical Quality Measures [ No reported AMI, CVA or VTE this stay] Coding Level of Care Code Acute Chg FW DC note Diagnoses Peripheral arterial disease I73.9 Diabetic foot infection E11.628; L08.9 Hypertension I10 Diabetes E11.9 Leukocytosis D72.829 Cellulitis of foot, right L03.115
--- NOTE | 2022-03-02 08:40 | PC.NURSE ---
provider on unit for assessment and plan of care instruction received to give hydrocodone 5/325 PO x 1 now
[2022-03-02] MEDS: HYDROcodone-acetaminophen 5-325 mg Tablet 1 TAB PO (09:07)
--- NOTE | 2022-03-02 09:12 | P.PN_ITS ---
Subjective Subjective: Patient is doing well. No complaints of leg pain Vitals/I&O/Wt Last Vital Signs Temp 98.6 F 03/02/22 04:19 Pulse 84 03/02/22 07:01 Resp 10 L 03/02/22 07:01 BP 143/92 03/02/22 07:01 Pulse Ox 96 03/02/22 07:01 03/01/22 03/02/22 03/02/22 22:59 06:59 14:59 Intake Total 1608.75 / 2962.50 1026.25 / 3988.75 272 / 272 Output Total 1260 / 2300 800 / 3100 400 / 400 Balance 348.75 / 662.50 226.25 / 888.75 -128 / -128 Physical Exam Narrative: GENERAL: The patient is alert and orientedx3 HEENT: No significant pallor, icterus or lymphadenopathy. RESPIRATORY: Clear to auscultation bilterally HEART: The heart sounds are normal. No significant murmurs ABDOMEN: No vessel pulsations or distention. No tenderness. No organomegaly appreciated. Bowel sounds are normally heard. EXTREMITIES: The right foot has bandage. A posterior tibial and dorsalis pedis pulse on the left ankle is barely palpable. MUSCULOSKELETAL: No acute joint deformities or swelling SKIN: There are no significant rashes or ecchymosis NEUROPSYCHIATRIC: The patient is alert and oriented x3. Data : 03/01/22 12:36 03/01/22 12:36 Micro: Microbiology 02/22/22 14:47 Gram Stain - Final Other Source Anaerobic Culture - Final Wound Culture - Final Strep agalactiae - (group b) 02/22/22 14:47 Gram Stain - Final Toe - Right Anaerobic Culture - Final Tissue Culture - Final Strep agalactiae - (group b) 02/24/22 16:04 Gram Stain - Final Other Source Anaerobic Culture - Preliminary Wound Culture - Final Strep agalactiae - (group b) A&P Assessment and plan (1) Peripheral arterial disease: Peripheral angiogram performed yesterday. It did not show critical stenosis in the above the knee vessels on the right lower extremity. His anterior tibial artery is proximally occluded and the vessel reconstitutes via collaterals. Peroneal and PT arteries are patent with good run off. Medical therapy.Continue Eliquis Status: Acute (2) Diabetic foot infection: Patient status post amputation of the third, fourth and fifth rays. Had evidence of osteomyelitis. Currently he is on multiple antibiotics. Remains afebrile. Status: Acute (3) Hypertension: Controlled. Status: Acute (4) Diabetes: Aggressive management of diabetes as per the primary care. Status: Acute (5) Leukocytosis: Most likely related to the infection. Management with antibiotics as per the primary. Status: Acute (6) Cellulitis of foot, right: Patient status post incision and drainage, status post amputation of the third fourth and fifth rays. Clinically seems to be stable. Status: Resolved Plan Mild hypokalemia-requires potassium supplement Leukocytosis, possibly from sepsis Attestations Medical Necessity Statement*: Care expected to cross 2 midnights. Coding Level of Care Code Acute Facilities Plant Engineer for Ekaterina Cisneros Diagnoses Peripheral arterial disease I73.9 Diabetic foot infection E11.628; L08.9 Hypertension I10 Diabetes E11.9 Leukocytosis D72.829 Cellulitis of foot, right L03.115
[2022-03-02] MEDS: sodium hypochlorite 0.125% Btl 473 mL 1 APPLIC TOPICAL (10:17)
[2022-03-02 11:10] LABS: Glucose Point of Care 217 mg/dL (70-110)
--- NOTE | 2022-03-02 11:10 | PC.NURSE ---
Discharge instructions given to patient and patient and verbalized understanding of all instructions including follow up care and wound care was demonstrated by .
== END 2022-03-02 11:45 | disposition home or self-care (01) | DRG 854 ==
LOC: ER 22:31 → MEDSURG 23:08 → CSU 03-01 07:25
PROVIDERS: Family Medicine; Internal Medicine; Orthopaedic Surgery; Surgery; Admitting Provider Internal Medicine; Emergency Provider Emergency Medicine; Visit Provider Internal Medicine
PROC: 0KDV0ZZ Extraction of Right Foot Muscle, Open Approach (ICD-10-PCS; principal; 2022-02-22 15:00)
PROC: 0Y6V0Z0 Detachment at Right 4th Toe, Complete, Open Approach (ICD-10-PCS; principal; 2022-02-24 16:00)
PROC: B41DYZZ Fluoroscopy of Aorta and Bilateral Lower Extremity Arteries using Other Contrast (ICD-10-PCS; principal; 2022-03-01 06:00)
DX: A41.9 Sepsis, unspecified organism (principal); M86.171 Other acute osteomyelitis, right ankle and foot; L03.115 Cellulitis of right lower limb; N17.9 Acute kidney failure, unspecified; E87.1 Hypo-osmolality and hyponatremia; I82.441 Acute embolism and thrombosis of right tibial vein; E11.69 Type 2 diabetes mellitus with other specified complication; E11.65 Type 2 diabetes mellitus with hyperglycemia; E11.22 Type 2 diabetes mellitus with diabetic chronic kidney disease; E11.621 Type 2 diabetes mellitus with foot ulcer; I12.9 Hypertensive chronic kidney disease with stage 1 through stage 4 chronic kidney disease, or unspecified chronic kidney disease; N18.9 Chronic kidney disease, unspecified; Z86.718 Personal history of other venous thrombosis and embolism; Z89.422 Acquired absence of other left toe(s); E86.0 Dehydration; E11.51 Type 2 diabetes mellitus with diabetic peripheral angiopathy without gangrene; Z95.820 Peripheral vascular angioplasty status with implants and grafts; B95.1 Streptococcus, group B, as the cause of diseases classified elsewhere; Z79.4 Long term (current) use of insulin; Z79.82 Long term (current) use of aspirin; Z79.01 Long term (current) use of anticoagulants
CPT/HCPCS: 36415; 36416; 71045; 73070; 73630; 73720; 75625; 75635; 75716; 80048; 80053; 80202; 82962; 83605; 83735; 84145; 85025; 85651; 86140; 87040; 87070; 87075; 87077; 87176; 87186; 87205; 88307; 88311; 93005; 93925; 96365; 96372; 96375; 97116; 97161; 99285; A9579; C1769; C1887; C1894; J0696; J1100; J1170; J1644; J1650; J1815 ×2; J2250; J2270; J2405; J2543; J2704; J3010; J3370; J7030; J7040; J7050; Q9967

== ENCOUNTER → 2022-03-04 11:28 | Outpatient (BNVA) | payer SELFPAY | PROVIDERS: Visit Provider Emergency Medicine | DX: E11.628 Type 2 diabetes mellitus with other skin complications (principal); L08.9 Local infection of the skin and subcutaneous tissue, unspecified | CPT/HCPCS: 87070; 87176; 87205 ==

== ENCOUNTER → 2022-03-07 15:33 | Outpatient (BNVA) | payer SELFPAY | PROVIDERS: Visit Provider Podiatrist Foot & Ankle Surgery | DX: E11.628 Type 2 diabetes mellitus with other skin complications (principal); L08.9 Local infection of the skin and subcutaneous tissue, unspecified | CPT/HCPCS: 73630 ==

== ENCOUNTER 2022-03-11 05:56 | Day surgery (SDC) | payer SELFPAY ==
[2022-03-10 12:39] VITALS: BMI 31.2
[2022-03-11] VITALS (10 sets, daily range): BP systolic 105–135; BP diastolic 64–84; PULSE 77–86; RESP 16–18; TEMP 36.6–36.8; O2SAT 96–99
[2022-03-11] MEDS: sodium chloride 0.9% 1,000 ML 30 ML IV (06:36)
[2022-03-11 06:45] LABS: Glucose Point of Care 142 mg/dL (70-110)
--- NOTE | 2022-03-11 07:31 | ANES.PREANE2 ---
Pre-Anesthetic Assessment Height/Weight: Height 1.85 m Weight 107.501 kg Temp Pulse Resp BP Pulse Ox 98.2 F 86 16 135/80 98 03/11/22 06:25 03/11/22 06:25 03/11/22 06:25 03/11/22 06:25 03/11/22 06:25 Preop Diagnosis: Diabetic foot ulcer, right foot. Right ankle equinus. Operation Date: 03/11/22 07:50 Proposed Procedures p Transmetatarsal amputation, toe flap .[id number],61448,10264,M86.9(Right) - Rufino Vasquez DPM s Primary Wound Closure(Right) - MARIE Berrios tendo Achilles lengthening all right lower extremity(Right) - Rufino Vasquez DPM Familial anesthetic complications: None Was Beta Darnell taken within 24 hours: N/A Was Clonidine taken within 24 hours: N/A Last intake: Intake Last Liquid Date 03/10/22 Last Liquid Time 18:30 Last Solid Date 03/10/22 Last Solid Time 18:30 Social Tobacco and No alcohol Exam alert, oriented x 3, clear to auscultation bilaterally and regular rate & rhythm Airway Mallampati: Class II Dentition: other (missing) Pulmonary None reported CV/HEM Hypertension and Peripheral Vascular Disease None reported Hepatic None reported GI None reported Metabolic Diabetes Mellitus [facility] [place] None reported Neuropsych None reported Anesthetic Plan ASA status: 3 Anesthesia: MAC Risk of > 500 ml blood loss (7ml/kg in children): No Medications/Allergies Home Medications Medication Instructions Recorded Confirmed Last Taken Type insulin glargine 100 unit/mL (3 35 unit (0.35 mL) SUBCUT BID 30 02/03/22 03/11/22 03/10/22 20:00 Rx mL) subcutaneous pen (Lantus Days #3 ml Solostar U-100 Insulin) metoprolol tartrate 50 mg tablet 50 mg PO BID 30 Days #60 tab 02/03/22 03/11/22 03/11/22 05:00 Rx amoxicillin 875 mg-potassium 1 tab PO BID 14 Days #28 tab 03/02/22 03/11/22 03/10/22 20:00 Rx clavulanate 125 mg tablet apixaban 2.5 mg tablet (Eliquis) 2.5 mg PO BID 30 Days #60 tab 05/11/22 05/20/22 05/18/22 20:00 Rx aspirin 81 mg tablet,delayed 81 mg PO QAM 30 Days #30 tab 03/02/22 03/11/22 03/10/22 08:00 Rx release atorvastatin 40 mg tablet 40 mg PO DAILY 30 Days #30 tab 03/02/22 03/11/22 03/10/22 20:00 Rx blood sugar diagnostic (Accu-Chek #100 ea 03/02/22 03/10/22 Unknown Rx Guide test strips) blood-glucose meter (Accu-Chek #1 ea 03/02/22 03/10/22 Unknown Rx Guide Me Glucose Mtr) hydrocodone 5 mg-acetaminophen 325 1 tab PO Q6H PRN #10 tab 03/02/22 03/11/22 Unknown Rx mg tablet insulin lispro 100 unit/mL See Rx Instructions .ROUTE 03/02/22 03/11/22 03/10/22 19:00 Rx subcutaneous pen .COMPLEX #3 ml lancets (Accu-Chek Multiclix #100 ea 03/02/22 03/10/22 Unknown Rx Lancet) sennosides 8.6 mg-docusate sodium 1 tab PO DAILY 14 Days #14 tab 03/02/22 03/10/22 Unknown Rx 50 mg tablet (Stool Softener-Laxative) sodium hypochlorite 0.125 % 1 applic TOPICAL Q12H 14 Days #473 03/02/22 03/10/22 Unknown Rx solution ([place]'s Solution) ml Allergies Allergy/AdvReac Type Severity Reaction Status Date / Time No Known Allergies Allergy Verified 03/10/22 12:30 Current Medications Generic Name Dose Route Start Last Admin Trade Name Freq PRN Reason Stop Dose Admin Sodium Chloride 1,000 mls @ 30 mls/hr 03/11/22 06:15 03/11/22 06:36 Sodium Chloride 0.9% IV 03/12/22 06:14 30 mls/hr .Q24H URSULA Administration PFSH Anesthesia Medical History SHELDON (acute kidney injury) Amputated toe Cellulitis Diabetes Diabetes Foot pain Hypercalcemia Hypertension Peripheral arterial disease Puncture wound Surgical History H/O toe surgery Family History Other Diabetes Social History Smoking and tobacco status: current every day smoker Alcohol intake: never Data Anesthesia Cardiac Studies: No Data to Display
--- NOTE | 2022-03-11 07:56 | W.PM.OPSUD ---
Surgery/Procedure H&P Update DATE OF PROCEDURE: March 11, 2022 DATE H&P PERFORMED: 03/07/22 CHANGES TO PREVIOUS DOCUMENTATION: None PREOP DIAGNOSIS: Diabetic foot ulcer, right foot. Right ankle equinus. PLANNED PROCEDURE: Operation Date: 03/11/22 07:50 Proposed Procedures p Transmetatarsal amputation, toe flap .[id number],92916,M86.9(Right) - Rufino Vasquez DPM s Primary Wound Closure(Right) - Rufino Vasquez DPM s tendo Achilles lengthening all right lower extremity(Right) - Rufino Vasquez DPM
[2022-03-11 07:59] LABS: Blood Urea Nitrogen 15 mg/dL (6-20); Calcium 8.2 mg/dL (8.5-10.5); Carbon Dioxide 24 mmol/L (22-29); Chloride 101 mmol/L (98-107); Glomerular Filtration Rate 73.4 mL/min (90-130); Glucose 150 mg/dL (65-115); Osmolality Calculated 288 mOsm/kg (285-295); Sodium 137 mmol/L (136-145)
[2022-03-11 08:02] LABS: Anion Gap 16.2 (5-19); Potassium 4.2 mmol/L (3.5-5.1)
[2022-03-11] MEDS: lidocaine 2% INJ 20 mL INJECTION (08:25)
--- NOTE | 2022-03-11 09:36 | XR_ITS ---
WS: [id number] Right foot, 2 views, 03/11/2022 Clinical Data: post op Comparison: Right foot, 03/07/2022. Findings: The right first and second toes and distal first and second metatarsals have been resected. There is postoperative air in the soft tissues adjacent to the surgical site. XR/XR foot RT 2V [id number] Impression: Resection of the right first and second toes and distal first and second metata rsals.
--- NOTE | 2022-03-11 09:36 | PM.OP ---
Operative Report Date of procedure: March 11, 2022 Pre-op diagnosis: Diabetic foot ulcer right foot exposed bone. Right ankle equinus. Post-op diagnosis: Same Procedure done: Transmetatarsal amputation, primary delayed closure, toe flap and Achilles lengthening all right lower extremity. CPT codes: 81752, 91230, 28951, 90543 Implants: 2-0 Vicryl, 3-0 nylon, 4-0 nylon Specimens removed/disposition: None Pathology: Partial first and second ray right foot sent to pathology for permanent. Surgeon: Rufino Vasquez D.P.M. [employer] Brake Coupler: Butch Estimated blood loss: Less than 5 See intraoperative documentation IV fluids: None Urine output: None Complications: None Findings: Successful right Achilles lengthening percutaneous, increased ankle joint dorsiflexion intraoperatively, able to successfully close soft tissue envelope with transmetatarsal amputation to the right foot. Brief History: Mr. Sinha is a pleasant 41-year-old diabetic male with history of arterial disease and osteomyelitis to the right lower extremity.? Has had a history of lower extremity revascularization.? Status post partial ray resection right third, fourth and fifth ray due to osteomyelitis of metatarsal heads.? Wound is clinically stable.? I discussed a variety of options with this patient given the extent and size of his wound.? One option would be local wound care and may require hyperbarics and wound VAC to accelerate healing.? I also discussed transmetatarsal amputation and skin flap from medial foot including the great toe and Achilles lengthening with goals of delayed closure.? We also considered the functionality of his foot in its current state with a first and second metatarsal only.? After discussing risks and benefits of both conservative and surgical management he would like to proceed with surgery at the next available opportunity this could be set up outpatient on 03/11/2022. Procedure: Under mild sedation the patient was brought to the operating room and remained on the gurney in supine position. A timeout was performed. Anesthesia was then administered by the anesthesia service. Local anesthesia injected by myself consisting of one-to-one mixture 0.25% Marcaine plain and 1% lidocaine plain and a right ankle block and posterior leg block fashion. Well-padded pneumatic tourniquet applied high calf to the right lower extremity. Right lower extremity was then scrubbed, prepped and draped utilizing normal aseptic technique. Attention was then directed to the right posterior Achilles tendon where 1.5 cm proximal to Achilles insertion of the posterior right heel a hemisection performed percutaneously with a #15 blade medially of the Achilles tendon followed by a second hemisection 1.5 cm proximal to this with a lateral hemisection followed by a third and final hemisection medially 1.5 cm proximal to the last. Incisions were flushed with saline solution, dorsiflexion of the right ankle was significantly improved and nearly 10 degrees intraoperatively post percutaneous Achilles lengthening Ogle type technique. The incisions were flushed again and closed with 4-0 nylon and covered with an OpSite. Attention was then directed to the right foot where bones exposed or palpated at the fifth, fourth and third metatarsals these were exposed as well as extensor and flexor tendons. Wound at the lateral right forefoot measured approximately 11 cm x 5 cm x 2 cm without purulent drainage or proximal lymphangitic streaking, very mild periwound erythema. Devitalized tissue was debrided including epidermis, dermis, subcutaneous tissue, fat layer, muscle, tendon and bone this was done sharply and excisionally nature with post debridement wound measurement 12 cm x 6 cm x 2.5 cm. Further planning for complete transmetatarsal amputation was carried out, sagittal saw to transect the diaphyseal portion of the metatarsals 5, 4, 3, 2 and 1 were performed and soft tissue was dissected around the first and second metatarsal distally and first and second toes and distal osteotomy fragment of metatarsals 3, 4 and 5 these were passed from operative field and metatarsal 1 and 2 and great toe and second toe sent to pathology for permanent. Incision was irrigated with copious months of sterile saline solution. A full-thickness incision with a #15 blade was utilized to maintain as much soft tissue medial as possible encompassing the entire great toe of the right foot this was dissected down to bone and proximally exposing the distal phalanx, proximal phalanx and head of the first metatarsal that were all passed from the operative field. Utilizing the entire soft tissue portion of the shelled out great toe a flap was made and rotated laterally with excellent soft tissue coverage adequate for primary delayed closure including the toe flap of the great toe. Soft tissue was remodeled to contour to the incision without excessive or redundant tissue. Further irrigation was performed and all extensor and flexor tendons were pulled under traction and transected proximally. Soft tissue flap was then closed utilizing 2-0 Vicryl, 3-0 Vicryl and 3-0 nylon with adequate soft tissue coverage and no tension. The incision site was then dressed with Adaptic, sterile 4 x 4's, Kerlix and Stanton wrap followed by application of cam boot to maintain ankle joint dorsiflexion at neutral. Tourniquet was deflated and a prompt hyperemic response was noted to the distal amputation stump. Patient tolerated the procedure well and was transferred to the PACU with vital signs stable and vascular status intact. Following a period of postoperative monitoring he will be discharged home. He is to remain strict nonweightbearing to the right foot. He is to elevate the right foot while resting. He will return to clinic on 03/14/2022 for dressing change and nurse visit. Will finish his oral antibiotics previously prescribed in clinic this is Augmentin 875/125 mg twice daily. I informed the patient's that should he fail to comply with weightbearing status and put weight on this it would likely dehisce and require further surgical intervention which would potentially entail below-knee amputation.
[2022-03-11] MEDS: fentaNYL 50 mcg/mL INJ 2mL IVP (10:01)
[2022-03-11] MEDS: HYDROcodone-acetaminophen 5-325 mg Tablet 1 TAB PO (10:32)
--- NOTE | 2022-03-11 11:00 | ANE.PACU2 ---
Inpatient post-anesthesia follow up: Airway intact: Yes Vital signs: Temperature 97.8 F Pulse Rate 80 Respiratory Rate 18 Blood Pressure 133/76 Pulse Oximetry 99 Oxygen Delivery Me thod Room Air Oxygen Flow Rate Fraction of Inspir ed Oxygen Hydration adequate: Yes Nausea and vomiting: No Pain level: 1 Mental status: Baseline
== END 2022-03-11 10:55 | disposition home or self-care (01) ==
PROVIDERS: Anesthesiology; PCP Physician Assistant; Visit Provider Podiatrist Foot & Ankle Surgery
PROC: (CPT 13160; principal; 2022-03-11 07:40)
PROC: (CPT 13160; 2022-03-11 07:40)
PROC: (CPT 28261; 2022-03-11 07:40)
DX: E11.621 Type 2 diabetes mellitus with foot ulcer (principal); M21.861 Other specified acquired deformities of right lower leg; I10 Essential (primary) hypertension; I73.9 Peripheral vascular disease, unspecified; E11.9 Type 2 diabetes mellitus without complications; Z79.4 Long term (current) use of insulin; F17.210 Nicotine dependence, cigarettes, uncomplicated; Z79.82 Long term (current) use of aspirin
CPT/HCPCS: 13160; 14350; 28805; 36416; 73620; 80048; 82962; 88305; 88311; J0690; J2250; J2704; J3010; J3490; J7030; L4361